=== PATIENT | male | born 1945 | race Caucasian/White ===

== ENCOUNTER 2022-10-19 07:22 | Outpatient (OUT) | payer MEDICARE, BC, SELFPAY ==
[2022-10-19 07:40] LABS: Basophils Absolute Auto 0.1 10^3/uL (0.0-0.1); Basophils Percent Auto 1.2 % (0.2-2.0); Eosinophils Absolute Auto 0.4 10^3/uL (0.0-0.7); Eosinophils Percent Auto 6.1 % (0.9-7.0); Hematocrit 42.2 % (42.0-54.0); Hemoglobin 14.1 g/dL (14.0-18.0); Immature Granulocytes Abs Auto 0.01 10^3/uL (0.00-0.03); Immature Granulocytes Pct Auto 0.2 % (0.0-0.5); Lymphocytes Absolute Auto 1.5 10^3/uL (1.2-3.8); Lymphocytes Percent Auto 23.5 % (20.5-60.0); Mean Corpuscular HGB Conc 33.4 g/dL (29.9-35.2); Mean Corpuscular Hemoglobin 33.7 pg (25.9-34.0); Mean Corpuscular Volume 100.7 fL (80.0-94.0); Mean Platelet Volume 9.7 fL (9.5-13.5); Monocytes Absolute Auto 0.8 10^3/uL (0.3-0.8); Monocytes Percent Auto 12.1 % (1.7-12.0); Neutrophils Absolute Auto 3.7 10^3/uL (1.4-6.5); Neutrophils Percent Auto 56.9 % (43.0-75.0); Platelet Count 240 10^3/uL (150-450); Red Blood Count 4.19 10^6/uL (4.70-6.10); Red Cell Distribution Width 14.3 % (11.0-15.0); White Blood Count 6.4 10^3/uL (4.0-11.0)
[2022-10-19 08:29] LABS: Alanine Aminotransferase 13 U/L (16-63); Albumin Globulin Ratio 1.1; Albumin Level 3.3 g/dL (3.4-5.0); Alkaline Phosphatase 74 U/L (46-116); Anion Gap 7.8; Aspartate Amino Transferase 9 U/L (15-37); BUN Creatinine Ratio 18.4; Bilirubin Total 0.5 mg/dL (0.2-1.0); Calcium 8.6 mg/dL (8.5-10.1); Carbon Dioxide 32.1 mmol/L (21.0-32.0); Chloride 103 mmol/L (98-107); Chol HDL Ratio 2.1; Cholesterol 160 mg/dL (<=200); Estimated GFR (African America >60 (>=60); Estimated GFR (Non-African Ame >60 (>=60); Free T3 2.01 pg/mL (2.18-3.98); Globulin 2.9 g/dL; Glucose 161 mg/dL (74-106); HDL Cholesterol 77 mg/dL (40-60); Potassium 3.9 mmol/L (3.5-5.1); Sodium 139 mmol/L (136-145); Thyroid Stimulating Hormone 4.536 uIU/mL (0.358-3.740); Total Protein 6.2 g/dL (6.4-8.2); Triglycerides 67 mg/dL (<=150); VLDL CHOLESTEROL 13.4 mg/dL
[2022-10-19 10:40] LABS: Estimated Average Glucose 171 mg/dL; Glycohemoglobin A1C 7.6 % (4.5-6.2)
[2022-10-20 08:12] LABS: PSA, Free <0.02 ng/mL; Prostate Specific Ag <0.1 ng/mL (0.0-4.0)
== END 2022-10-19 07:23 | disposition home or self-care (01) ==
LOC: LAB 07:27
PROVIDERS: PCP Family Medicine; Visit Provider Family Medicine
DX: E78.5 Hyperlipidemia, unspecified (principal); C61 Malignant neoplasm of prostate; I10 Essential (primary) hypertension; E11.9 Type 2 diabetes mellitus without complications; Z12.12 Encounter for screening for malignant neoplasm of rectum
CPT/HCPCS: 36415; 80053; 80061; 83036; 84153; 84154; 84436; 84443; 84481; 85025

== ENCOUNTER 2023-10-26 07:51 | Outpatient (OUT) | payer MEDICARE, BC, SELFPAY ==
[2023-10-26 08:22] LABS: Basophils Absolute Auto 0.1 10^3/uL (0.0-0.1); Basophils Percent Auto 1.5 % (0.2-2.0); Eosinophils Absolute Auto 0.2 10^3/uL (0.0-0.7); Eosinophils Percent Auto 3.4 % (0.9-7.0); Hematocrit 42.3 % (42.0-54.0); Hemoglobin 13.8 g/dL (14.0-18.0); Immature Granulocytes Abs Auto 0.01 10^3/uL (0.00-0.03); Immature Granulocytes Pct Auto 0.2 % (0.0-0.5); Lymphocytes Absolute Auto 1.6 10^3/uL (1.2-3.8); Mean Corpuscular HGB Conc 32.6 g/dL (29.9-35.2); Mean Corpuscular Hemoglobin 34.1 pg (25.9-34.0); Mean Corpuscular Volume 104.4 fL (80.0-94.0); Mean Platelet Volume 9.8 fL (9.5-13.5); Monocytes Absolute Auto 0.6 10^3/uL (0.3-0.8); Neutrophils Absolute Auto 2.2 10^3/uL (1.4-6.5); Neutrophils Percent Auto 47.9 % (43.0-75.0); Platelet Count 263 10^3/uL (150-450); Red Blood Count 4.05 10^6/uL (4.70-6.10); Red Cell Distribution Width 14.1 % (11.0-15.0); White Blood Count 4.7 10^3/uL (4.0-11.0)
[2023-10-26 08:31] LABS: Estimated Average Glucose 148 mg/dL; Glycohemoglobin A1C 6.8 % (4.5-6.2)
[2023-10-26 08:55] LABS: Alanine Aminotransferase 17 U/L (16-63); Albumin Globulin Ratio 1.4; Albumin Level 3.6 g/dL (3.4-5.0); Alkaline Phosphatase 70 U/L (46-116); Anion Gap 10.8; Aspartate Amino Transferase 11 U/L (15-37); BUN Creatinine Ratio 18.8; Bilirubin Total 0.8 mg/dL (0.2-1.0); Calcium 8.5 mg/dL (8.5-10.1); Carbon Dioxide 34.1 mmol/L (21.0-32.0); Chloride 102 mmol/L (98-107); Chol HDL Ratio 2.1; Cholesterol 172 mg/dL (<=200); Estimated GFR (African America >60 (>=60); Estimated GFR (Non-African Ame >60 (>=60); Free T3 2.45 pg/mL (2.18-3.98); Globulin 2.5 g/dL; Glucose 153 mg/dL (74-106); HDL Cholesterol 81 mg/dL (40-60); Potassium 3.9 mmol/L (3.5-5.1); Sodium 143 mmol/L (136-145); Thyroid Stimulating Hormone 4.549 uIU/mL (0.358-3.740); Total Protein 6.1 g/dL (6.4-8.2); Triglycerides 43 mg/dL (<=150); VLDL CHOLESTEROL 8.6 mg/dL
[2023-10-27 13:08] LABS: PSA, Free <0.02 ng/mL; Prostate Specific Ag <0.1 ng/mL (0.0-4.0)
== END 2023-10-26 07:52 | disposition home or self-care (01) ==
LOC: LAB 07:54
PROVIDERS: PCP Family Medicine; Visit Provider Family Medicine
DX: E78.5 Hyperlipidemia, unspecified (principal); E11.9 Type 2 diabetes mellitus without complications; I10 Essential (primary) hypertension; N40.0 Benign prostatic hyperplasia without lower urinary tract symptoms; Z12.12 Encounter for screening for malignant neoplasm of rectum
CPT/HCPCS: 36415; 80053; 80061; 83036; 84153; 84154; 84436; 84443; 84481; 85025

== ENCOUNTER 2023-11-02 08:15 | Outpatient (REF) | payer MEDICARE, BC, SELFPAY ==
[2023-11-02 13:00] LABS: Internal Control Within Normal Limits; Occult Blood Positive
== END 2023-11-02 08:16 | disposition home or self-care (01) ==
LOC: LAB 08:15
PROVIDERS: PCP Family Medicine; Visit Provider Family Medicine
DX: E78.5 Hyperlipidemia, unspecified (principal); E11.9 Type 2 diabetes mellitus without complications; I10 Essential (primary) hypertension; N40.0 Benign prostatic hyperplasia without lower urinary tract symptoms; Z12.12 Encounter for screening for malignant neoplasm of rectum
CPT/HCPCS: G0328

== ENCOUNTER 2024-05-30 13:00 | Outpatient (OUT) | payer MEDICARE, BC, SELFPAY ==
--- NOTE | 2024-05-30 13:20 | CT_ITS ---
[address] [address] Patient Name: SUHAS HAMMOND MRN: [id number] date: 1945 Sex: M Assigned Patient Location: LAB Current Patient Location: LAB Accession/Order Number: [id number] Exam Date: 05/30/2024 13:40 Report Date: 05/30/2024 14:59 At the request of: SILVER CHRISTIANSON Procedure: CT angio neck EXAM: CT angiogram of the head and neck using 100 mL of IV iodinated contrast. 3D images were generated on an independent workstation for better evaluation of the vasculature. NASCET criteria were used when evaluating the carotid arteries. Dose reduction technique used: Automated exposure control and/or adjustment of the mA and/or kV according to patient size and/or use of iterative reconstruction technique. REASON FOR EXAM: Vison Loss COMPARISON: None FINDINGS: CTA: No large vessel occlusion. No significant intracranial arterial stenoses. No arterial dissections. No intracranial aneurysms. Patent dural venous sinuses. Bilateral common carotid, bilateral internal carotid and bilateral vertebral arteries are patent without significant stenosis, aneurysm or dissection in the neck. Probable carotid bifurcation atherosclerotic plaque without significant associated stenosis. NON-VASCULAR: No mass effect or midline shift. No hydrocephalus. Paranasal sinuses and mastoid air cells are clear. Remainder unremarkable. CT/CT angio neck IMPRESSION: No acute arterial abnormalities in the head or neck. Electronically authenticated by: MADELEINE HARRISON Date: 05/30/2024 14:59
--- NOTE | 2024-05-30 13:20 | CT_ITS ---
[address] [address] Patient Name: SUHAS HAMMOND MRN: [id number] date: 1945 Sex: M Assigned Patient Location: LAB Current Patient Location: LAB Accession/Order Number: [id number] Exam Date: 05/30/2024 13:40 Report Date: 05/30/2024 14:59 At the request of: SILVER CHRISTIANSON Procedure: CT angio head EXAM: CT angiogram of the head and neck using 100 mL of IV iodinated contrast. 3D images were generated on an independent workstation for better evaluation of the vasculature. NASCET criteria were used when evaluating the carotid arteries. Dose reduction technique used: Automated exposure control and/or adjustment of the mA and/or kV according to patient size and/or use of iterative reconstruction technique. REASON FOR EXAM: Vison Loss COMPARISON: None FINDINGS: CTA: No large vessel occlusion. No significant intracranial arterial stenoses. No arterial dissections. No intracranial aneurysms. Patent dural venous sinuses. Bilateral common carotid, bilateral internal carotid and bilateral vertebral arteries are patent without significant stenosis, aneurysm or dissection in the neck. Probable carotid bifurcation atherosclerotic plaque without significant associated stenosis. NON-VASCULAR: No mass effect or midline shift. No hydrocephalus. Paranasal sinuses and mastoid air cells are clear. Remainder unremarkable. CT/CT angio head IMPRESSION: No acute arterial abnormalities in the head or neck. Electronically authenticated by: MADELEINE HARRISON Date: 05/30/2024 14:59
[2024-05-30 13:31] LABS: Estimated GFR (African America >60 (>=60 mL/min/1.73m^2); Estimated GFR (Non-African Ame >60 (>=60 mL/min/1.73m^2)
--- NOTE | 2024-05-30 13:59 | CA_ITS ---
Patient Name: SUHAS HAMMOND MR#: [id number] : 1945 Exam Date: 05/30/2024 Ordering Doctor: DR Avni Flynn . ECHOCARDIOGRAM REPORT PROCEDURE: CA ECHO DOPPLER COMPLETE INDICATIONS: Vision loss COMPARISON: None. DESCRIPTION: COMPLETE ECHOCARDIOGRAM Real-time transthoracic echocardiography with 2D, M-mode, spectral and color flow Doppler performed. QUALITY: Technical quality was good. LEFT VENTRICLE: Normal chamber size. Mild concentric left ventricular hypertrophy. Global left ventricular systolic function is normal. LV EF: Visual estimation of left ventricular ejection fraction is 65-70%. DIASTOLIC: Normal diastolic function. ATRIAL SEPTUM: LEFT ATRIUM: Mild dilatation. RIGHT ATRIUM: Mild dilatation. RIGHT VENTRICLE: Normal chamber size. Normal right ventricular systolic function. TRICUSPID VALVE: Normal mobility and thickness. No stenosis with mild regurgitation. Mild pulmonary hypertension. RVSP 42 mmHg MITRAL VALVE: Normal mobility and thickness. No evidence of mitral valve stenosis. There is no mitral annular calcification. Trivial mitral regurgitation. AORTIC VALVE: Normal trileaflet appearance. Mildly calcified left coronary cusp of the aortic valve. Normal leaflet mobility. No evidence of aortic valve stenosis. Trivial aortic regurgitation. AORTIC ROOT: Normal diameter and appearance. PULMONIC VALVE: Normal thickness and mobility. No stenosis. Trivial regurgitation. PERICARDIUM: No evidence of pericardial effusion. IVC: Collapses with inspirations. Normal size. PLEURA: CONCLUSION: 1. Mild concentric left ventricular hypertrophy with normal systolic function. LVEF is estimated at 65-70%. 2. Normal right ventricular size and systolic function. 3. Normal diastolic function. 4. Mild biatrial dilatation. 5. Mild tricuspid regurgitation. 6. Mildly elevated right-sided pressures. 7. If cardiac source of embolism is suspected then a transesophageal echocardiogram is a better test for evaluation. Adult Echocardiography Procedure Report Left Ventricle LVEDD (3.7 - 5.6 cm): 4.71 cm LVESD (2.2 - 4.0 cm): 3.06 cm LVIVS thickness (0.6 - 1.2 cm): 1.30 cm LVPW thickness (0.5 - 1.0 cm): 1.21 cm e': 0.10 m/s E - e': 8.91 LVOT Max Gradient: 5.81 mm[Hg], 5.98 mm[Hg] LVOT Area (cm2): 1.21 m/s Peak Velocity (LVOT): 1.20 m/s, 1.22 m/s Mean Velocity (LVOT): 0.77 m/s LVOT Diameter 2.15 cm Left Ventricular Ejection Fraction: 65-70 % Left Atrium LA Volume Index (2D A2C): 39.96 ml/m2 Left Atrium Systolic Dimension: 4.22 cm Mitral Valve MV E to A Ratio: 0.94 Mitral Valve A-Wave Peak Velocity: 0.96 m/s Mitral Valve E-Wave Peak Velocity: 0.90 m/s Right Ventricle RV Internal Diastolic Dimension: 3.58 cm Aorta AO Root Diam: 3.60 cm Ascending Ao Diam: 2.85 cm Aortic Valve AoV Area (Peak Zana): 2.51 cm2, 2.49 cm2 AoV Area (VTI): 2.36 cm2, 2.39 cm2 Peak Velocity(Antegrade Flow): 1.75 m/s Peak Gradient(Antegrade Flow): 12.30 mm[Hg] Mean Velocity(Antegrade Flow): 1.11 m/s Mean Gradient(Antegrade Flow): 5.81 mm[Hg] Velocity Time Integral: 40.90 cm Tricuspid Valve Peak Velocity (Regurgitant Flow): 2.55 m/s, 3.13 m/s, 2.93 m/s Pulmonic Valve Mean Gradient: 3.53 mm[Hg], 3.42 mm[Hg] Mean Velocity: 0.87 m/s, 0.86 m/s Peak Velocity: 1.37 m/s Peak Gradient: 7.50 mm[Hg], 7.50 mm[Hg] Right Atrium Right Atrium Systolic Pressure: 49.73 ml, 49.73 ml Dictated by: Quincy Ortiz M.D. on 05/30/2024 at 17:46 Approved by: Quincy Ortiz M.D. on 05/30/2024 at 18:44
== END 2024-05-30 13:01 | disposition home or self-care (01) ==
LOC: LAB 13:00
PROVIDERS: PCP Family Medicine; Visit Provider Family Medicine
DX: R06.02 Shortness of breath (principal); R07.9 Chest pain, unspecified
CPT/HCPCS: 36415; 70496; 70498; 82565; 93306; Q9967

== ENCOUNTER 2024-11-03 07:04 | Outpatient (OUT) | payer MEDICARE, BC, SELFPAY ==
--- OUTSIDE RECORDS SUMMARY | 2024-05-30 14:51 | XMS_ITS ---
Author Organization [facility] in [place] Address [address] [place] [address] Care Team Providers Care Vp Of Digital Marketing Name Role Phone Brenden Flynn Primary Care Provider REASON FOR VISIT ECHO RESULTS Encounters Encounter Location Date Provider Diagnosis [facility] [address] [place] [address] 05/30/2024 Brenden Flynn Plan Of Treatment No Information Progress Notes * Dawson HAMMOND RDOB:[birth year] (78 yo M)Acc No.[id number]:05/30/2024 Patient: Jorge Dawson GONCALVES :1945 A ge:78 Y S ex:Male Address:[address] [place], [place] [address] [address] * true * Date: Generated for Antonioi den/Fatraceyg/eTransmitting on: 0 11/03/2024 07:10 AM EDT
--- OUTSIDE RECORDS SUMMARY | 2024-08-21 06:15 | XMS_ITS ---
Author Organization [facility] in [place] Address [address] [place] [address] Care Team Providers Care Calciner Feeder Name Role Phone Brenden Flynn Primary Care Provider REASON FOR VISIT Presents to office alone for c/o sore throat x6 days. Said had a head cold when it started but those symptoms are better Medications Medication SIG (Take, Route, Frequency, Duration) Notes Start Date End Date Status traZODone HCl 50 MG 1 tablet Orally twic e daily for 90 days Active Viagra 100 MG 1 tablet as needed O rally Once a day for 90 days Active Pioglitazone HCl 45 MG Take 1 tablet by mouth once daily Orally Once a day for 90 days Active predniSONE 20 MG 2 tablets Orally Onc e a day for 5 days 08/21/2024 Active Azithromycin 250 MG 2 tabs today then 1 tab Orally daily for 5 days 08/21/2024 Active Lisinopril 40 MG Take 1 tablet by sonal th once daily for 90 Active metFORMIN HCl 500 MG 2 tablet with a aristides l Orally twice daily for 90 days 09/07/2022 Active Lancets Super Thin 28G - as directed Active Pantoprazole Sodium 40 MG 1 tablet 1/2 t o 1 hour before morning meal Orally Once a day for 90 days Active Invokana 100 MG 1 tablet before the first meal of the day Orally Once a day for 90 days Active Atorvastatin Calcium 20 MG Take 1 tablet by mouth once daily Orally Once a day for 90 days Active Accu-Chek Mary Plus - as directed In Vitro Active amLODIPine Besylate 5 MG Take 1 tablet b y mouth once daily for 90 Active Social History Tobacco Use: Social History Observation Description Date Details (start date - stop date) Never Smoker NA - NA Tobacco Use/Smoking Question Answer Notes Patient is a nonsmoker AUDIT-C (Standard) Question Answer Notes Did you have a drink containing alcohol in the p ast year? No Points 0 Interpretation Negative Vital Signs Temperature 99.1 degrees Fahrenheit 08/22/19 25 Blood pressure systolic 170 mm Hg 08/22/19 25 Blood pressure diastolic 84 mm Hg 025 Height 69 in 08/21/2024 Weight 176.2 lbs 08/21/2024 BMI 26.02 kg/m2 08/21/2024 Encounters Encounter Location Date Provider Diagnosis [facility] [address] [place] [address] 08/21/2024 Brenden Flynn Acute non-recurrent sinusitis, unspecified location J01.90 and Nasal congestion R09.81 Assessments Encounter Date Diagnosis (ICD Code) Assessment Notes Treatment Notes Treatment Clinical Notes Section Notes 08/21/2024 Acute non-recurrent sinusitis, unspecified location (ICD-10 - J01.90) Rest and drink more liquids, especially water. You may use a humidifier or vaporizer to help keep the drainage moist. Qsvu-ooa-caixnsi Nasal Saline may help the stuffy and runny nose. Use Ibuprofen and or Tylenol as needed for fever, chills, body aches or pain. Children 5 years old should not be given fkds-axt-uyurxry cough and cold medications such as guaifenesin and dextromethorphan. If you're over age 5, you may try azrc-cty-osqfknz cold medications such as guaifenesin and dextromethorphan, or multi-symptom cold reliever such as Dayquil to help reduce the symptoms. Antibiotics have been prescribed. You should take these until completed and follow the directions. Antibiotics can sometimes cause upset stomach, and in rare cases, serious allergic reactions or serious gastrointestinal problems. If you start having severe abdominal pain, severe vomiting, or bloody diarrhea, you should be reevaluated by your physician or urgent care immediately. Follow up with your Primary Care Provider or return to clinic if symptoms do not improve within 3-5 days 08/21/2024 Nasal congestion (ICD-10 - R09.81) Plan Of Treatment Medication Medication Name Sig Start Date Stop Date Notes predniSONE 20 MG 2 tablets Orally Once a day for 5 days Azithromycin 250 MG 2 tabs today then 1 tab Orally daily for 5 days 08/21/2024 Treatment Notes Assessment Notes Acute non-recurrent sinusiti s, unspecified location Rest and drink more liquids, especially water. You may use a humidifier or vaporizer to help keep the drainage moist. Ijbi-vbf-xpcdfud Nasal Saline may help the stuffy and runny nose. Use Ibuprofen and or Tylenol as needed for fever, chills, body aches or pain. Children 5 years old should not be given cybh-xoo-quwdjdo cough and cold medications such as guaifenesin and dextromethorphan. If you're over age 5, you may try jcxq-aae-xdrjbzn cold medications such as guaifenesin and dextromethorphan, or multi-symptom cold reliever such as Dayquil to help reduce the symptoms. Antibiotics have been prescribed. You should take these until completed and follow the directions. Antibiotics can sometimes cause upset stomach, and in rare cases, serious allergic reactions or serious gastrointestinal problems. If you start having severe abdominal pain, severe vomiting, or bloody diarrhea, you should be reevaluated by your physician or urgent care immediately. Follow up with your Primary Care Provider or return to clinic if symptoms do not improve within 3-5 days Next Appt Details Follow Up: 3-5 days if not i mproving, Reason: Progress Notes * Dawson CAIN RDOB:[birth year] (78 yo M)Acc No.[id number]:08/21/2024 Progress Note Patient: Dawson MASON Provider: Carolina Flynn ([facility] Madelyn :1945 A ge:78 Y S ex:Male Date:08/21/2024 Address:[address], [id number] Check In:10:04 AM ESTCheck O ut:10:38 AM EST Subjective: * Chief Complaints: * P resents to office alone for c/o sore throat x6 days. Said had a head cold when it started but those symptoms are better * HPI: S inusitis: The patient complains of symptoms of sinus infection. The symptoms have been present for 1-2 days. The symptoms are moderate. Symptomatic treatment has included OTC medication. Associated symptoms include headache, facial pain, runny nose, nasal congestion. * ROS: S kin: Rash d enies. E NT: Comments S ee HPI for details. C ardiovascular: Edema d enies. P alpitations d enies. ? R espiratory: Chest pain d enies. C ough d enies. W heezing?denies. G astrointestinal: Abdominal pain d enies. N ausea d enies. V omiting d enies. * Active Problem List Z91.81 History of falling Modified On:09/18/2022 Status:confirmed E78.5 Hyperlipidemia Modified On:09/23/2022 Status:confirmed I10 Hypertension Modified On:09/23/2022 Status:confirmed Z00.00 Well adult Modified On:09/18/2022 Status:confirmed R10.11 Abdominal pain, RUQ Modified On:09/18/2022 Status:confirmed C61 Carcinoma of prostat e Modified On:09/23/2022 Status:confirmed E11.9 Diabetes mellitus, t ype II Modified On:09/23/2022 Status:confirmed N40.0 Benign hypertrophy o f prostate Modified On:09/18/2022 Status:confirmed H54.7 Vision loss Modified On:05/24/2024 Status:confirmed * Medical History: * Surgical History: S eed Implant for Prostate Cancer 2004All teeth pulled shave biopsy right scalp * Hospitalization/Major Diagno stic Procedure: * Family History: F ather: 60 yrs. M other: 52 yrs. B rother(s): arthritis, osteoarthritis, diagnosed with Diabetes mellitus without mention of complication, type II or unspecified type, not stated as uncontrolled. S on(s): alive, diagnosed with Diabetes mellitus without mention of complication, type II or unspecified type, not stated as uncontrolled. D aughter(s): alive, diagnosed with Unspecified essential hypertension. S ister(s): diagnosed with Diabetes mellitus without mention of complication, type II or unspecified type, not stated as uncontrolled. 2 brother(s) , 4 sister(s) . 2 son(s) , 1 daughter(s) . . * Social History: T obacco Use: T obacco Use/Smoking P atient is a n onsmoker D rug/Alcohol: A HAI-C (Standard) D id you have a drink containing alcohol in the past year? N o P oints 0 I nterpretation N egative * Medications: T akingAccu-Chek Mary Plus(Glucose Blood) - Strip as directed In Vitro amLODIPine Besylate 5 MG Tablet Take 1 tablet by mouth once daily Atorvastatin Calcium 20 MG Tablet Take 1 tablet by mouth once daily Orally Once a day Invokana(Canagliflozin) 100 MG Tablet 1 tablet before the first meal of the day Orally Once a day Lancets Super Thin 28G(Lancets) - Miscellaneous as directed Lisinopril 40 MG Tablet Take 1 tablet by mouth once daily metFORMIN HCl 500 MG Tablet 2 tablet with a meal Orally twice daily Pantoprazole Sodium 40 MG Tablet Delayed Release 1 tablet 1/2 to 1 hour before morning meal Orally Once a day Pioglitazone HCl 45 MG Tablet Take 1 tablet by mouth once daily Orally Once a day traZODone HCl 50 MG Tablet 1 tablet Orally twice daily Viagra 100 MG Tablet 1 tablet as needed Orally Once a day Medication List reviewed and reconciled with the patientTaking Accu-Chek Mary Plus(Glucose Blood) - Strip as directed In Vitro Taking amLODIPine Besylate 5 MG Tablet Take 1 tablet by mouth once daily Taking Atorvastatin Calcium 20 MG Tablet Take 1 tablet by mouth once daily Orally Once a day Taking Invokana(Canagliflozin) 100 MG Tablet 1 tablet before the first meal of the day Orally Once a day Taking Lancets Super Thin 28G(Lancets) - Miscellaneous as directed Taking Lisinopril 40 MG Tablet Take 1 tablet by mouth once daily Taking metFORMIN HCl 500 MG Tablet 2 tablet with a meal Orally twice daily Taking Pantoprazole Sodium 40 MG Tablet Delayed Release 1 tablet 1/2 to 1 hour before morning meal Orally Once a day Taking Pioglitazone HCl 45 MG Tablet Take 1 tablet by mouth once daily Orally Once a day Taking traZODone HCl 50 MG Tablet 1 tablet Orally twice daily Taking Viagra 100 MG Tablet 1 tablet as needed Orally Once a day Medication List reviewed and reconciled with the patient Objective: * Vitals: W t:176.2lbs, Ht: 69 in, BP:170/84mm Hg, Temp:99.1F, BMI:26.02Index, Ht-cm: 175.26 cm, Wt-k.92 kg. * Examination: G eneral Examination: GENERAL APPEARANCE: in no acute distress, well developed, well nourished. ENT: ear and nose external appearance normal, tympanic membranes clear bilaterally, facial tenderness to palpation over sinuses. EYES: pupils equal, round, reactive to light and accomodations. ORAL CAVITY: mucosa moist. NECK: n daniel supple, full range of motion, no cervical lymphadenopathy. LUNGS: c lear to auscultation bilaterally. CARDIO: no murmurs, regular rate and rhythm, S1, S2 normal. ABDOMEN: soft, nontender , not distended, bowel sounds are active. SKIN: no suspicious lesions, warm and dry. EXTREMITIES: no clubbing, cyanosis, or edema. NEUROLOGIC: nonfocal, motor strength of upper/lower extremities intact , sensory exam intact. Assessment: * Assessment: 1. A cute non-recurrent sinusitis, unspecified location - J01.90 (Primary) 2 .?Nasal congestion - R09.81 Plan: * Treatment: * Procedure Codes: * Preventive Medicine: Screenings/Counseling: B [place] ACTION PLAN Above Normal BMI Follow-up D ietary management education, guidance, and counseling See treatment section of progress note for complete details of management plan. F ALL RISK SCREENING Fall Risk Assessment: N o falls in the past year * Follow Up: 3 -5 days if not improving * * Sign off status: Completed Visit Status: C HK (Check Out) true * Provider: Carolina Flynn ([facility])MD Date: 0 08/21/2024 Generated for Printi ng/Fatraceyg/eTransmitting on: 0 11/03/2024 07:10 AM EDT History and Physical Notes * Examination Category Sub-Category Detail Notes Category Not es General Examination GENERAL APPEARANCE: in no ac jaswant distress, well developed, well nourished ENT: ear and nose externa l appearance normal, tympanic membranes clear bilaterally, facial tenderness to palpation over sinuses EYES: pupils equal, round, reactive to light and accomodations NECK: neck supple, full ra nge of motion, no cervical lymphadenopathy CARDIO: no murmurs, regular rate and rhythm, S1, S2 normal LUNGS: clear to auscultatio n bilaterally ABDOMEN: soft, nontender , no t distended, bowel sounds are active NEUROLOGIC: nonfocal, motor stre ngth of upper/lower extremities intact , sensory exam intact SKIN: no suspicious lesion s, warm and dry EXTREMITIES: no clubbing, cyanosi s, or edema ORAL CAVITY: mucosa moist
--- OUTSIDE RECORDS SUMMARY | 2024-11-01 07:00 | XMS_ITS ---
Author Organization [facility] in [place] Address [address] [place] [address] Care Team Providers Care Clinical Services Professional Name Role Phone Brenden Flynn Primary Care Provider Allergies No Known Allergies REASON FOR VISIT Left hip pain- started over the weekend after a car ride, Has been taking Aleve and Tylenol- not sleeping as well as normally does since the pain, Due for yearly labs as well Medications Medication SIG (Take, Route, Frequency, Duration) Notes Start Date End Date Status Pantoprazole Sodium 40 MG 1 tablet 1/2 t o 1 hour before morning meal Orally Once a day for 90 days Active Pioglitazone HCl 45 MG Take 1 tablet by mouth once daily for 90 Active traZODone HCl 50 MG Take 1 tablet by sonal th twice daily for 90 Active Viagra 100 MG 1 tablet as needed O rally Once a day for 90 days Active Invokana 100 MG 1 tablet before the first meal of the day Orally Once a day for 90 days Active Lancets Super Thin 28G - as directed Active Lisinopril 40 MG Take 1 tablet by sonal th once daily for 90 Active metFORMIN HCl 500 MG 2 tablet with a aristides l Orally twice daily for 90 days 09/07/2022 Active predniSONE 20 MG 3 tablets Orally Onc e a day for 5 days 11/01/2024 Active Atorvastatin Calcium 20 MG Take 1 [...] Question Answer Notes Patient is a nonsmoker Problems Problem Type SNOMED Code ICD Code Onset Dates Problem Status W/U Status Risk Notes Problem Sciatica (32286216) Sciatic leg pain (M54.30) Active confirmed Vital Signs Blood pressure systolic 152 mm Hg 11/02/19 25 Blood pressure diastolic 82 mm Hg 025 Height 69 in 11/01/2024 Weight 172.0 lbs 11/01/2024 BMI 25.4 kg/m2 11/01/2024 Encounters Encounter Location Date Provider Diagnosis [facility] ([place], [place]) [address] [place] [address] 11/01/2024 Brenden Hoamee Sciatic leg pain M54 .30 ; Hyperlipidemia E78.5 ; Hypertension I10 ; Carcinoma of prostate C61 and Diabetes mellitus, type II E11.9 Assessments Encounter Date Diagnosis (ICD Code) Assessment Notes Treatment Notes Treatment Clinical Notes Section Notes 11/01/2024 Sciatic leg pain (ICD-10 - M54.30) 11/01/2024 Hyperlipidemia (ICD-10 - E78.5) 11/01/2024 Hypertension (ICD-10 - I10) 11/01/2024 Carcinoma of prostate (ICD-10 - C61) 11/01/2024 Diabetes mellitus, type II (ICD-10 - E11.9) Plan Of Treatment Medication Medication Name Sig Start Date Stop Date Notes predniSONE 20 MG 3 tablets Orally Once a day for 5 days Pending Test Test Name Order Date HEMOGLOBIN A1C (GLYCO) 11/01/2024 LIPID PANEL (CHOL/TRIG/HDL/LDL) 11/02/19 25 URIC ACID 11/01/2024 PSA-FREE AND TOTAL 11/01/2024 THYROID PANEL (T4/TSH/FREE T3) 5 CMP (COMP MET MELGAR) w/eGFR CKD-EPI 2024 CBC WITH DIFF 11/01/2024 Medications Administered Medication Instructions Date of Administration Dosage Notes Triamcinolone 40 mg/ml 11/01/2024 80 mg Progress Notes * MAURICIODawson WAYNE RDOB:[birth year] (79 yo M)Acc No.[id number]:11/01/2024 UNLOCKED PROGRESS NOTE Progress Note Patient: Dawson MASON Provider: Carolina Flynn ([facility])MD :1945 A ge:79 Y S ex:Male Date:11/01/2024 Address:[address] [place] [address] JESSI MUNOZ [id number] Check In:10:44 AM ESTCheck O ut:11:25 AM EST Subjective: * Chief Complaints: * 1 . Left hip pain- started over the weekend after a car ride. 2. Has been taking Aleve and Tylenol- not sleeping as well as normally does since the pain. 3. Due for yearly labs as well. * HPI: G eneral: was riding in a car for awhile - no injury - Left hip - getting wors -e sumit going on for 5 days tried motrina nd tyrlpnol no helping. * Medical History: A bdominal pain, RUQ, History of falling, Well adult, Hypertension, Diabetes mellitus, type II, Hyperlipidemia, Benign hypertrophy of prostate, Carcinoma of prostate, Rectal bleeding, Kidney stones. * Surgical History: S eed Implant for Prostate Cancer 2004, All teeth pulled , shave biopsy right scalp . * Hospitalization/Major Diagno stic Procedure: Carolina gaxiola Past Hospitalization. * Family History: F ather: 60 yrs. [...] Use/Smoking P atient is a n onsmoker * Medications: T aking Accu-Chek Mary Plus(Glucose Blood) - Strip as directed In Vitro , Taking amLODIPine Besylate 5 MG Tablet Take 1 tablet by mouth once daily , Taking Atorvastatin Calcium 20 MG Tablet Take 1 tablet by mouth once daily Orally Once a day , Taking Invokana(Canagliflozin) 100 MG Tablet 1 tablet before the first meal of the day Orally Once a day , Taking Lancets Super Thin 28G(Lancets) - Miscellaneous as directed , Taking Lisinopril 40 MG Tablet Take 1 tablet by mouth once daily , Taking metFORMIN HCl 500 MG Tablet 2 tablet with a meal Orally twice daily , Taking Pantoprazole Sodium 40 MG Tablet Delayed Release 1 tablet 1/2 to 1 hour before morning meal Orally Once a day , Taking Pioglitazone HCl 45 MG Tablet Take 1 tablet by mouth once daily , Taking traZODone HCl 50 MG Tablet Take 1 tablet by mouth twice daily , Taking Viagra 100 MG Tablet 1 tablet as needed Orally Once a day , Discontinued Azithromycin 250 MG Tablet 2 tabs today then 1 tab Orally daily , Discontinued predniSONE 20 MG Tablet 2 tablets Orally Once a day , Medication List reviewed and reconciled with the patient * Allergies: N .K.D.A. Objective: * Vitals: W t:172.0lbs, Ht: 69 in, BP:152/82mm Hg, BMI:25.4Index, Ht-cm: 175.26 cm, Wt-k.02 kg. * Examination: A bdomen Exam:: D edent ROM in hip -mor buttocks area. Assessment: * Assessment: 1. S ciatic leg pain - M54.30 (Primary) 2 . C arcinoma of prostate - C61? 3. D iabetes mellitus, type II - E11.9 4 . H yperlipidemia - E78.5 5 . H ypertension - I10 Plan: * Treatment: 2. C arcinoma of prostate L AB: HEMOGLOBIN A1C (GLYCO) L AB: LIPID PANEL (CHOL/TRIG/HDL/LDL) L AB: URIC ACID L AB: PSA-FREE AND TOTAL L AB: THYROID PANEL (T4/TSH/FREE T3) L AB: CMP (COMP MET MELGAR) w/eGFR CKD-EPI L AB: CBC WITH DIFF 3. D iabetes mellitus, type II L AB: HEMOGLOBIN A1C (GLYCO) L AB: LIPID PANEL (CHOL/TRIG/HDL/LDL) L AB: URIC ACID L AB: THYROID PANEL (T4/TSH/FREE T3) L AB: CMP (COMP MET MELGAR) w/eGFR CKD-EPI L AB: CBC WITH DIFF 4. H yperlipidemia L AB: HEMOGLOBIN A1C (GLYCO) L AB: LIPID PANEL (CHOL/TRIG/HDL/LDL) L AB: URIC ACID L AB: THYROID PANEL (T4/TSH/FREE T3) L AB: CMP (COMP MET MELGAR) w/eGFR CKD-EPI L AB: CBC WITH DIFF 5. H ypertension L AB: HEMOGLOBIN A1C (GLYCO) L AB: LIPID PANEL (CHOL/TRIG/HDL/LDL) L AB: URIC ACID L AB: THYROID PANEL (T4/TSH/FREE T3) L AB: CMP (COMP MET MELGAR) w/eGFR CKD-EPI L AB: CBC WITH DIFF * Therapeutic Injections: Triamcinolone 40 mg/ml : 80 mg (Route: Intramuscular) given by Danielle Tam SA on left deltoid (Sciatic leg pain) * Procedure Codes: [id number] [phone] THERAP.INJ. OF MED. INTRAMUSCULAR OR SUBCUTANEOUS, J3301 TMC ACET,PER 10MG., Units: 8.00 * Preventive Medicine: Screenings/Counseling: B PR ACTION PLAN Above Normal BMI Follow-up D ietary management education, guidance, and counseling * * Electronic signature of Brenden Flynn MD, [phone] on 11/03/2024 at 07:10 AM EDT Sign off status: Pending Visit Status: C HK (Check Out) * Provider: Carolina Flynn ([facility])MD Date: 0 11/01/2024 Generated for Erika crenshaw/Katy/eTcynsmitting on: 0 11/03/2024 07:10 AM EDT History and Physical Notes * HPI (History of Present Illness) Category Sub-Category Detail Notes Category Not es General was riding in a car for awhile - no injury - Left hip - getting wors -e sumit going on for 5 days tried motrina nd tyrlpnol no helping Examination Category Sub-Category Detail Notes Category Not es Abdomen Exam: Dedent ROM in hip -mor buttocks area
--- OUTSIDE RECORDS SUMMARY | 2024-11-03 07:10 | XMS_ITS | CCD ---
Author Organization [facility] Care Team Providers Care Net Lead Developer Name Role Phone DR SILVER FLYNN Attending Unavailable SAMMY, DR SHEPPARD Admitting Unavailable SAMMY, DR SHEPPARD Primary Care Unavailable DR SILVER FLYNN Consulting Unavailable DR SILVER FLYNN Attending Unavailable SAMMY, DR SHEPPARD Admitting Unavailable SAMMY, DR SHEPPARD Primary Care Unavailable MD Silver Flynn Primary Care Provider [phone] MD Tylor Matos Attending Provider [phone] Tylor Matos Unavailable Tylor Matos Admjimmy Unavailable Silver Flynn Primary Care Unavailable NO FAMILY, PHYSICIAN Primary Care Unavailable Tylor Matos Unavailable Tylor Matos Admitting Unavailable Problems Active Problems Problem Classification Problem Date Documented Da te Episodic/Chronic Cancer of prostate (1 source) Malignant neoplasm of prostate; Translations: [MALIGNANT NEOPLASM OF PROSTATE] Onset: 10-14-2021 Chronic Congestive heart failure; nonhypertensive (1 source) Unspecified diastolic (congestive) heart failure; Translations: [UNSPECIFIED DIASTOLIC HEART FAILURE] Onset: 10-14-2021 Chronic Diabetes mellitus without complication (4 sources) Type 2 diabetes mellitus without complications; Translations: [TYPE 2 DM WITHOUT COMPLICATIONS] Onset: 10-13-2021 Chronic Diabetes mellitus without complication (1 source) Other abnormal glucose; Translations: [OTHER ABNORMAL GLUCOSE] Onset: 10-14-2021 Episodic Disorders of lipid metabolism (1 source) Hyperlipidemia, unspecified; Translations: [HYPERLIPIDEMIA UNSPECIFIED] Onset: 10-14-2021 Chronic Hypertension with complications and secondary hypertension (1 source) Hypertensive heart disease with heart failure; Translations: [HTN HEART DISEASE W/HEART FAIL] Onset: 10-14-2021 Chronic Other screening for suspected conditions (not mental disorders or infectious disease) (1 source) Encounter for screening for malignant neoplasm of prostate; Translations: [ENC SCREEN MALIG NEOPLASM PROSTATE] Onset: 10-14-2021 Episodic Past or Other Problems Problem Classification Problem Date Documented Da te Episodic/Chronic Neoplasms of unspecified nature or uncertain behavior (1 source) Neoplasm of unspecified behavior of bone, soft tissue, and skin; Translations: [Neoplasm of unspecified behavior of bone, soft tissue, and skin] Onset: 10-18-2023 Episodic Other non-epithelial cancer of skin (1 source) Basal cell carcinoma of skin of scalp and neck; Translations: [Basal cell carcinoma of skin of scalp and neck] Onset: 11-17-2023 Episodic Results Test Name Value Interpretation Reference Range Facility [facility] 11-17-2023 L Specimen: [id number] Received: 11/17/23 Status: PANCHO Mora Num: [id number] Spec Type: Surgical Subm Dr: Tylor Matos MD Tissues: A Skin-Other than Cyst, tag, debridement or plastic repair (RT FOREHEAD) Procedures: MELY/Nikolai, Gross/Micro L4 Age/ Patient Sex Location Account Attending Physician Dawson Cain Jr 78/M [place] [id number] Tylor Matos MD SPEC NUM: [id number] RECD: 11/17/23 STATUS: PANCHO MORA NUM: [id number] ASHVIN: 11/17/[address]: Tylor Matos MD ENTERED: 11/17/[address] [facility] [address]: SPEC TYPE: Surgical DEPT: S ORDERED: HE/7, Gross/Micro L4 ORDERED: HE7, Gross/Micro L4 Pathological Diagnosis Forehead, right (reexcision): Residual basal cell carcinoma, ulcerated; superficial type, multifocal Actinic changes Changes consistent with prior excision/biopsy No carcinoma seen in the margins of the specimen Clinical Information Nonhealing lesion reexcisional biopsy. C44.41 Basal cell carcinoma scalp Gross Description Received in formalin labeled with the patient's name, date of and right forehead is an oriented ovoid excision of alanis skin measuring 3.0 x 2.7 x 0.4 cm in depth. The specimen has been tagged with a staple by the surgeon designating the 12 o'clock position. The surface contains a 2.0 x 1.2 cm jagged and scaly previous biopsy site that comes to within 0.3 cm of 12:00 0.5 cm of 3:00 and 9:00 and 0.4 cm 6:00. The specimen is inked as follows: 12-3 is orange, 3-6 is green, 6-9 is red, 9-12 is blue and the deep margin is black. The specimen is serially sectioned from 12:00 to 6:00 and sequentially submitted in A1-A4 as follows: A1: 12:00 and 6:00 tips A2-A4: 12:00 to 6:00 region Specimen: [id number] Received: 11/17/23 Status: PANCHO Mora Num: [id number] Spec Type: Surgical Subm Dr: Tylor Matos MD Tissues: A Skin-Other than Cyst, tag, debridement or plastic repair (RT FOREHEAD) Procedures: JUAN, Lani/Mariely L4 Patient: Dawson Cain Jr [id number] (Continued) Specimen: [id number] Received: 11/17/23 (Continued) Signed (signature on file) Silvestre Phillips Jr., MD 11/21/23 2698 Specimen: [id number] Received: 11/17/23 Status: PANCHO Mora Num: [id number] Spec Type: Surgical Subm Dr: Tylor Matos MD Tissues: A Skin-Other than Cyst, tag, debridement or plastic repair (RT FOREHEAD) Procedures: MELYLani Menchaca/Mariely L4 Patient: Dawson Cain Jr [id number] (Continued) Specimen: [id number] Received: 11/17/23 (Continued) CPT Codes 43758 Specimen: [id number] Received: 11/17/23 Status: PANCHO Mora Num: [id number] Spec Type: Surgical Subm Dr: Tylor Matos MD Tissues: A Skin-Other than Cyst, tag, debridement or plastic repair (RT FOREHEAD) Procedures: Nikolai, Gross/Micro L4 Patient: Dawson Cain Jr [id number] (Continued) Signed (signature on file) Silvestre Phillips Jr., MD 11/21/231204 [facility] [place] 10-18-2023 L Specimen: [id number] Received: 10/19/23 Status: PANCHO Mora Num: [id number] Spec Type: Surgical Subm Dr: Tylor Matos MD Tissues: A Skin-Other than Cyst, tag, debridement or plastic repair (RT SCALP) Procedures: HE, Gross/Micro L4 Age/ Patient Sex Location Account Attending Physician Dawson Cain Jr 78/M [place] [id number] Tylor Matos MD SPEC NUM: [id number] RECD: 10/19/23 STATUS: RACHChristian MORA NUM: [id number] ASHVIN: 10/18/[address]: Tylor Matos MD ENTERED: 10/19/[address] [facility] [address]: SPEC TYPE: Surgical DEPT: S ORDERED: HE, Gross/Micro L4 ORDERED: HE, Gross/Micro L4 Pathological Diagnosis Skin lesion, right scalp, excision: Basal cell carcinoma, superficial type. Tumor is narrowly excised. Clinical Information Nonhealing skin lesion, primary biopsy. D49.2 Neoplasm of unspecified behavior of bone, soft tissue and skin. Gross Description Received in formalin labeled with the patient's name, date of and right scalp is a papular and crusted alanis skin shave biopsy measuring 1.0 x 1.0 x 0.2 cm. The specimen is inked blue along its resection margin, quadrisected and entirely submitted in A1. CPT Codes 88657 Specimen: [id number] Received: 10/19/23 Status: PANCHO Mora Num: [id number] Spec Type: Surgical Subm Dr: Tylor Matos MD Tissues: A Skin-Other than Cyst, tag, debridement or plastic repair (RT SCALP) Procedures: HE, Gross/Micro L4 Patient: AntDawson Jr [id number] (Continued) Signed (signature on file) Shandra Renteria MD 10/20/23 1557 Normal [facility] INSULINon 10-14-2021 Insulin 4.3 uIU/mL Normal 2.6-24.9 [facility] Comment on above: Performed By: #### I NSULIN #### [facility] [address] [place] [address] Dr. Jasmine Pak BNPon 10-13-2021 Natriuretic peptide B (Bld) [Mass/Vol] 107.0 pg/mL Normal <=1,800.0 [facility] Comment on above: Performed By: #### L IPID, URIC, BNP, CMP, T7, TSH #### [facility] [address] [place] [address] Dr. Jasmine Pak CBC AUTO DIFFon 10-13-2021 BASO # 0.1 103/ul Normal 0.0-0.1 [facility] Comment on above: Performed By: #### C BC #### [facility] [address] [place] [address] Dr. Jasmine Pak Basophils/100 WBC (Bld) 1.2 % Normal 0.2-2.0 [facility] Comment on above: Performed By: #### C BC #### [facility] [address] [place] [address] Dr. Jasmine Pak EO # 0.2 103/ul Normal 0.0-0.7 [facility] Comment on above: Performed By: #### C BC #### [facility] [address] [place] [address] Dr. Jasmine Pak Eosinophils/100 WBC (Bld) 4.6 % Normal 0.9-7.0 [facility] Comment on above: Performed By: #### C BC #### [facility] [address] [place] [address] Dr. Jasmine Pak Erythrocyte distribution width (RBC) [Ratio] 13.5 % Normal 11.0-15.0 [facility] Comment on above: Performed By: #### C BC #### [facility] [address] [place] [address] Dr. Jasmine Pak Hematocrit (Bld) [Volume fraction] 45.5 % Normal 42.0-54.0 [facility] Comment on above: Performed By: #### C BC #### [facility] [address] [place] [address] Dr. Jasmine Pak Hemoglobin (Bld) [Mass/Vol] 15.1 g/dL Normal 14.0-18.0 [facility] Comment on above: Performed By: #### C BC #### [facility] [address] [place] [address] Dr. Jasmine Pak IG # 0.01 10e3/ul Normal 0.00-0.03 [facility] Comment on above: Performed By: #### C BC #### [facility] [address] [place] [address] Dr. Jasmine Pak IG % 0.2 % Normal 0.0-0.5 [facility] Comment on above: Performed By: #### C BC #### [facility] [address] [place] [address] Dr. Jasmine Pak LYMPH # 1.7 103/ul Normal 1.2-3.8 [facility] Comment on above: Performed By: #### C BC #### [facility] [address] [place] [address] Dr. Jasmine Pak Lymphocytes/100 WBC (Bld) 35.1 % Normal 20.5-60.0 [facility] Comment on above: Performed By: #### C BC #### [facility] [address] [place] [address] Dr. Jasmine Pak MANUAL DIFF REQ NO Normal [facility] Comment on above: Performed By: #### C BC #### [facility] [address] [place] [address] Dr. Jasmine Pak MCH (RBC) [Entitic mass] 33.6 pg Normal 25.9-34.0 [facility] Comment on above: Performed By: #### C BC #### [facility] [address] [place] [address] Dr. Jasmine Pak MCHC (RBC) [Mass/Vol] 33.2 g/dL Normal 29.9-35.2 [facility] Comment on above: Performed By: #### C BC #### [facility] [address] [place] [address] Dr. Jasmine Pak MCV (RBC) [Entitic vol] 101.3 fL Critically high 80.0-94.0 [facility] Comment on above: Performed By: #### C BC #### [facility] [address] [place] [address] Dr. Jasmine Pak MONO # 0.6 103/ul Normal 0.3-0.8 [facility] Comment on above: Performed By: #### C BC #### [facility] [address] [place] [address] Dr. Jasmine Pak Monocytes/100 WBC (Bld) 12.7 % Critically high 1.7-12.0 [facility] Comment on above: Performed By: #### C BC #### [facility] [address] [place] [address] Dr. Jasmine Pak NEUT # 2.2 103/ul Normal 1.4-6.5 [facility] Comment on above: Performed By: #### C BC #### [facility] [address] [place] [address] Dr. Jasimne Pak Neutrophils/100 WBC (Bld) 46.2 % Normal 43.0-75.0 [facility] Comment on above: Performed By: #### C BC #### [facility] [address] [place] [address] Dr. Jasmine Pak Platelet mean volume (Bld) [Entitic vol] 9.9 fL Normal 9.5-13.5 [facility] Comment on above: Performed By: #### C BC #### [facility] [address] [place] [address] Dr. Jasmine Pak PLT 252 103/ul Normal 150-450 [facility] Comment on above: Performed By: #### C BC #### [facility] [address] [place] [address] Dr. Jasmine Pak RBC 4.49 106/ul Critically low 4.70-6.10 [facility] Comment on above: Performed By: #### C BC #### [facility] [address] [place] [address] Dr. Jasmine Pak WBC 4.8 103/ul Normal 4.0-11.0 [facility] Comment on above: Performed By: #### C BC #### [facility] [address] [place] [address] Dr. Jasmine Pak FREE THYROXINE INDEX T7on FTI 3.11 Normal 1.30-4.50 [facility] Comment on above: Performed By: #### L IPID, URIC, BNP, CMP, T7, TSH #### [facility] [address] [place] [address] Dr. Jasmine Pak T3U 37.0 % Normal 33.0-40.0 [facility] Comment on above: Performed By: #### L IPID, URIC, BNP, CMP, T7, TSH #### [facility] [address] [place] [address] Dr. Jasmine Pak T4 [Mass/Vol] 8.40 ug/dL Normal 4.50-12.10 [facility] Comment on above: Performed By: #### L IPID, URIC, BNP, CMP, T7, TSH #### [facility] [address], [place] [address] Dr. Jasmine Pak GLYCOHEMOGLOBIN A1Con 2021 ADA RECOMMENDATION SEE BELOW Normal [facility] Comment on above: Result Comment: ADA RECOMMENDED LIMIT 4.0 - 6.0 ADA THERAPEUTIC TARGET < 7.0 ACTION SUGGESTED > 7.0 Performed By: #### A 1C #### [facility] [address] [address] [address] Jasmine Pak Glucose [Mass/Vol] 154 mg/dL Normal [facility] Comment on above: Performed By: #### A 1C #### [facility] [address] [place] [address] Dr. Jasmine Pak HbA1c (Bld) [Mass fraction] 7.0 % Critically high 4.5-6.2 [facility] Comment on above: Performed By: #### A 1C #### [facility] [address] [address] [address] Jasmine Pak LIPID PROFILEon 10-13-2021 CHOL-HDL RATIO NORM SEE BELOW Normal [facility] Comment on above: Result Comment: 3.3 - 4.4 LOW RISK 4.4 - 7.1 AVERAGE RISK 7.1 - 11.0 MODERATE RISK >11.0 HIGH RISK Performed By: #### L IPID, URIC, BNP, CMP, T7, TSH #### [facility] [address], [place] [address] Dr. Jasmine Pak Cholesterol [Mass/Vol] 165 mg/dL Normal <=200 [facility] Comment on above: Performed By: #### L IPID, URIC, BNP, CMP, T7, TSH #### [facility] [address], [place] [address] Dr. Jasmine Pak Cholesterol in HDL [Mass/Vol] 64 mg/dL Critically high 40-60 [facility] Comment on above: Performed By: #### L IPID, URIC, BNP, CMP, T7, TSH #### [facility] [address] [address] [address] Jasmine Pak Cholesterol in LDL [Mass/Vol] 87.2 mg/dL Normal [facility] Comment on above: Performed By: #### L IPID, URIC, BNP, CMP, T7, TSH #### [facility] [address] [address] [address] Jasmine Pak Cholesterol.total/Cho lesterol in HDL [Mass ratio] 2.6 {ratio} Normal [facility] Comment on above: Performed By: #### L IPID, URIC, BNP, CMP, T7, TSH #### [facility] [address] [address] [address] Jasmine Pak HDL NORMAL > or = 60 mg/dl - LOW CARDIOVASCULAR RISK <40 mg/dl - HIGH CARDIOVASCULAR RISK Normal [facility] Comment on above: Performed By: #### L IPID, URIC, BNP, CMP, T7, TSH #### [facility] [address] [address] [address] Jasmine Pak LDL CALC NORMAL SEE BELOW Normal [facility] Comment on above: Result Comment: <100 mg/dl OPTIMAL 100 - 129 mg/dl NEAR OR ABOVE OPTIMAL 130 - 159 mg/dl BORDERLINE HIGH 160 - 189 mg/dl HIGH >190 mg/dl VERY HIGH Performed By: #### L IPID, URIC, BNP, CMP, T7, TSH #### [facility] [address] [address] [address] Jasmine Pak Triglyceride [Mass/Vol] 69 mg/dL Normal <=150 [facility] Comment on above: Performed By: #### L IPID, URIC, BNP, CMP, T7, TSH #### [facility] [address] [address] [address] Jasmine Pak VLDL CALC 13.8 mg/dL Normal [facility] Comment on above: Performed By: #### L IPID, URIC, BNP, CMP, T7, TSH #### [facility] [address] [address] [address] Jasmine Pak PROF 14(COMP METB)on 06-20-2 022 Albumin [Mass/Vol] 3.6 g/dL Normal 3.4-5.0 [facility] Comment on above: Performed By: #### L IPID, URIC, BNP, CMP, T7, TSH #### [facility] [address] [place] [address] Dr. Jasmine Pak Albumin/Globulin [Mass ratio] 1.4 {ratio} Normal [facility] Comment on above: Performed By: #### L IPID, URIC, BNP, CMP, T7, TSH #### [facility] [address] [place] [address] Dr. Jasmine Pak ALP [Catalytic activity/Vol] 65 U/L Normal 46-116 [facility] Comment on above: Performed By: #### L IPID, URIC, BNP, CMP, T7, TSH #### [facility] [address] [place] [address] Dr. Jasmine Pak ALT [Catalytic activity/Vol] 17 U/L Normal 16-63 [facility] Comment on above: Performed By: #### L IPID, URIC, BNP, CMP, T7, TSH #### [facility] [address] [place] [address] Dr. Jasmine Pak Anion gap [Moles/Vol] 12.0 mmol/L Normal [facility] Comment on above: Performed By: #### L IPID, URIC, BNP, CMP, T7, TSH #### [facility] [address] [place] [address] Dr. Jasmine Pak AST [Catalytic activity/Vol] 14 U/L Critically low 15-37 [facility] Comment on above: Performed By: #### L IPID, URIC, BNP, CMP, T7, TSH #### [facility] [address] [place] [address] Dr. Jasmine Pak Bilirubin [Mass/Vol] 0.7 mg/dL Normal 0.2-1.0 [facility] Comment on above: Performed By: #### L IPID, URIC, BNP, CMP, T7, TSH #### [facility] [address] [place] [address] Dr. Jasmine Pak Calcium [Mass/Vol] 8.5 mg/dL Normal 8.5-10.1 [facility] Comment on above: Performed By: #### L IPID, URIC, BNP, CMP, T7, TSH #### [facility] [address] [address] [address] Jasmine Pak Chloride [Moles/Vol] 104 mmol/L Normal 98-107 [facility] Comment on above: Performed By: #### L IPID, URIC, BNP, CMP, T7, TSH #### [facility] [address] [address] [address] Jasmine Pak CO2 [Moles/Vol] 30.0 mmol/L Normal 21.0-32.0 [facility] Comment on above: Performed By: #### L IPID, URIC, BNP, CMP, T7, TSH #### [facility] [address] [address] [address] Jasmine Pak Creatinine [Mass/Vol] 1.01 mg/dL Normal 0.70-1.30 [facility] Comment on above: Performed By: #### L IPID, URIC, BNP, CMP, T7, TSH #### [facility] [address] [address] [address] Jasmine Pak EGFR-AF SAMMARINESE >60 Normal >=60 [facility] Comment on above: Performed By: #### L IPID, URIC, BNP, CMP, T7, TSH #### [facility] [address] [address] [address] Jasmien Pak EGFR-NON AF SAMMARINESE >60 Normal >=60 [facility] Comment on above: Performed By: #### L IPID, URIC, BNP, CMP, T7, TSH #### [facility] [address] [address] [address] Jasmine Pak Globulin (S) [Mass/Vol] 2.6 g/dL Normal [facility] Comment on above: Performed By: #### L IPID, URIC, BNP, CMP, T7, TSH #### [facility] [address] [address] [address] Jasmine Pak Glucose [Mass/Vol] 139 mg/dL Critically high 74-106 [facility] Comment on above: Performed By: #### L IPID, URIC, BNP, CMP, T7, TSH #### [facility] [address] [place] [address] Dr. Jasmine Pak Potassium [Moles/Vol] 4.0 mmol/L Normal 3.5-5.1 [facility] Comment on above: Performed By: #### L IPID, URIC, BNP, CMP, T7, TSH #### [facility] [address] [place] [address] Dr. Jasmine Pak Protein [Mass/Vol] 6.2 g/dL Critically low 6.4-8.2 [facility] Comment on above: Performed By: #### L IPID, URIC, BNP, CMP, T7, TSH #### [facility] [address] [place] [address] Dr. Jasmine Pak Sodium [Moles/Vol] 142 mmol/L Normal 136-145 [facility] Comment on above: Performed By: #### L IPID, URIC, BNP, CMP, T7, TSH #### [facility] [address] [place] [address] Dr. Jasmine Pak Urea nitrogen [Mass/Vol] 16.0 mg/dL Normal 7.0-18.0 [facility] Comment on above: Performed By: #### L IPID, URIC, BNP, CMP, T7, TSH #### [facility] [address] [place] [address] Dr. Jasmine Pak Urea nitrogen/Creatinine [Mass ratio] 15.8 mg/mg Normal [facility] Comment on above: Performed By: #### L IPID, URIC, BNP, CMP, T7, TSH #### [facility] [address] [place] [address] Dr. Jasmine Pak TSHon 10-13-2021 TSH 3.543 uIU/mL Normal 0.358-3.740 [facility] Comment on above: Performed By: #### L IPID, URIC, BNP, CMP, T7, TSH #### [facility] [address] [place] [address] Dr. Jasmine Pak URIC ACID SERUMon 10-13-2021 Urate [Mass/Vol] 3.6 mg/dL Normal 3.5-7.2 [facility] Comment on above: Performed By: #### L IPID, URIC, BNP, CMP, T7, TSH #### [facility] [address] [address] [address] Jasmine Pak Encounters Encounter Date Encounter Type Care Provider Facility Start: 11-17-2023 End: 11-17-2023 ambulatory MD Silver Flynn Work Phone: [facility] Work Phone: Start: 11-17-2023 End: 11-17-2023 Departed Referred MD Silver Flynn Work Phone: [facility] [place] Work Phone: Start: 10-18-2023 End: 10-18-2023 ambulatory MD Silver Flynn Work Phone: [facility] Work Phone: Start: 10-18-2023 End: 10-18-2023 Departed Referred MD Silver Flynn Work Phone: [facility] [place] Work Phone: Start: 10-13-2021 End: 10-14-[address] SILVER FLYNN Facility:[facility] Start: 10-09-[address] SILVER FLYNN Facility :[facility] Procedures Date Procedure Procedure Detail Performing Clinician Start: 10-13-[address] MERLYN FLYNN Comment on above: Performed By: #### P [facility] #### [facility] [address] [address] [address] Jasmine Pak Immunizations Immunization Date Immunization Notes Care Provider Fa cility 03-26-2021 COVID-19 mRNA-1273 (Moderna) MD Silver Flynn Work Phone: [facility] 07-04-2020 COVID-19 mRNA-1273 (Moderna) MD Silver Flynn Work Phone: [facility] 06-07-2020 COVID-19 mRNA-1273 (Moderna) MD Silver Flynn Work Phone: [facility] Payers Date Payer Category Payer Unknown [id number] 1960 Medicare [id number] 1960 Self-pay 1960 Unknown [id number] 1945 Unknown [id number] [id number] 1945 Unknown [id number] [id number] [id number] Unknown [employer] [id number] Unknown [id number] 2.16.8 [id number] Unknown [id number] Social History Date Type Detail Facility Tobacco smoking stat [facility] Unknown if ever smoked [facility] Work Phone: Start: 1945 Sex Assigned At Male F [facility] Evaluation note Note Date & Type Note Facility Evaluation note No assessment information availa ble [facility] Work Phone: Summary Purpose Family History No Family History Records FoundNo Family History Records Found Advance Directives No Advanced Directives Records Found Advance Directive Response Recorded Date/ Time Advance Directives No May 5:32pm Chief Complaint and Reason for Visit Chief Complaint D49.2 Additional Source Comments (unrecognized sect ion and content) No Status Records FoundNo Status Records Found INFORMATION SOURCE (unrecogn ized section and content) DATE CREATED AUTHOR 10/15/2021 [facility] DATE CREATED AUTHOR AUTHOR'S ORGANIZ ATION 06/17/2024 [facility] Care Teams (unrecognized sec tion and content) Team Status: Active Member Role Status Dates Silver Flynn MD Primary Care Provider Active Team Status: Inactive Member Role Status Dates Silver Flynn MD Primary Care Provider Active Start: October 18, 2023 End: October 18, 2023 Tylor Matos MD Attending Provider Active Start: October 18, 2023 End: October 18, 2023 Team Status: Inactive Member Role Status Dates Tylor Matos MD Attending Provider Active Start: November 17, 2023 End: November 17, 2023 Goals (unrecognized section and content) Goals may be documented in a n alternate sectionGoals may be documented in an alternate section FOR RECORDS PERTAINING TO PATIENTS WHO ARE OR HAVE BEEN ENROLLED IN A CHEMICAL DEPENDENCY/SUBSTANCEABUSE PROGRAM, SOME INFORMATION MAY BE OMITTED. This clinical summary was aggregated from multiple sources. Caution should be exercised in using it in the provision of clinical care. This summary normalizes information from multiple sources, and as a consequence, information in this document may materially change the coding, format and clinical context of patient data. In addition, data may be omitted in some cases. CLINICAL DECISIONS SHOULD BE BASED ON THE PRIMARY CLINICAL RECORDS. [facility] [facility] provides no warranty or guarantee of the accuracy or completeness of information in this document.
--- OUTSIDE RECORDS SUMMARY | 2024-11-03 07:10 | XMS_ITS | Patient Health Record ---
Author Organization [facility] in [place] Address [address] [place] [address] Care Team Providers Care Security Administrator Name Role Phone Brenden Christianson Primary Care Provider Allergies No Known Allergies Results Component Value Reference Range Notes CA echo doppler complete Reviewed date:05/30/2024 06:52:21 PM Interpretation: Performing Lab: Notes/Report: Source Facility: [place] [address] Cardiology Report Signed Patient: DAWSON CAIN MR#: [id number] : 1945 Acct:[id number] Age/Sex: 78 / M ADM Date: 05/30/24 Loc: LAB Attending Dr: Silver Christianson M.D. Ordering Physician: Silver Christianson M.D. Date of Service: 05/30/24 Procedure(s): CA echo doppler complete Accession Number(s): [id number] cc: Silver Christianson M.D. Patient Name: DAWSON CAIN MR#: [id number] : 1945 Exam Date: 05/30/2024 Ordering Doctor: DR Silver Christianson . ECHOCARDIOGRAM REPORT PROCEDURE: CA ECHO DOPPLER COMPLETE INDICATIONS: Vision loss COMPARISON: None. DESCRIPTION: COMPLETE ECHOCARDIOGRAM Real-time transthoracic echocardiography with 2D, M-mode, spectral and color flow Doppler performed. QUALITY: Technical quality was good. LEFT VENTRICLE: Normal chamber size. Mild concentric left ventricular hypertrophy. Global left ventricular systolic function is normal. LV EF: Visual estimation of left ventricular ejection fraction is 65-70%. DIASTOLIC: Normal diastolic function. ATRIAL SEPTUM: LEFT ATRIUM: Mild dilatation. RIGHT ATRIUM: Mild dilatation. RIGHT VENTRICLE: Normal chamber size. Normal right ventricular systolic function. TRICUSPID VALVE: Normal mobility and thickness. No stenosis with mild regurgitation. Mild pulmonary hypertension. RVSP 42 mmHg MITRAL VALVE: Normal mobility and thickness. No evidence of mitral valve stenosis. There is no mitral annular calcification. Trivial mitral regurgitation. AORTIC VALVE: Normal trileaflet appearance. Mildly calcified left coronary cusp of the aortic valve. Normal leaflet mobility. No evidence of aortic valve stenosis. Trivial aortic regurgitation. AORTIC ROOT: Normal diameter and appearance. PULMONIC VALVE: Normal thickness and mobility. No stenosis. Trivial regurgitation. PERICARDIUM: No evidence of pericardial effusion. IVC: Collapses with inspirations. Normal size. PLEURA: CONCLUSION: 1. Mild concentric left ventricular hypertrophy with normal systolic function. LVEF is estimated at 65-70%. 2. Normal right ventricular size and systolic function. 3. Normal diastolic function. 4. Mild biatrial dilatation. 5. Mild tricuspid regurgitation. 6. Mildly elevated right-sided pressures. 7. If cardiac source of embolism is suspected then a transesophageal echocardiogram is a better test for evaluation. Adult Echocardiography Procedure Report Left Ventricle LVEDD (3.7 - 5.6 cm): 4.71 cm LVESD (2.2 - 4.0 cm): 3.06 cm LVIVS thickness (0.6 - 1.2 cm): 1.30 cm LVPW thickness (0.5 - 1.0 cm): 1.21 cm e': 0.10 m/s E - e': 8.91 LVOT Max Gradient: 5.81 mm[Hg], 5.98 mm[Hg] LVOT Area (cm2): 1.21 m/s Peak Velocity (LVOT): 1.20 m/s, 1.22 m/s Mean Velocity (LVOT): 0.77 m/s LVOT Diameter 2.15 cm Left Ventricular Ejection Fraction: 65-70 % Left Atrium LA Volume Index (2D A2C): 39.96 ml/m2 Left Atrium Systolic Dimension: 4.22 cm Mitral Valve MV E to A Ratio: 0.94 Mitral Valve A-Wave Peak Velocity: 0.96 m/s Mitral Valve E-Wave Peak Velocity: 0.90 m/s Right Ventricle RV Internal Diastolic Dimension: 3.58 cm Aorta AO Root Diam: 3.60 cm Ascending Ao Diam: 2.85 cm Aortic Valve AoV Area (Peak Zana): 2.51 cm2, 2.49 cm2 AoV Area (VTI): 2.36 cm2, 2.39 cm2 Peak Velocity(Antegrade Flow): 1.75 m/s Peak Gradient(Antegrade Flow): 12.30 mm[Hg] Mean Velocity(Antegrade Flow): 1.11 m/s Mean Gradient(Antegrade Flow): 5.81 mm[Hg] Velocity Time Integral: 40.90 cm Tricuspid Valve Peak Velocity (Regurgitant Flow): 2.55 m/s, 3.13 m/s, 2.93 m/s Pulmonic Valve Mean Gradient: 3.53 mm[Hg], 3.42 mm[Hg] Mean Velocity: 0.87 m/s, 0.86 m/s Peak Velocity: 1.37 m/s Peak Gradient: 7.50 mm[Hg], 7.50 mm[Hg] Right Atrium Right Atrium Systolic Pressure: 49.73 ml, 49.73 ml Dictated by: Zion Ortiz M.D. on 05/30/2024 at 17:46 Approved by: Zion Ortiz M.D. on 05/30/2024 at 18:44 Dictated By: ZION ORTIZ Signed By: 05/30/241844 DD/ 43 TD/TT: [employer]: [place] [address] Cardiology Report Signed Patient: JESSI CAIN RL R MR#: [id number] : 1945 Acct:[id number] Age/Sex: 78 / M ADM Date: 05/30/24 Loc: LAB Attending Dr: Rambo Christianson M.D. Ordering Physician: Silver Christianson M.D. Date of Service: 05/30/24 Procedure(s): CA ech o doppler complete Accession Number(s): [id number] cc: Silver Christianson M.D. Patient Name: DAWSON CAIN MR#: [id number] : 1945 Exam Date: 05/30/2024 Ordering Doctor: DR Silver Christianson . ECHOCARDIOGRAM REPORT PROCEDURE: CA ECHO DOPPLER COMPLETE INDICATIONS: Vision loss COMPARISON: None. DESCRIPTION: COMPLET E ECHOCARDIOGRAM Real-time transthoracic echocardiography wit h 2D, M-mode, spectral and color flow Doppler performed. QUALITY: Technical quality was good. LEFT VENTRICLE: Norm al chamber size. Mild concentric left ventricular hypertrophy. Global left ventricular systolic function is normal. LV EF: Visual estima tion of left ventricular ejection fraction is 65-70%. DIASTOLIC: Normal diastolic function. ATRIAL SEPTUM: LEFT ATRIUM: Mild dilatation. RIGHT ATRIUM: Mild dilatation. RIGHT VENTRICLE: Nor mal chamber size. Normal right ventricular systolic function. TRICUSPID VALVE: Nor mal mobility and thickness. No stenosis with mild regurgitation. Mild pulmonary hypertension. RVSP 42 mmHg MITRAL VALVE: Normal mobility and thickness. No evidence of mitral valve stenosis. There is n o mitral annular calcification. Trivial mitral regurgitation. AORTIC VALVE: Normal trileaflet appearance. Mildly calcified left coronary cusp of the aortic v alve. Normal leaflet mobility. No evidence of aortic valve stenosis. Triv ial aortic regurgitation. AORTIC ROOT: Normal diameter and appearance. PULMONIC VALVE: Norm al thickness and mobility. No stenosis. Trivial regurgitation. PERICARDIUM: No evid ence of pericardial effusion. IVC: Collapses with inspirations. Normal size. PLEURA: CONCLUSION: 1. Mild concentric l eft ventricular hypertrophy with normal systolic function. LVEF is estimated at 65-70%. 2. Normal right ventricular size and systolic function. 3. Normal diastolic function. 4. Mild biatrial dilatation. 5. Mild tricuspid regurgitation. 6. Mildly elevated right-sided pressures. 7. If cardiac source of embolism is suspected then a transesophageal echocardiogram is a better test for evaluation. Adult Echocardiograp hy Procedure Report Left Ventricle LVEDD (3.7 - 5.6 cm) : 4.71 cm LVESD (2.2 - 4.0 cm) : 3.06 cm LVIVS thickness (0.6 - 1.2 cm): 1.30 cm LVPW thickness (0.5 - 1.0 cm): 1.21 cm e': 0.10 m/s E - e': 8.91 LVOT Max Gradient: 5 .81 mm[Hg], 5.98 mm[Hg] LVOT Area (cm2): 1.21 m/s Peak Velocity (LVOT) : 1.20 m/s, 1.22 m/s Mean Velocity (LVOT) : 0.77 m/s LVOT Diameter 2.15 cm Left Ventricular Eje ction Fraction: 65-70 % Left Atrium LA Volume Index (2D A2C): 39.96 ml/m2 Left Atrium Systolic Dimension: 4.22 cm Mitral Valve MV E to A Ratio: 0.94 Mitral Valve A-Wave Peak Velocity: 0.96 m/s Mitral Valve E-Wave Peak Velocity: 0.90 m/s Right Ventricle RV Internal Diastoli c Dimension: 3.58 cm Aorta AO Root Diam: 3.60 cm Ascending Ao Diam: 2 .85 cm Aortic Valve AoV Area (Peak Zana): 2.51 cm2, 2.49 cm2 AoV Area (VTI): 2.36 cm2, 2.39 cm2 Peak Velocity(Antegr huyen Flow): 1.75 m/s Peak Gradient(Antegr huyen Flow): 12.30 mm[Hg] Mean Velocity(Antegr huyen Flow): 1.11 m/s Mean Gradient(Antegr huyen Flow): 5.81 mm[Hg] Velocity Time Integr al: 40.90 cm Tricuspid Valve Peak Velocity (Regurgitant Flow): 2.55 m/s, 3.13 m/s, 2.93 m/s Pulmonic Valve Mean Gradient: 3.53 mm[Hg], 3.42 mm[Hg] Mean Velocity: 0.87 m/s, 0.86 m/s Peak Velocity: 1.37 m/s Peak Gradient: 7.50 mm[Hg], 7.50 mm[Hg] Right Atrium Right Atrium Systoli c Pressure: 49.73 ml, 49.73 ml Dictated by: Zion Ortiz M.D. on 05/30/2024 at 17:46 Approved by: Zion Ortiz M.D. on 05/30/2024 at 18:44 Dictated By: ZION ORTIZ Signed By: 05/30/241844 DD/ 43 TD/TT: [employer]: CREATININE Reviewed date:05/30/2024 02:18:01 PM Interpretation: Performing Lab: Notes/Report: [facility] , Creatinine 0.95 0.70-1.30 mg/dL Estimated GFR ( Rosanne >60 >=60 mL/min/1.73m 2 Estimated GFR (Non- Yola >60 >=60 mL/min/1.73m 2 Performing Lab: see note ML - [facility] LB CT angio head Reviewed date:05/30/2024 06:52:21 PM Interpretation: Performing Lab: Notes/Report: Source Facility: [place] [address] CT Scan Report Signed Patient: DAWSON CAIN MR#: [id number] : 1945 Acct:[id number] Age/Sex: 78 / M ADM Date: 05/30/24 Loc: LAB Attending Dr: Silver Christianson M.D. Ordering Physician: Silver Christianson M.D. Date of Service: 05/30/24 Procedure(s): CT angio head Accession Number(s): [id number] cc: Silver Christianson M.D. [place] [address] Patient Name: DAWSON CAIN MRN: [id number] date: 1945 Sex: M Assigned Patient Location: LAB Current Patient Location: LAB Accession/Order Number: [id number] Exam Date: 05/30/2024 13:40 Report Date: 05/30/2024 14:59 At the request of: SILVER CHRISTIANSON Procedure: CT angio head EXAM: CT angiogram of the head and neck using 100 mL of IV iodinated contrast. 3D images were generated on an independent workstation for better evaluation of the vasculature. NASCET criteria were used when evaluating the carotid arteries. Dose reduction technique used: Automated exposure control and/or adjustment of the mA and/or kV according to patient size and/or use of iterative reconstruction technique. REASON FOR EXAM: Vison Loss COMPARISON: None FINDINGS: CTA: No large vessel occlusion. No significant intracranial arterial stenoses. No arterial dissections. No intracranial aneurysms. Patent dural venous sinuses. Bilateral common carotid, bilateral internal carotid and bilateral vertebral arteries are patent without significant stenosis, aneurysm or dissection in the neck. Probable carotid bifurcation atherosclerotic plaque without significant associated stenosis. NON-VASCULAR: No mass effect or midline shift. No hydrocephalus. Paranasal sinuses and mastoid air cells are clear. Remainder unremarkable. CT/CT angio head IMPRESSION: No acute arterial abnormalities in the head or neck. Electronically authenticated by: MADELEINE HARRISON Date: 05/30/2024 14:59 Dictated By: Madeleine Harrison M.D. Signed By: 05/30/24 7247 DD/ 5143 TD/TT: [employer] System: [place] [address] CT Scan Report Signed Patient: JESSI CAIN MR#: [id number] : 1945 Acct:[id number] Age/Sex: 78 / M ADM Date: 05/30/24 Loc: LAB Attending Dr: Rambo Christianson M.D. Ordering Physician: Silver Christianson M.D. Date of Service: 05/30/24 Procedure(s): CT ang io head Accession Number(s): [id number] cc: Silver Christianson M.D. [place] [address] Patient Name: DAWSON CAIN MRN: [id number] date: 1945 Sex: M Assigned Patient Location: LAB Current Patient Loca tion: LAB Accession/Order Numb er: [id number] Exam Date: 05/30/2024 13:40 Report Date: 05/30/2024 14:59 At the request of: SILVER CHRISTIANSON Procedure: CT angio head EXAM: CT angiogram o f the head and neck using 100 mL of IV iodinated contrast. 3D images were gener ated on an independent workstation for better evaluation of the vasculature. JOSE CET criteria were used when evaluating the carotid arteries. Dose reduc tion technique used: Automated exposure control and/or adjustment of the mA and/or kV according to patient size and/or use of iterative reconstruc tion technique. REASON FOR EXAM: Vis on Loss COMPARISON: None FINDINGS: CTA: No large vessel occlusion. No significant intracranial arterial stenoses. No arterial dissections . No intracranial aneurysms. Patent dural venous sinuses. Bilateral common car otid, bilateral internal carotid and bilateral vertebral arteries are patent without significant stenosis, aneurysm or dissection in the neck. Probable carot id bifurcation atherosclerotic plaque without significant associated stenosis. NON-VASCULAR: No mass effect or mi dline shift. No hydrocephalus. Paranasal sinuses and mastoid air cells ar e clear. Remainder unremarkable. C T/CT angio head IMPRESSION: No acute arterial abnormalities in the head or neck. Electronically authenticated by: MADELEINE HARRISON Date: 05/30/2024 14:59 Dictated By: Nicola Harrison M.D. Signed By: 05/30/24 1505 DD/ 1988 TD/TT: [employer]: CT angio neck Reviewed date:05/30/2024 06:52:21 PM Interpretation: Performing Lab: Notes/Report: Source Facility: [place] [address] CT Scan Report Signed Patient: DAWSON CAIN MR#: [id number] : 1945 Acct:[id number] Age/Sex: 78 / M ADM Date: 05/30/24 Loc: LAB Attending Dr: Silver Christianson M.D. Ordering Physician: Silver Christianson M.D. Date of Service: 05/30/24 Procedure(s): CT angio neck Accession Number(s): [id number] cc: Silver Christianson M.D. [place] [address] Patient Name: DAWSON CAIN MRN: [id number] date: 1945 Sex: M Assigned Patient Location: LAB Current Patient Location: LAB Accession/Order Number: [id number] Exam Date: 05/30/2024 13:40 Report Date: 05/30/2024 14:59 At the request of: SILVER CHRISTIANSON Procedure: CT angio neck EXAM: CT angiogram of the head and neck using 100 mL of IV iodinated contrast. 3D images were generated on an independent workstation for better evaluation of the vasculature. NASCET criteria were used when evaluating the carotid arteries. Dose reduction technique used: Automated exposure control and/or adjustment of the mA and/or kV according to patient size and/or use of iterative reconstruction technique. REASON FOR EXAM: Vison Loss COMPARISON: None FINDINGS: CTA: No large vessel occlusion. No significant intracranial arterial stenoses. No arterial dissections. No intracranial aneurysms. Patent dural venous sinuses. Bilateral common carotid, bilateral internal carotid and bilateral vertebral arteries are patent without significant stenosis, aneurysm or dissection in the neck. Probable carotid bifurcation atherosclerotic plaque without significant associated stenosis. NON-VASCULAR: No mass effect or midline shift. No hydrocephalus. Paranasal sinuses and mastoid air cells are clear. Remainder unremarkable. CT/CT angio neck IMPRESSION: No acute arterial abnormalities in the head or neck. Electronically authenticated by: MADELEINE HARRISON Date: 05/30/2024 14:59 Dictated By: Madeleine Harrison M.D. Signed By: 05/30/24 1509 DD/ 2282 TD/TT: [employer]: [place] [address] CT Scan Report Signed Patient: JESSI CAIN MR#: [id number] : 1945 Acct:[id number] Age/Sex: 78 / M ADM Date: 05/30/24 Loc: LAB Attending Dr: Rambo Christianson M.D. Ordering Physician: Silver Christianson M.D. Date of Service: 05/30/24 Procedure(s): CT ang io neck Accession Number(s): [id number] cc: Silver Christianson M.D. [place] [address] Patient Name: DAWSON CAIN MRN: [id number] date: 1945 Sex: M Assigned Patient Location: LAB Current Patient Loca tion: LAB Accession/Order Numb er: [id number] Exam Date: 05/30/2024 13:40 Report Date: 05/30/2024 14:59 At the request of: SILVER CHRISTIANSON Procedure: CT angio neck EXAM: CT angiogram o f the head and neck using 100 mL of IV iodinated contrast. 3D images were gener ated on an independent workstation for better evaluation of the vasculature. JOSE CET criteria were used when evaluating the carotid arteries. Dose reduc tion technique used: Automated exposure control and/or adjustment of the mA and/or kV according to patient size and/or use of iterative reconstruc tion technique. REASON FOR EXAM: Vis on Loss COMPARISON: None FINDINGS: CTA: No large vessel occlusion. No significant intracranial arterial stenoses. No arterial dissections . No intracranial aneurysms. Patent dural venous sinuses. Bilateral common car otid, bilateral internal carotid and bilateral vertebral arteries are patent without significant stenosis, aneurysm or dissection in the neck. Probable carot id bifurcation atherosclerotic plaque without significant associated stenosis. NON-VASCULAR: No mass effect or mi dline shift. No hydrocephalus. Paranasal sinuses and mastoid air cells ar e clear. Remainder unremarkable. C T/CT angio neck IMPRESSION: No acute arterial abnormalities in the head or neck. Electronically authenticated by: MADELEINE HARRISON Date: 05/30/2024 14:59 Dictated By: Nicola Harrison M.D. Signed By: 05/30/24 1505 DD/ 1459 TD/TT: [employer]: Reason For Referral No Information Medications Medication SIG (Take, Route, Frequency, Duration) Notes Start Date End Date Status Atorvastatin Calcium 20 MG Take 1 tablet [...] a day for 5 days 11/01/2024 Active Pantoprazole Sodium 40 MG 1 tablet 1/2 t o 1 hour before morning meal Orally Once a day for 90 days Active Pioglitazone HCl 45 MG Take 1 tablet by mouth once daily for 90 Active Accu-Chek Mary Plus - as directed In Vitro Active traZODone HCl 50 MG Take 1 tablet by sonal th twice daily for 90 Active amLODIPine Besylate 5 MG Take 1 tablet b y mouth once daily for 90 Active Viagra 100 MG 1 tablet as needed O rally Once a day for 90 days Active Social History Tobacco Use: Social History Observation Description Date Details (start date - stop date) Never Smoker NA - NA Tobacco Use/Smoking Question Answer Notes Patient is a nonsmoker Problems Problem Type SNOMED Code ICD Code Onset Dates Problem Status W/U Status Risk Notes Problem History of fall (106795663) History of falling (Z91.81) Active confirmed Problem Hyperlipidemia (06773060) Hyperlipidemia (E78.5) Active confirmed Problem Hypertension (83347694) Hypertension (I10) Active confirmed Problem Well adult (472383064) Well adult (Z00.00) Active confirmed Problem Sciatica (83188998) Sciatic leg pain (M54.30) Active confirmed Problem Right upper quadrant pain (383087086) Abdominal pain, RUQ (R10.11) Active confirmed Problem 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) Active confirmed Problem Carcinoma of prostate (275555695) Carcinoma of prostate (C61) Active confirmed Problem Diabetes mellitus type II (66562323) Diabetes mellitus, type II (E11.9) Active confirmed Problem Benign prostatic hypertrophy without outflow obstruction (732778315) Benign hypertrophy of prostate (N40.0) Active confirmed Vital Signs Temperature 99.1 degrees Fahrenheit 08/21/2024 Blood pressure diastolic 82 mm Hg 11/01/2024 Height 69 in 11/01/2024 Blood pressure systolic 152 mm Hg 11/01/2024 Weight 172.0 lbs 11/01/2024 BMI 25.4 kg/m2 11/01/2024 Procedures Procedure Date Ordered Date Performed Result Body Sit e CARDIO Echocardiogram 05/24/2024 N/A Encounters Encounter Location Date Provider Diagnosis [place] [address] [place] [address] 05/24/2024 Brenden Hoy Vision loss H54.7 [facility] [address] [place] [address] 08/21/2024 Brenden Hoy Acute non-recurrent sinusitis, unspecified location J01.90 and Nasal congestion R09.81 [facility] [address] [place] [address] 11/01/2024 Brenden Hoy Sciatic leg pain M54 .30 ; Hyperlipidemia E78.5 ; Hypertension I10 ; Carcinoma of prostate C61 and Diabetes mellitus, type II E11.9 [facility] [address] [place] [address] 12/16/2023 Brenden Hoy Diabetes mellitus, t ype II E11.9 [facility] [address] [facility] [place] [address] 03/02/2024 Brenden Hoy Diabetes mellitus, t ype II E11.9 [facility] [address] [place] [facility] [place] [address] 03/10/2024 Brenden Hoy Diabetes mellitus, t ype II E11.9 [facility] [address] [place] [facility] [place] [address] 03/13/2024 Brenden Hoy Diabetes mellitus, t ype II E11.9 [facility] [address] [place] [facility] [place] [address] 05/16/2024 Brenden Hoy Diabetes mellitus, [facility] II E11.9 [facility] [address] [place] [facility] [place] [address] 05/30/2024 Brenden Hoy Assessments Encounter Date Diagnosis (ICD Code) Assessment Notes Treatment Notes Treatment Clinical Notes Section Notes 11/01/2024 Sciatic leg pain (ICD-10 - M54.30) 11/01/2024 Hyperlipidemia (ICD-10 - E78.5) 11/01/2024 Hypertension (ICD-10 - I10) 11/01/2024 Carcinoma of prostate (ICD-10 - C61) 11/01/2024 Diabetes mellitus, type II (ICD-10 - E11.9) 12/16/2023 Diabetes mellitus, type II (ICD-10 - E11.9) 03/02/2024 Diabetes mellitus, type II (ICD-10 - E11.9) 03/10/2024 Diabetes mellitus, type II (ICD-10 - E11.9) 03/13/2024 Diabetes mellitus, type II (ICD-10 - E11.9) 05/16/2024 Diabetes mellitus, type II (ICD-10 - E11.9) 05/24/2024 Vision loss (ICD-10 - H54.7) 08/21/2024 Acute non-recurrent sinusitis, unspecified location (ICD-10 - J01.90) Rest and drink more liquids, especially water. You may use a humidifier or vaporizer to help keep the drainage moist. Htzd-isx-rsjnjnv Nasal Saline may help the stuffy and runny nose. Use Ibuprofen and or Tylenol as needed for fever, chills, body aches or pain. Children 5 years old should not be given sgou-wxj-jetfndp cough and cold medications such as guaifenesin and dextromethorphan. If you're over age 5, you may try ymdi-imw-zcusnbg cold medications such as guaifenesin and dextromethorphan, [...] congestion (ICD-10 - R09.81) Plan Of Treatment Pending Test Test Name Order Date CMP (COMPLETE METABOLIC PANEL) 3 CMP (COMPLETE METABOLIC PANEL) 4 HEMOGLOBIN A1C (GLYCO) 09/24/2023 HEMOGLOBIN A1C (GLYCO) 11/01/2024 HEMOGLOBIN A1C (GLYCO) 09/23/2022 LIPID PANEL (CHOL/TRIG/HDL/LDL) 09/24/19 23 LIPID PANEL (CHOL/TRIG/HDL/LDL) 09/24/19 24 LIPID PANEL (CHOL/TRIG/HDL/LDL) 11/02/19 25 CBC WITH DIFF 09/24/2023 CBC WITH DIFF 09/23/2022 URIC ACID 11/01/2024 CARDIO Echocardiogram 05/24/2024 PSA-FREE AND TOTAL 11/01/2024 PSA-FREE AND TOTAL 09/24/2023 PSA-FREE AND TOTAL 09/23/2022 STOOL OCCULT BLOOD 09/23/2022 STOOL OCCULT BLOOD 09/24/2023 THYROID PANEL (T4/TSH/FREE T3) 4 THYROID PANEL (T4/TSH/FREE T3) 5 THYROID PANEL (T4/TSH/FREE T3) 3 CMP (COMP MET MELGAR) w/eGFR CKD-EPI 2024 CBC WITH DIFF 11/01/2024 Insurance Providers Payer Name Payer Address Payer Phone Subscriber Number Group Number Insured Name Patient Relationship to Insured Coverage Start Date Coverage End Date MEDIC[place] [address] [place] [address] [id number] Ant Dawson Self - patient is the insured [employer] [address] [place] [address] [id number] Dawson Cain Self - patient is the insured Medications Administered Medication Instructions Date of Administration Dosage Notes Triamcinolone 40 mg/ml 11/01/2024 80 mg Medical (General) History Medical History History ICD Code Abdominal pain, RUQ R10.11 History of falling Z91.81 Well adult Z00.00 Hypertension I10 Diabetes mellitus, type II E11.9 Hyperlipidemia E78.5 Benign hypertrophy of prostate N40.0 Carcinoma of prostate C61 Rectal bleeding K62.5 Kidney stones N20.0 Surgical History Surgery Date(Month/Year) Seed Implant for Prostate Cancer 2004 All teeth pulled shave biopsy right scalp
[2024-11-03 07:56] LABS: Hematocrit 38.7 % (42.0-54.0); Hemoglobin 13.3 g/dL (14.0-18.0); Immature Granulocytes Abs Auto 0.01 10^3/uL (0.00-0.03); Immature Granulocytes Pct Auto 0.1 % (0.0-0.5); Lymphocytes Absolute Auto 1.4 10^3/uL (1.2-3.8); Mean Corpuscular HGB Conc 34.4 g/dL (29.9-35.2); Mean Corpuscular Hemoglobin 36.2 pg (25.9-34.0); Mean Corpuscular Volume 105.4 fL (80.0-94.0); Platelet Count 318 10^3/uL (150-450); Red Blood Count 3.67 10^6/uL (4.70-6.10); White Blood Count 6.8 10^3/uL (4.0-11.0)
[2024-11-03 08:49] LABS: Alanine Aminotransferase 18 U/L (16-63); Albumin Globulin Ratio 1.5; Albumin Level 3.8 g/dL (3.4-5.0); Alkaline Phosphatase 64 U/L (46-116); Anion Gap 11.5; Aspartate Amino Transferase 12 U/L (15-37); Blood Urea Nitrogen 27.0 mg/dL (7.0-18.0); Calcium 8.6 mg/dL (8.5-10.1); Carbon Dioxide 31.3 mmol/L (21.0-32.0); Chloride 105 mmol/L (98-107); Cholesterol 161 mg/dL (<=200); Estimated GFR (African America >60 (>=60 mL/min/1.73m^2); Estimated GFR (Non-African Ame >60 (>=60 mL/min/1.73m^2); Free T3 1.86 pg/mL (2.18-3.98); Globulin 2.6 g/dL; Glucose 169 mg/dL (74-106); HDL Cholesterol 78 mg/dL (40-60); Potassium 3.8 mmol/L (3.5-5.1); Sodium 144 mmol/L (136-145); Thyroid Stimulating Hormone 1.863 uIU/mL (0.358-3.740); Total Protein 6.4 g/dL (6.4-8.2); Triglycerides 80 mg/dL (<=150); Uric Acid 3.6 mg/dL (3.5-7.2); VLDL CHOLESTEROL 16.0 mg/dL
[2024-11-04 04:09] LABS: PSA, Free <0.02 ng/mL
== END 2024-11-03 07:05 | disposition home or self-care (01) ==
LOC: LAB 07:08
PROVIDERS: PCP Family Medicine; Visit Provider Family Medicine
DX: E78.5 Hyperlipidemia, unspecified (principal); R73.09 Other abnormal glucose; R53.83 Other fatigue; M25.50 Pain in unspecified joint; C61 Malignant neoplasm of prostate
CPT/HCPCS: 36415; 80053; 80061; 83036; 84153; 84154; 84436; 84443; 84481; 84550; 85025

== ENCOUNTER 2024-11-07 12:59 | Outpatient (OUT) | payer MEDICARE, BC, SELFPAY ==
--- NOTE | 2024-11-07 13:07 | XR_ITS ---
[place] [id number] Patient Name: SUHAS HAMMOND MRN: [id number] date: 1945 Sex: M Assigned Patient Location: [facility] Current Patient Location: [facility] Accession/Order Number: [id number] Exam Date: 11/07/2024 15:11 Report Date: 11/07/2024 15:12 At the request of: SILVER CHRISTIANSON MD Procedure: XR hip LT min 2V 2 views left plain film COMPARISON: None HISTORY: Left hip pain. 2 weeks duration ACUTE FINDINGS: None DEGENERATIVE CHANGE: Lateral superior bony densities. Consider prior injury. No articular collapse. No AVN. SOFT TISSUE FINDINGS: Unremarkable JOINT EFFUSION: None POSTOP CHANGES: None BONY MINERALIZATION: Adequate XR/XR hip LT min 2V IMPRESSION: Chronic lateral superior acetabular changes. Consider prior injury. Mild degeneration. Impression dictated by: Martell Fowler M.D. 11/07/2024 3:12 PM Dictation Location: [place] [address] Electronically authenticated by: [id number] Date: 11/07/2024 15:12
--- OUTSIDE RECORDS SUMMARY | 2024-11-07 13:10 | XMS_ITS | CCD ---
Author Organization [facility] Care Team Providers Care Buckle Frame Shaper Name Role Phone DR SILVER FLYNN Attending Unavailable SAMMY, DR SHEPPARD Admitting Unavailable SAMMY, DR SHEPPARD Primary Care Unavailable DR SILVER FLYNN Consulting Unavailable DR SILVER FLYNN Attending Unavailable SAMMY, DR SHEPPARD Admitting Unavailable SAMMY, DR SHEPPARD Primary Care Unavailable MD Silver Flynn Primary Care Provider [phone] MD Tylor Matos Attending Provider [phone] Tylor Matos Unavailable Tylor Matos Admjimmy Unavailable [...] Test Name Value Interpretation Reference Range Facility [facility] 11-17-2023 L Specimen: [id number] Received: 11/17/23 Status: PANCHO Mora Num: [id number] Spec Type: Surgical Subm Dr: Tylor Matos MD Tissues: A Skin-Other than Cyst, tag, debridement or plastic repair (RT FOREHEAD) Procedures: MELY/Nikolai, Gross/Micro L4 Age/ Patient Sex Location Account Attending Physician Dawson Cian Jr 78/M [place] [id number] Tylor Matos MD SPEC NUM: [id number] RECD: 11/17/23 STATUS: PANCHO MORA NUM: [id number] ASHVIN: 11/17/[address]: Tylor Matos MD ENTERED: 11/17/[address] [facility] [address]: SPEC TYPE: Surgical DEPT: S [...] tips A2-A4: 12:00 to 6:00 region Specimen: [id number] Received: 11/17/23 Status: PANCHO Mora Num: [id number] Spec Type: Surgical Subm Dr: Tylor Matos MD Tissues: A Skin-Other than Cyst, tag, debridement or plastic repair (RT FOREHEAD) Procedures: JUAN, Lani/Mariely L4 Patient: Dawson Cain Jr [id number] (Continued) Specimen: [id number] Received: 11/17/23 (Continued) Signed (signature on file) Silvestre Phillips Jr., MD 11/21/23 2924 Specimen: [id number] Received: 11/17/23 Status: PANCHO Mora Num: [id number] Spec Type: Surgical Subm Dr: Tylor Matos MD Tissues: A Skin-Other than Cyst, tag, debridement or plastic repair (RT FOREHEAD) Procedures: MELYLani Menchaca/Mariely L4 Patient: Dawson Cain Jr [id number] (Continued) Specimen: [id number] Received: 11/17/23 (Continued) CPT Codes 16000 Specimen: [id number] Received: 11/17/23 Status: PANCHO Mora Num: [id number] Spec Type: Surgical Subm Dr: Tylor Matos MD Tissues: A Skin-Other than Cyst, tag, debridement or plastic repair (RT FOREHEAD) Procedures: Nikolai, Gross/Micro L4 Patient: Dawson Cain Jr [id number] (Continued) Signed (signature on file) Silvestre Phillips Jr., MD 11/21/231204 [facility] [place] 10-18-2023 L Specimen: [id number] Received: 10/19/23 Status: PANCHO Mora Num: [id number] Spec Type: Surgical Subm Dr: Tylor Matos MD Tissues: A Skin-Other than Cyst, tag, debridement or plastic repair (RT SCALP) Procedures: HE, Gross/Micro L4 Age/ Patient Sex Location Account Attending Physician Dawson Cain Jr 78/M [place] [id number] Tylor Matos MD SPEC NUM: [id number] RECD: 10/19/23 STATUS: RACHChristian MORA NUM: [id number] ASHVIN: 10/18/[address]: Tylor Matos MD ENTERED: 10/19/[address] [facility] [address]: SPEC TYPE: Surgical DEPT: S [...] and entirely submitted in A1. CPT Codes 49806 Specimen: [id number] Received: 10/19/23 Status: PANCHO Mora Num: [id number] Spec Type: Surgical Subm Dr: Tylor Matos MD Tissues: A Skin-Other than Cyst, tag, debridement or plastic repair (RT SCALP) Procedures: HE, Gross/Micro L4 Patient: AntDawson Jr [id number] (Continued) Signed (signature on file) Shandra Renteria MD 10/20/23 1557 Normal [facility] INSULINon 10-14-2021 Insulin 4.3 uIU/mL Normal 2.6-24.9 [facility] Comment on above: Performed By: #### I NSULIN #### [facility] [address] [place] [address] Dr. Jasmine Pak BNPon 10-13-2021 Natriuretic peptide B (Bld) [Mass/Vol] 107.0 pg/mL Normal <=1,800.0 [facility] Comment on above: Performed By: #### L IPID, URIC, BNP, CMP, T7, TSH #### [facility] [address] [place] [address] Dr. Jasmine Pak CBC AUTO DIFFon 10-13-2021 BASO # 0.1 103/ul Normal 0.0-0.1 [facility] Comment on above: Performed By: #### C BC #### [facility] [address] [place] [address] Dr. Jasmine Pak Basophils/100 WBC (Bld) 1.2 % Normal 0.2-2.0 [facility] Comment on above: Performed By: #### C BC #### [facility] [address] [place] [address] Dr. Jasmine Pak EO # 0.2 103/ul Normal 0.0-0.7 [facility] Comment on above: Performed By: #### C BC #### [facility] [address] [place] [address] Dr. Jasmine Pak Eosinophils/100 WBC (Bld) 4.6 % Normal 0.9-7.0 [facility] Comment on above: Performed By: #### C BC #### [facility] [address] [place] [address] Dr. Jasmine Pak Erythrocyte distribution width (RBC) [Ratio] 13.5 % Normal 11.0-15.0 [facility] Comment on above: Performed By: #### C BC #### [facility] [address] [place] [address] Dr. Jasmine Pak Hematocrit (Bld) [Volume fraction] 45.5 % Normal 42.0-54.0 [facility] Comment on above: Performed By: #### C BC #### [facility] [address] [place] [address] Dr. Jasmine Pak Hemoglobin (Bld) [Mass/Vol] 15.1 g/dL Normal 14.0-18.0 [facility] Comment on above: Performed By: #### C BC #### [facility] [address] [place] [address] Dr. Jasmine Pak IG # 0.01 10e3/ul Normal 0.00-0.03 [facility] Comment on above: Performed By: #### C BC #### [facility] [address] [place] [address] Dr. Jasmine Pak IG % 0.2 % Normal 0.0-0.5 [facility] Comment on above: Performed By: #### C BC #### [facility] [address] [place] [address] Dr. Jasmine Pak LYMPH # 1.7 103/ul Normal 1.2-3.8 [facility] Comment on above: Performed By: #### C BC #### [facility] [address] [place] [address] Dr. Jasmine Pak Lymphocytes/100 WBC (Bld) 35.1 % Normal 20.5-60.0 [facility] Comment on above: Performed By: #### C BC #### [facility] [address] [place] [address] Dr. Jasmine Pak MANUAL DIFF REQ NO Normal [facility] Comment on above: Performed By: #### C BC #### [facility] [address] [place] [address] Dr. Jasmine Pak MCH (RBC) [Entitic mass] 33.6 pg Normal 25.9-34.0 [facility] Comment on above: Performed By: #### C BC #### [facility] [address] [place] [address] Dr. Jasmine Pak MCHC (RBC) [Mass/Vol] 33.2 g/dL Normal 29.9-35.2 [facility] Comment on above: Performed By: #### C BC #### [facility] [address] [place] [address] Dr. Jasmine Pak MCV (RBC) [Entitic vol] 101.3 fL Critically high 80.0-94.0 [facility] Comment on above: Performed By: #### C BC #### [facility] [address] [place] [address] Dr. Jasmine Pak MONO # 0.6 103/ul Normal 0.3-0.8 [facility] Comment on above: Performed By: #### C BC #### [facility] [address] [place] [address] Dr. Jasmine Pak Monocytes/100 WBC (Bld) 12.7 % Critically high 1.7-12.0 [facility] Comment on above: Performed By: #### C BC #### [facility] [address] [place] [address] Dr. Jasmine Pak NEUT # 2.2 103/ul Normal 1.4-6.5 [facility] Comment on above: Performed By: #### C BC #### [facility] [address] [place] [address] Dr. Jasmine Pak Neutrophils/100 WBC (Bld) 46.2 % Normal 43.0-75.0 [facility] Comment on above: Performed By: #### C BC #### [facility] [address] [place] [address] Dr. Jasmine Pak Platelet mean volume (Bld) [Entitic vol] 9.9 fL Normal 9.5-13.5 [facility] Comment on above: Performed By: #### C BC #### [facility] [address] [place] [address] Dr. Jasmine Pak PLT 252 103/ul Normal 150-450 [facility] Comment on above: Performed By: #### C BC #### [facility] [address] [place] [address] Dr. Jasmine Pak RBC 4.49 106/ul Critically low 4.70-6.10 [facility] Comment on above: Performed By: #### C BC #### [facility] [address] [place] [address] Dr. Jasmine Pak WBC 4.8 103/ul Normal 4.0-11.0 [facility] Comment on above: Performed By: #### C BC #### [facility] [address] [place] [address] Dr. Jasmine Pak FREE THYROXINE INDEX T7on FTI 3.11 Normal 1.30-4.50 [facility] Comment on above: Performed By: #### L IPID, URIC, BNP, CMP, T7, TSH #### [facility] [address] [place] [address] Dr. Jasmine Pak T3U 37.0 % Normal 33.0-40.0 [facility] Comment on above: Performed By: #### L IPID, URIC, BNP, CMP, T7, TSH #### [facility] [address] [place] [address] Dr. Jasmine Pak T4 [Mass/Vol] 8.40 ug/dL Normal 4.50-12.10 [facility] Comment on above: Performed By: #### L IPID, URIC, BNP, CMP, T7, TSH #### [facility] [address] [place], [place] [address] Dr. Jasmine Pak GLYCOHEMOGLOBIN A1Con 2021 ADA RECOMMENDATION SEE BELOW Normal [facility] Comment on above: Result Comment: ADA RECOMMENDED LIMIT 4.0 - 6.0 ADA THERAPEUTIC TARGET < 7.0 ACTION SUGGESTED > 7.0 Performed By: #### A 1C #### [facility] [address] [place] [address] [address] Jasmine Pak Glucose [Mass/Vol] 154 mg/dL Normal [facility] Comment on above: Performed By: #### A 1C #### [facility] [address] [place] [address] Dr. Jasmine Pak HbA1c (Bld) [Mass fraction] 7.0 % Critically high 4.5-6.2 [facility] Comment on above: Performed By: #### A 1C #### [facility] [address] [address] [address] Jasmine Pak LIPID PROFILEon 10-13-2021 CHOL-HDL RATIO NORM SEE BELOW Normal [facility] Comment on above: Result Comment: 3.3 - 4.4 LOW RISK 4.4 - 7.1 AVERAGE RISK 7.1 - 11.0 MODERATE RISK >11.0 HIGH RISK Performed By: #### L IPID, URIC, BNP, CMP, T7, TSH #### [facility] [address] [place], [place] [address] Dr. Jasmine Pak Cholesterol [Mass/Vol] 165 mg/dL Normal <=200 [facility] Comment on above: Performed By: #### L IPID, URIC, BNP, CMP, T7, TSH #### [facility] [address] [place], [place] [address] Dr. Jasmine Pak Cholesterol in HDL [Mass/Vol] 64 mg/dL Critically high 40-60 [facility] Comment on above: Performed By: #### L IPID, URIC, BNP, CMP, T7, TSH #### [facility] [address] [address] [address] Jasmine Pak Cholesterol in LDL [Mass/Vol] 87.2 mg/dL Normal [facility] Comment on above: Performed By: #### L IPID, URIC, BNP, CMP, T7, TSH #### [facility] [address] [address] [address] Jasmine Pak Cholesterol.total/Cho lesterol in HDL [Mass ratio] 2.6 {ratio} Normal [facility] Comment on above: Performed By: #### L IPID, URIC, BNP, CMP, T7, TSH #### [facility] [address] [address] [address] Jasmine Pak HDL NORMAL > or = 60 mg/dl - LOW CARDIOVASCULAR RISK <40 mg/dl - HIGH CARDIOVASCULAR RISK Normal [facility] Comment on above: Performed By: #### L IPID, URIC, BNP, CMP, T7, TSH #### [facility] [address] [address] [address] Jasmine Pak LDL CALC NORMAL SEE BELOW Normal [facility] Comment on above: Result Comment: <100 mg/dl OPTIMAL 100 - 129 mg/dl NEAR OR ABOVE OPTIMAL 130 - 159 mg/dl BORDERLINE HIGH 160 - 189 mg/dl HIGH >190 mg/dl VERY HIGH Performed By: #### L IPID, URIC, BNP, CMP, T7, TSH #### [facility] [address] [address] [address] Jasmine Pak Triglyceride [Mass/Vol] 69 mg/dL Normal <=150 [facility] Comment on above: Performed By: #### L IPID, URIC, BNP, CMP, T7, TSH #### [facility] [address] [address] [address] Jasmine Pak VLDL CALC 13.8 mg/dL Normal [facility] Comment on above: Performed By: #### L IPID, URIC, BNP, CMP, T7, TSH #### [facility] [address] [address] [address] Jasmine Pak PROF 14(COMP METB)on 06-20-2 022 Albumin [Mass/Vol] 3.6 g/dL Normal 3.4-5.0 [facility] Comment on above: Performed By: #### L IPID, URIC, BNP, CMP, T7, TSH #### [facility] [address] [place] [address] Dr. Jasmine Pak Albumin/Globulin [Mass ratio] 1.4 {ratio} Normal [facility] Comment on above: Performed By: #### L IPID, URIC, BNP, CMP, T7, TSH #### [facility] [address] [place] [address] Dr. Jasmine Pak ALP [Catalytic activity/Vol] 65 U/L Normal 46-116 [facility] Comment on above: Performed By: #### L IPID, URIC, BNP, CMP, T7, TSH #### [facility] [address] [place] [address] Dr. Jasmine Pak ALT [Catalytic activity/Vol] 17 U/L Normal 16-63 [facility] Comment on above: Performed By: #### L IPID, URIC, BNP, CMP, T7, TSH #### [facility] [address] [place] [address] Dr. Jasmine Pak Anion gap [Moles/Vol] 12.0 mmol/L Normal [facility] Comment on above: Performed By: #### L IPID, URIC, BNP, CMP, T7, TSH #### [facility] [address] [place] [address] Dr. Jasmine Pak AST [Catalytic activity/Vol] 14 U/L Critically low 15-37 [facility] Comment on above: Performed By: #### L IPID, URIC, BNP, CMP, T7, TSH #### [facility] [address] [place] [address] Dr. Jasmine Pak Bilirubin [Mass/Vol] 0.7 mg/dL Normal 0.2-1.0 [facility] Comment on above: Performed By: #### L IPID, URIC, BNP, CMP, T7, TSH #### [facility] [address] [place] [address] Dr. Jasmine Pak Calcium [Mass/Vol] 8.5 mg/dL Normal 8.5-10.1 [facility] Comment on above: Performed By: #### L IPID, URIC, BNP, CMP, T7, TSH #### [facility] [address] [address] [address] Jasmine Pak Chloride [Moles/Vol] 104 mmol/L Normal 98-107 [facility] Comment on above: Performed By: #### L IPID, URIC, BNP, CMP, T7, TSH #### [facility] [address] [address] [address] Jasmine Pak CO2 [Moles/Vol] 30.0 mmol/L Normal 21.0-32.[address] [facility] Comment on above: Performed By: #### L IPID, URIC, BNP, CMP, T7, TSH #### [facility] [address] [address] [address] Jasmine Pak Creatinine [Mass/Vol] 1.01 mg/dL Normal 0.70-1.30 [facility] Comment on above: Performed By: #### L IPID, URIC, BNP, CMP, T7, TSH #### [facility] [address] [address] [address] Jasmine Pak EGFR-AF DUTCH >60 Normal >=[address] [facility] Comment on above: Performed By: #### L IPID, URIC, BNP, CMP, T7, TSH #### [facility] [address] [address] [address] Jasmine Pak EGFR-NON AF DUTCH >60 Normal >=60 [facility] Comment on above: Performed By: #### L IPID, URIC, BNP, CMP, T7, TSH #### [facility] [address] [address] [address] Jasmine Pak Globulin (S) [Mass/Vol] 2.6 g/dL Normal [facility] Comment on above: Performed By: #### L IPID, URIC, BNP, CMP, T7, TSH #### [facility] [address] [address] [address] Jasmine Pak Glucose [Mass/Vol] 139 mg/dL Critically high 74-106 T [facility] Comment on above: Performed By: #### L IPID, URIC, BNP, CMP, T7, TSH #### [facility] [address] [place] [address] Dr. Jasmine Pak Potassium [Moles/Vol] 4.0 mmol/L Normal 3.5-5.1 [facility] Comment on above: Performed By: #### L IPID, URIC, BNP, CMP, T7, TSH #### [facility] [address] [place] [address] Dr. Jasmine Pak Protein [Mass/Vol] 6.2 g/dL Critically low 6.4-8.2 [facility] Comment on above: Performed By: #### L IPID, URIC, BNP, CMP, T7, TSH #### [facility] [address] [place] [address] Dr. Jasmine Pak Sodium [Moles/Vol] 142 mmol/L Normal 136-145 [facility] Comment on above: Performed By: #### L IPID, URIC, BNP, CMP, T7, TSH #### [facility] [address] [place] [address] Dr. Jasmine Pak Urea nitrogen [Mass/Vol] 16.0 mg/dL Normal 7.0-18.0 [facility] Comment on above: Performed By: #### L IPID, URIC, BNP, CMP, T7, TSH #### [facility] [address] [place] [address] Dr. Jasmine Pak Urea nitrogen/Creatinine [Mass ratio] 15.8 mg/mg Normal [facility] Comment on above: Performed By: #### L IPID, URIC, BNP, CMP, T7, TSH #### [facility] [address] [place] [address] Dr. Jasmine Pak TSHon 10-13-2021 TSH 3.543 uIU/mL Normal 0.358-3.740 [facility] Comment on above: Performed By: #### L IPID, URIC, BNP, CMP, T7, TSH #### [facility] [address] [place] [address] Dr. Jasmine Pak URIC ACID SERUMon 10-13-2021 Urate [Mass/Vol] 3.6 mg/dL Normal 3.5-7.2 [facility] Comment on above: Performed By: #### L IPID, URIC, BNP, CMP, T7, TSH #### [facility] [address] [address] [address] Jasmine Pak Encounters Encounter Date Encounter Type Care Provider Facility Start: 11-17-2023 End: 11-17-2023 ambulatory MD Silver Flynn Work Phone: [facility] Work Phone: Start: 11-17-2023 End: 11-17-2023 Departed Referred MD Silver Flynn Work Phone: [facility] [place] Work Phone: Start: 10-18-2023 End: 10-18-2023 ambulatory MD Silver Flynn Work Phone: [facility] Work Phone: Start: 10-18-2023 End: 10-18-2023 Departed Referred MD Silver Flynn Work Phone: [facility] [place] Work Phone: Start: 10-13-2021 End: 10-14-[address] SILVER FLYNN Facility:[facility] Start: 10-09-[address] SILVER FLYNN Facility :[facility] Procedures Date Procedure Procedure Detail Performing Clinician Start: 10-13-[address] MERLYN FLYNN Comment on above: Performed By: #### P [facility] #### [facility] [address] [address] [address] Jasmine Pak Immunizations Immunization Date Immunization Notes Care Provider Fa cility 03-26-2021 COVID-19 mRNA-1273 (Moderna) MD Silver Flynn Work Phone: [facility] 07-04-2020 COVID-19 mRNA-1273 (Moderna) MD Silver Flynn Work Phone: [facility] 06-07-2020 COVID-19 mRNA-1273 (Moderna) MD Silver Flynn Work Phone: [facility] Payers Date Payer Category Payer Unknown [id number] 1960 Medicare [id number] 1960 Self-pay 1960 Unknown [id number] 1945 Unknown [id number] [id number] 1945 Unknown [id number] [id number] [id number] Unknown [employer] [id number] Unknown [id number] 2.16.8 [id number] Unknown [id number] 2.16.8 [id number] Social History Date Type Detail Facility Tobacco smoking stat [facility] Unknown if ever smoked [facility] Work Phone: Start: 1945 Sex Assigned At Male [facility] Evaluation note Note Date & Type Note Facility Evaluation note No assessment information availa ble [facility] Work Phone: Summary Purpose Family History [...] CREATED AUTHOR AUTHOR'S ORGANIZ ATION 06/17/2024 [facility] Care Teams (unrecognized sec [...] BE BASED ON THE PRIMARY CLINICAL RECORDS. [facility] [employer] system master [facility]. provides no warranty or guarantee of the accuracy or completeness of information in this document.
== END 2024-11-07 13:00 | disposition home or self-care (01) ==
LOC: RAD 13:02
PROVIDERS: PCP Family Medicine; Visit Provider Family Medicine
DX: M25.552 Pain in left hip (principal)
CPT/HCPCS: 73502

== ENCOUNTER 2024-12-04 06:33 | Outpatient (OUT) | payer MEDICARE, BC, SELFPAY ==
--- OUTSIDE RECORDS SUMMARY | 2024-12-04 06:36 | XMS_ITS | CCD ---
Author Organization [facility] Care Team Providers Care Vocational Coordinator Name Role Phone DR SILVER FLYNN Attending Unavailable SAMMY, DR SHEPPARD Admitting Unavailable SAMMY, DR SHEPPARD Primary Care Unavailable SAMMY, DR SHEPPARD Consulting Unavailable SAMMY, DR SHEPPARD Attending Unavailable SAMMY, DR SHEPPARD Admitting Unavailable SAMMY, DR SHEPPARD Primary Care Unavailable MD Silver Flynn Primary Care Provider [phone] MD Tylor Matos Attending Provider [phone] Tylor Matos Attending Unavailable Tylor Matos Admitting Unavailable Silver Flynn Primary Care Unavailable NO FAMILY, PHYSICIAN Primary Care Unavailable Tylor Matos Attending Unavailable Tylor Matos Admitting Unavailable Silver Flynn MD Primary Care Provider [phone] SAULO CHRISTENSEN Attending Unavail able SILVER FLYNN Referring Unavailable GABBY LIVINGSTON Attending Unavailable SILVER FLYNN Referring Unavailable Problems Active Problems Problem Classification Problem [...] DISEASE W/HEART FAIL] Onset: 10-14-2021 Chronic Other connective tissue disease (5 sources) Pain in left lower limb; Translations: [Pain in left leg] Onset: 11-27-2024 11-27-2024 Episodic Other non-traumatic joint disorders (5 sources) Hip pain; Translations: [Pain in left hip] Onset: 11-27-2024 11-27-2024 Episodic Other screening for suspected conditions (not mental [...] Test Name Value Interpretation Reference Range Facility [facility] 11-17-2023 L Specimen: [id number] Received: 11/17/23 Status: PANCHO Barbosa Num: [id number] Spec Type: Surgical Subm Dr: Tylor Matos MD Tissues: A Skin-Other than Cyst, tag, debridement or plastic repair (RT FOREHEAD) Procedures: HE/7, Gross/Micro L4 Age/ Patient Sex Location Account Attending Physician Dawson Cain Jr 78/M [place] [id number] Tylor Matos MD SPEC NUM: [id number] RECD: 11/17/23 STATUS: PANCHO BARBOSA NUM: [id number] ASHVIN: 11/17/[address]: Tylor Matos MD ENTERED: 11/17/[address] [facility] DR: SPEC TYPE: Surgical DEPT: S ORDERED: HE/7, Gross/Micro L4 ORDERED: HE/7, Gross/Micro L4 Pathological Diagnosis Forehead, right (reexcision): [...] tips A2-A4: 12:00 to 6:00 region Specimen: [id number] Received: 11/17/23 Status: PANCHO Barbosa Num: [id number] Spec Type: Surgical Subm Dr: Tylor Matos MD Tissues: A Skin-Other than Cyst, tag, debridement or plastic repair (RT FOREHEAD) Procedures: HE/Nikolai, Gross/Micro L4 Patient: Dawson Cain Jr [id number] (Continued) Specimen: [id number] Received: 11/17/23 (Continued) Signed (signature on file) Silvestre Phillips Jr., MD 11/21/231204 Specimen: [id number] Received: 11/17/23 Status: PANCHO Barbosa Num: [id number] Spec Type: Surgical Subm Dr: Tylor Matos MD Tissues: A Skin-Other than Cyst, tag, debridement or plastic repair (RT FOREHEAD) Procedures: Lani MARTINEZ/Mariely L4 Patient: Dawson Cain Jr [id number] (Continued) Specimen: [id number] Received: 11/17/23 (Continued) CPT Codes 34650 Specimen: [id number] Received: 11/17/23 Status: PANCHO Dennislai Num: [id number] Spec Type: Surgical Subm Dr: Tylor Matos MD Tissues: A Skin-Other than Cyst, tag, debridement or plastic repair (RT FOREHEAD) Procedures: , Gross/Micro L4 Patient: Dawson Cain Jr [id number] (Continued) Signed (signature on file) Silvestre Phillips Jr., MD 11/21/23 1205 Normal [facility] [place] 10-18-2023 L Specimen: [id number] Received: 10/19/23 Status: PANCHO Barbosa Num: [id number] Spec Type: Surgical Subm Dr: Tylor Matos MD Tissues: A Skin-Other than Cyst, tag, debridement or plastic repair (RT SCALP) Procedures: HE, Gross/Micro L4 Age/ Patient Sex Location Account Attending Physician Dawson Cain Jr 78/M [place] [id number] Tylor Matos MD SPEC NUM: [id number] RECD: 10/19/23 STATUS: PANCHO BARBOSA NUM: [id number] ASHVIN: 10/18/[address]: Tylor Matos MD ENTERED: 10/19/[address] [facility] [address]: SPEC TYPE: Surgical DEPT: S ORDERED: [...] and entirely submitted in A1. CPT Codes 89843 Specimen: [id number] Received: 10/19/23-1024 Status: PANCHO Barbosa Num: [id number] Spec Type: Surgical Subm Dr: Tylor Matos MD Tissues: A Skin-Other than Cyst, tag, debridement or plastic repair (RT SCALP) Procedures: Lani BOONE/Mariely L4 Patient: Dawson Cain Jr [id number] (Continued) Signed (signature on file) Shandra Renteria MD 10/20/23 1557 Normal [facility] INSULINon 10-14-2021 Insulin 4.3 uIU/mL Normal 2.6-24.9 [facility] Comment on above: Performed By: #### I WARREN #### [facility] [address] [place] [address] Dr. Jasmine Pak BNPon 10-13-2021 Natriuretic peptide B (Bld) [Mass/Vol] 107.0 pg/mL Normal <=1,800.0 [facility] Comment on above: Performed By: #### L IPID, URIC, BNP, CMP, T7, TSH #### [facility] [address] [place] [address] Dr. Jasmine Pak CBC AUTO DIFFon 10-13-2021 BASO # 0.1 103/ul Normal 0.0-0.1 [facility] Comment on above: Performed By: #### C BC #### [facility] [address] [place] [address] Dr. Jasmine Pak Basophils/100 WBC (Bld) 1.2 % Normal 0.2-2.0 [facility] Comment on above: Performed By: #### C BC #### [facility] [address] [place] [address] Dr. Jasmine Pak EO # 0.2 103/ul Normal 0.0-0.7 [facility] Comment on above: Performed By: #### C BC #### [facility] [address] [place] [address] Dr. Jasmine Pak Eosinophils/100 WBC (Bld) 4.6 % Normal 0.9-7.0 [facility] Comment on above: Performed By: #### C BC #### [facility] [address] [place] [address] Dr. Jasmine Pak Erythrocyte distribution width (RBC) [Ratio] 13.5 % Normal 11.0-15.0 [facility] Comment on above: Performed By: #### C BC #### [facility] [address] [place] [address] Dr. Jasmine Pak Hematocrit (Bld) [Volume fraction] 45.5 % Normal 42.0-54.0 [facility] Comment on above: Performed By: #### C BC #### [facility] [address] [place] [address] Dr. Jasmine Pak Hemoglobin (Bld) [Mass/Vol] 15.1 g/dL Normal 14.0-18.0 [facility] Comment on above: Performed By: #### C BC #### [facility] [address] [place] [address] Dr. Jasmine Pak IG # 0.01 10e3/ul Normal 0.00-0.03 [facility] Comment on above: Performed By: #### C BC #### [facility] [address] [place] [address] Dr. Jasmine Pak IG % 0.2 % Normal 0.0-0.5 [facility] Comment on above: Performed By: #### C BC #### [facility] [address] [place] [address] Dr. Jasmine Pak LYMPH # 1.7 103/ul Normal 1.2-3.8 [facility] Comment on above: Performed By: #### C BC #### [facility] [address] [place] [address] Dr. Jasmine Pak Lymphocytes/100 WBC (Bld) 35.1 % Normal 20.5-60.0 [facility] Comment on above: Performed By: #### C BC #### [facility] [address] [place] [address] Dr. Jasmine Pak MANUAL DIFF REQ NO Normal [facility] Comment on above: Performed By: #### C BC #### [facility] [address] [place] [address] Dr. Jasmine Pak MCH (RBC) [Entitic mass] 33.6 pg Normal 25.9-34.0 [facility] Comment on above: Performed By: #### C BC #### [facility] [address] [place] [address] Dr. Jasmine Pak MCHC (RBC) [Mass/Vol] 33.2 g/dL Normal 29.9-35.2 [facility] Comment on above: Performed By: #### C BC #### [facility] [address] [place] [address] Dr. Jasmine Pak MCV (RBC) [Entitic vol] 101.3 fL Critically high 80.0-94.0 [facility] Comment on above: Performed By: #### C BC #### [facility] [address] [place] [address] Dr. Jasmine Pak MONO # 0.6 103/ul Normal 0.3-0.8 [facility] Comment on above: Performed By: #### C BC #### [facility] [address] [address] [address] Jasmine Pak Monocytes/100 WBC (Bld) 12.7 % Critically high 1.7-12.0 [facility] Comment on above: Performed By: #### C BC #### [facility] [address] [address] [address] Jasmine Pak NEUT # 2.2 103/ul Normal 1.4-6.5 [facility] Comment on above: Performed By: #### C BC #### [facility] [address] [place] [address] Dr. Jasmine Pak Neutrophils/100 WBC (Bld) 46.2 % Normal 43.0-75.0 [facility] Comment on above: Performed By: #### C BC #### [facility] [address] [place] [address] Dr. Jasmine Pak Platelet mean volume (Bld) [Entitic vol] 9.9 fL Normal 9.5-13.5 [facility] Comment on above: Performed By: #### C BC #### [facility] [address] [place] [address] Dr. Jasmine Pak PLT 252 103/ul Normal 150-450 [facility] Comment on above: Performed By: #### C BC #### [facility] [address] [place] [address] Dr. Jasmine Pak RBC 4.49 106/ul Critically low 4.70-6.10 [facility] Comment on above: Performed By: #### C BC #### [facility] [address] [place] [address] Dr. Jasmine Pak WBC 4.8 103/ul Normal 4.0-11.0 [facility] Comment on above: Performed By: #### C BC #### [facility] [address] [place] [address] Dr. Jasmine Pak FREE THYROXINE INDEX T7on FTI 3.11 Normal 1.30-4.50 [facility] Comment on above: Performed By: #### L IPID, URIC, BNP, CMP, T7, TSH #### [facility] [address] [address] [address] Jasmine Pak T3U 37.0 % Normal 33.0-40.0 [facility] Comment on above: Performed By: #### L IPID, URIC, BNP, CMP, T7, TSH #### [facility] [address] [address] [address] Jasmine aPk T4 [Mass/Vol] 8.40 ug/dL Normal 4.50-12.10 [facility] Comment on above: Performed By: #### L IPID, URIC, BNP, CMP, T7, TSH #### [facility] [address] [place] [address] Dr. Jasmine Pak GLYCOHEMOGLOBIN A1Con 2021 ADA RECOMMENDATION SEE BELOW Normal [facility] Comment on above: Result Comment: ADA RECOMMENDED LIMIT 4.0 - 6.0 ADA THERAPEUTIC TARGET < 7.0 ACTION SUGGESTED > 7.0 Performed By: #### A 1C #### [facility] [address] [place] [address] Dr. Jasmine Pak Glucose [Mass/Vol] 154 mg/dL Normal [facility] Comment on above: Performed By: #### A 1C #### [facility] [address] [place] [address] Dr. Jasmine Pak HbA1c (Bld) [Mass fraction] 7.0 % Critically high 4.5-6.2 [facility] Comment on above: Performed By: #### A 1C #### [facility] [address] [place] [address] Dr. Jasmine Pak LIPID PROFILEon 10-13-2021 CHOL-HDL RATIO NORM SEE BELOW Normal [facility] Comment on above: Result Comment: 3.3 - 4.4 LOW RISK 4.4 - 7.1 AVERAGE RISK 7.1 - 11.0 MODERATE RISK >11.0 HIGH RISK Performed By: #### L IPID, URIC, BNP, CMP, T7, TSH #### [facility] [address] [place] [address] Dr. Jasmine Pak Cholesterol [Mass/Vol] 165 mg/dL Normal <=200 [facility] Comment on above: Performed By: #### L IPID, URIC, BNP, CMP, T7, TSH #### [facility] [address] [address] [address] Jasmine Pak Cholesterol in HDL [Mass/Vol] 64 mg/dL Critically high 40-60 [facility] Comment on above: Performed By: #### L IPID, URIC, BNP, CMP, T7, TSH #### [facility] [address] [address] [address] Jasmine Pak Cholesterol in LDL [Mass/Vol] 87.2 mg/dL Normal [facility] Comment on above: Performed By: #### L IPID, URIC, BNP, CMP, T7, TSH #### [facility] [address] [place] [address] Dr. Jasmine Pak Cholesterol.total/Cho lesterol in HDL [Mass ratio] 2.6 {ratio} Normal [facility] Comment on above: Performed By: #### L IPID, URIC, BNP, CMP, T7, TSH #### [facility] [address] [address] [address] Jasmine Pak HDL NORMAL > or = 60 mg/dl - LOW CARDIOVASCULAR RISK <40 mg/dl - HIGH CARDIOVASCULAR RISK Normal [facility] Comment on above: Performed By: #### L IPID, URIC, BNP, CMP, T7, TSH #### [facility] [address] [address] [address] Jasmine Pak LDL CALC NORMAL SEE BELOW Normal [facility] Comment on above: Result Comment: <100 mg/dl OPTIMAL 100 - 129 mg/dl NEAR OR ABOVE OPTIMAL 130 - 159 mg/dl BORDERLINE HIGH 160 - 189 mg/dl HIGH >190 mg/dl VERY HIGH Performed By: #### L IPID, URIC, BNP, CMP, T7, TSH #### [facility] [address] [address] [address] Jasmine Pak Triglyceride [Mass/Vol] 69 mg/dL Normal <=150 [facility] Comment on above: Performed By: #### L IPID, URIC, BNP, CMP, T7, TSH #### [facility] [address] [place] [address] Dr. Jasmine Pak VLDL CALC 13.8 mg/dL Normal [facility] Comment on above: Performed By: #### L IPID, URIC, BNP, CMP, T7, TSH #### [facility] [address] [place] [address] Dr. Jasmine Pak PROF 14(COMP METB)on 022 Albumin [Mass/Vol] 3.6 g/dL Normal 3.4-5.0 [facility] Comment on above: Performed By: #### L IPID, URIC, BNP, CMP, T7, TSH #### [facility] [address] [place] [address] Dr. Jasmine Pak Albumin/Globulin [Mass ratio] 1.4 {ratio} Normal [facility] Comment on above: Performed By: #### L IPID, URIC, BNP, CMP, T7, TSH #### [facility] [address] [place] [address] Dr. Jasmine Pak ALP [Catalytic activity/Vol] 65 U/L Normal 46-116 [facility] Comment on above: Performed By: #### L IPID, URIC, BNP, CMP, T7, TSH #### [facility] [address] [place] [address] Dr. Jasmine Pak ALT [Catalytic activity/Vol] 17 U/L Normal 16-63 [facility] Comment on above: Performed By: #### L IPID, URIC, BNP, CMP, T7, TSH #### [facility] [address] [place] [address] Dr. Jasmine Pak Anion gap [Moles/Vol] 12.0 mmol/L Normal [facility] Comment on above: Performed By: #### L IPID, URIC, BNP, CMP, T7, TSH #### [facility] [address] [place] [address] Dr. Jasmine Pak AST [Catalytic activity/Vol] 14 U/L Critically low 15-37 [facility] Comment on above: Performed By: #### L IPID, URIC, BNP, CMP, T7, TSH #### [facility] [address] [place] [address] Dr. Jasmine Pak Bilirubin [Mass/Vol] 0.7 mg/dL Normal 0.2-1.0 [facility] Comment on above: Performed By: #### L IPID, URIC, BNP, CMP, T7, TSH #### [facility] [address] [place] [address] Dr. Jasmine Pak Calcium [Mass/Vol] 8.5 mg/dL Normal 8.5-10.1 [facility] Comment on above: Performed By: #### L IPID, URIC, BNP, CMP, T7, TSH #### [facility] [address] [place] [address] Dr. Jasmine Pak Chloride [Moles/Vol] 104 mmol/L Normal 98-107 [facility] Comment on above: Performed By: #### L IPID, URIC, BNP, CMP, T7, TSH #### [facility] [address] [place] [address] Dr. Jasmine Pak CO2 [Moles/Vol] 30.0 mmol/L Normal 21.0-32.0 [facility] Comment on above: Performed By: #### L IPID, URIC, BNP, CMP, T7, TSH #### [facility] [address] [place] [address] Dr. Jasmine Pak Creatinine [Mass/Vol] 1.01 mg/dL Normal 0.70-1.30 [facility] Comment on above: Performed By: #### L IPID, URIC, BNP, CMP, T7, TSH #### [facility] [address] [place] [address] Dr. Jasmine Pak EGFR-AF [place]IZ[place] >60 Normal >=60 [facility] Comment on above: Performed By: #### L IPID, URIC, BNP, CMP, T7, TSH #### [facility] [address] [place] [address] Dr. Jasmine Pak EGFR-NON AF CITIZEN [place] >60 Normal >=60 [facility] Comment on above: Performed By: #### L IPID, URIC, BNP, CMP, T7, TSH #### [facility] [address] [place] [address] Dr. Jasmine Pak Globulin (S) [Mass/Vol] 2.6 g/dL Normal [facility] Comment on above: Performed By: #### L IPID, URIC, BNP, CMP, T7, TSH #### [facility] [address] [place] [address] Dr. Jasmine Pak Glucose [Mass/Vol] 139 mg/dL Critically high 74-106 [facility] Comment on above: Performed By: #### L IPID, URIC, BNP, CMP, T7, TSH #### [facility] [address] [place] [address] Dr. Jasmine Pak Potassium [Moles/Vol] 4.0 mmol/L Normal 3.5-5.1 [facility] Comment on above: Performed By: #### L IPID, URIC, BNP, CMP, T7, TSH #### [facility] [address] [place] [address] Dr. Jasmine Pak Protein [Mass/Vol] 6.2 g/dL Critically low 6.4-8.2 [facility] Comment on above: Performed By: #### L IPID, URIC, BNP, CMP, T7, TSH #### [facility] [address] [place] [address] Dr. Jasmine Pak Sodium [Moles/Vol] 142 mmol/L Normal 136-145 [facility] Comment on above: Performed By: #### L IPID, URIC, BNP, CMP, T7, TSH #### [facility] [address] [place] [address] Dr. Jasmine Pak Urea nitrogen [Mass/Vol] 16.0 mg/dL Normal 7.0-18.0 [facility] Comment on above: Performed By: #### L IPID, URIC, BNP, CMP, T7, TSH #### [facility] [address] [place] [address] Dr. Jasmine Pak Urea nitrogen/Creatinine [Mass ratio] 15.8 mg/mg Normal [facility] Comment on above: Performed By: #### L IPID, URIC, BNP, CMP, T7, TSH #### [facility] [address] [place] [address] Dr. Jasmine Pak TSHon 10-13-2021 TSH 3.543 uIU/mL Normal 0.358-3.740 [facility] Comment on above: Performed By: #### L IPID, URIC, BNP, CMP, T7, TSH #### [facility] [address] [address] [address] Jasmine Pak URIC ACID SERUMon 10-13-2021 Urate [Mass/Vol] 3.6 mg/dL Normal 3.5-7.2 [facility] Comment on above: Performed By: #### L IPID, URIC, BNP, CMP, T7, TSH #### [facility] [address] [address] [address] Jasmine Pak Encounters Encounter Date Encounter Type Care Provider Facility Start: 12-01-2024 End: 12-01-2024 Bamboo flowsheet Gabby Yara ACCOUNTS PAYABLES CLERK [facility] [place] Start: 12-01-2024 End: 12-01-2024 Bamboo flowsheet Gabby Yara ACCOUNTS PAYABLES CLERK [facility] Start: 12-01-2024 End: 12-01-2024 ambulatory Gabby Yara ACCOUNTS PAYABLES CLERK [facility] Comment on above: Acute hip pain, left (Primary Dx); Left leg pain Start: 11-27-2024 End: 11-27-2024 Bamboo flowsheet Saulo L Dauch-Picayune PT Work Phone: [facility] Start: 11-27-2024 End: 11-27-2024 Bamboo flowsheet Saulo L Dauch-Pic[facility]une PT Work Phone: [facility] Start: 11-27-2024 End: 11-27-2024 ambulatory Saulo L Dauch-Pic[facility]une PT Work Phone: [facility] Comment on above: Acute hip pain, left (Primary Dx); Left leg pain Start: 11-17-2023 End: 11-17-2023 ambulatory MD Silver Flynn Work Phone: [facility] Work Phone: Start: 11-17-2023 End: 11-17-2023 Departed Referred MD Silver Flynn Work Phone: [facility] [place] Work Phone: Start: 10-18-2023 End: 10-18-2023 ambulatory MD Silver Flynn Work Phone: [facility] Work Phone: Start: 10-18-2023 End: 10-18-2023 Departed Referred MD Silver Flynn Work Phone: [facility] [place] Work Phone: Start: 10-13-2021 End: 10-14-[address] SILVER FLYNN Facility:[facility] Start: 10-09-[address] SILVER FLYNN Facility :[facility] Procedures Date Procedure Procedure Detail Performing Clinician Start: 10-13-[address] MERLYN FLYNN Comment on above: Performed By: #### [facility] #### [facility] [address] [place] [address] Dr. Jasmine Pak Plan of Treatment Date Care Activity Detail Author Start: 12-11-2024 End: 12-11-2024 ambulatory 12/11/2024 9:30 AM EDT Treatment [facility] [address] [place] [id number] Saulo Christensen, PT [address] [place] [address] [facility] Start: 12-08-2024 End: 12-08-2024 ambulatory 12/08/2024 11:30 AM EDT Treatment [facility] [address] [place] [id number] Saulo Christensen, PT [address] [place] [address] [facility] Start: 12-04-2024 End: 12-04-2024 ambulatory 12/04/2024 11:30 AM EDT Treatment [facility] [address] [place] [address] Gabby Livingston PTA [facility] Start: 12-01-2024 End: 12-01-2024 ambulatory [facility] Comment on above: Arrived Start: 11-27-2024 End: 11-27-2024 ambulatory 11/27/2024 11:30 AM EDT Evaluation [facility] [address] [place] [address] Saulo Christensen, PT [address] [place] [address] Arrived [facility] Comment on above: Arrived Immunizations Immunization Date Immunization Notes Care Provider Fa cili 03-26-2021 COVID-19 mRNA-1273 (Moderna) MD Silver Flynn Work Phone: [facility] 07-04-2020 COVID-19 mRNA-1273 (Moderna) MD Silver Flynn Work Phone: [facility] 06-07-2020 COVID-19 mRNA-1273 (Moderna) MD Silver Flynn Work Phone: [facility] Payers Date Payer Category Payer [facility] [id number] 2015 Unknown [id number] 2009 Medicare MEDICARE [id number] 1959 Medicare [id number] 1959 Self-pay 1959 Unknown [id number] 1944 Unknown [id number] 1944 Unknown [id number] 1945 Unknown [id number] 1945 Unknown [id number] Unknown [employer] [id number] Unknown [id number] [id number] Unknown [id number] [id number] Social History Date Type Detail Facility Tobacco smoking status INIS Unknown if ever smoked [facility] Work Phone: Start: 1945 Sex Assigned At Male [facility] Tobacco smoking status INIS Tobacco smoking consumption unknown [facility] Start: 1945 Sex assigned at Not on file [facility] Gender identity Not on file [facility] are History of Present illness Narrative 11-27-2024 Saulo Christensen, PT - 11/27/2024 11:30 AM EDT Note Date & Type Note Facility 11-27-2024 History of Presen t illness Narrative Images from the original note were not included. Physical Therapy Physical Therapy Evaluation Visit Patient Name: Dawson Cain Today's Date: 11/27/2024 Encounter Diagnoses Name Primary? Acute hip pain, left Yes Left leg pain Visit number: 1 Subjective Dawson Cain 79 y.o. male presents to physical therapy w/ chief c/o left hip pain. Insidious onset of pain 10/27/24. Pt. States pain progressively has worsened. Pt. Has been utilizing spc and FWW to reduce pressure on L LE. Mechanism of Onset: insidious onset. Current deficits: Antalgic gait pattern, utilizing spc or FWW. Pt. Describes sleep disruption initially secondary to pain. Decreased tolerance for prolonged positions. Unable to stand upright d/t worsening of pain. Pain: >10/10 at times, 4/10 at rest Location: posterior lateral hip, extends along lateral thigh and lateral serrano distal to ankle. Aggravating Factors: FWB on L LE, rest, walking, standing upright Relieving factors: medication including Tylenol, NSAID Precautions: PMH: DM II, hx of Prostate CA Imaging: X-ray indicating degenerative changes in acetabulum L hip Objective Spine Musculoskeletal Exam Gait Antalgic: left Assistive device: cane Gait additional comments: Trunk forward flexed, decreased stance time L, decreased stride Palpation Thoracolumbar Tenderness: none Range of Motion Thoracolumbar Flexion: 75%. Flexion detail: no pain. Extension: <25%. Extension comment: increased L posterior lateral hip and lateral thigh pain distal to ankle. Extension detail: pain. Right Lateral bendin%. Lateral bending detail: no pain. Left Lateral bendin%. Lateral bending detail: pain. Sensory Thoracolumbar Left Lateral leg: decreased Lateral leg comment: numbness w/ light touch Special Tests Thoracolumbar Right SYBIL test: negative Left SYBIL test: negative SLR: no back or leg pain Spine special tests additional comments: Hip Screen: Negative, minor loss of ER w/ capsular end feel, non provoking of pain. Negative SLUMP, Negative iliotibial nerve tension + Compression/Distraction, relief w/ lumbar distraction, L LE long leg distraction. Hip Musculoskeletal Exam Gait Antalgic: left Assistive device: cane Gait additional comments: Trunk forward flexed, decreased stance time L, decreased stride Special Tests Right SYBIL test (right): negative Left SYBIL test (left): negative Treatment Interventions: Education: HEP education with demonstration, Educated on Eval Findings and POC Manual Therapy: manual lumbar/hip distraction, nerve mobilization L sciatic, iliotibial Therapeutic Exercise: Juanito's Flexion provided as HEP, lower trunk ROM, progression to neutral core stabilization, hip mobility and lateral hip strengthening Therapeutic Activity: Exercises to improve dynamic activities, functional tasks, functional mobility to return to prior activity level Modalities: Initiated lumbar mechanical traction 70/35# for lumbar decompression, may include moist heat, ice as needed to symptomatic areas of pain. Assessment/Plan Pt. Presents w/ posterior lateral L hip, buttock pain w/ L LE radicular sx's consistent w/ lumbar stenosis impairing ability to standing upright, walk and WB w/o pain in L LE. Assessment/Plan Patient Goals Short Term Goal #1: The patient will demonstrate compliance w/ HEP to facilitate L LE pain management. Short Term Goal #2: The patient will demonstrate decreased pain at rest to 0/10 in L hip and L LE to improve sleep tolerance, ability to perform ambulation w/ least restrictive a.d. w/o pain limiting Short Term Goal #3: The patient will demonstrate ability to achieve neutral trunk extension and posture during standing, walking w/o onset of L LE pain Short Term Goal #4: The patient will demonstrate ability to resume ambulation independently w/o a.d. 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 Dawson Cain will benefit from physical therapy 2 times per week for 2-4 weeks per above plan of care. I hereby deem this POC medically necessary. Please sign below. Date: documented in this encounter [facility] Evaluation note Note Date & Type Note Facility Evaluation note No [facility] Evaluation note Note Date & Type Note Facility Evaluation note Diagnosis Acute hip pain, left- Primary Left leg pain Pain in soft tissues of limb documented in this encounter [facility] Evaluation note Note Date & Type Note Facility Evaluation note Diagnosis Acute hip pain, left- Primary Left leg pain Pain in soft tissues of limb documented in this encounter [facility] Reason for visit Narrative Rehabilitation - Outpatient (Routine) - Authorized Note Date & Type Note Facility Reason for visit Narrative Specialty Diagnoses / Procedures Referred By Contac t Referred To Contact Physical Therapy Diagnoses Pain in left hip Procedures SC PHYSICAL THERAPY EVALUATION LOW COMPLEX 20 MINS Silver Flynn MD [address] [id number] Phone: tel:[phone] fax: Vanessa Nash, PT Referral ID Status Reason Start Date Expiration Date Visits Requested Visits Authorized [id number] Authorized Consult and Treat 11/14/2024 05/13/2025 30 30 [facility] Reason for visit Narrative Rehabilitation - Outpatient (Routine) - Authorized Note Date & Type Note Facility Reason for visit Narrative Specialty Diagnoses / Procedures Referred By Contac t Referred To Contact Physical Therapy Diagnoses Pain in left hip Procedures SC PHYSICAL THERAPY EVALUATION LOW COMPLEX 20 MINS Silver Flynn MD [address] [place] [address] Phone: tel:[phone] fax: Vanessa Nash PT Referral ID Status Reason Start Date Expiration Date Visits Requested Visits Authorized [id number] Authorized Consult and Treat 11/14/2024 04/25/2025 30 30 [facility] Summary Purpose Family History No Family History Records FoundNo Family History Records FoundNo Family History Records Found Advance Directives No Advanced Directives Records Found Advance Directive Response Recorded Date/ Time Advance Directives No May 5:32pm Chief Complaint and Reason for Visit Chief Complaint D49.2 Additional Source Comments (unrecognized sect ion and content) No Status Records FoundNo Status Records FoundNo Status Records Found INFORMATION SOURCE (unrecogn ized section and content) DATE CREATED AUTHOR 10/15/2021 [facility] DATE CREATED AUTHOR AUTHOR'S ORGANIZ ATION 06/17/2024 [facility] DATE CREATED AUTHOR AUTHOR'S ORGANIZ ATION 12/03/2024 [facility] Care Teams (unrecognized sec tion and content) [...] November 17, 2023 End: November 17, 2023 Vocational Coordinator Relationship Specialty Start Date End Date Silver Flynn MD [address] [place] [address] PCP - General Family Medicine 11/14/24 Vocational Coordinator Relationship Specialty Start Date End Date Silver Flynn MD [address] [place] [address] PCP - General Family Medicine 11/14/24 Vocational Coordinator Relationship Specialty Start Date End Date Silver Flynn MD [address] [place] [address] PCP - General Family Medicine 11/14/24 Vocational Coordinator Relationship Specialty Start Date End Date Silver Flynn MD [address] [place] [address] PCP - General Family Medicine 11/14/24 Goals (unrecognized section and content) Goals may [...] BE BASED ON THE PRIMARY CLINICAL RECORDS. [facility]. provides no warranty or guarantee of the accuracy or completeness of information in this document.
[2024-12-04 07:38] LABS: Free T3 2.27 pg/mL (2.18-3.98); Thyroid Stimulating Hormone 3.482 uIU/mL (0.358-3.740)
== END 2024-12-04 06:34 | disposition home or self-care (01) ==
LOC: LAB 06:34
PROVIDERS: PCP Family Medicine; Visit Provider Family Medicine
DX: E03.9 Hypothyroidism, unspecified (principal)
CPT/HCPCS: 36415; 84436; 84443; 84481

== ENCOUNTER 2025-01-18 06:57 | Outpatient (OUT) | payer MEDICARE, BC, SELFPAY ==
--- OUTSIDE RECORDS SUMMARY | 2025-01-11 06:45 | XMS_ITS ---
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 Name Role Phone Brenden Flynn Primary Care Provider Allergies No Known Allergies REASON FOR VISIT yearly Medications Medication SIG (Take, Route, Frequency, Duration) Notes Start Date End Date Status Viagra 100 MG 1 tablet as needed O rally Once a day; Duration: 30 days Active Atorvastatin Calcium 20 MG Take 1 tablet by mouth once daily Orally Once a day; Duration: 90 days Active Lisinopril 40 MG Take 1 tablet by sonal th once daily; Duration: 30 days Active metFORMIN HCl 500 MG 2 tablet with a aristides l Orally twice daily; Duration: 90 days 09/07/2022 Active Invokana 100 MG 1 tablet before the first meal of the day Orally Once a day; Duration: 90 days Active amLODIPine Besylate 5 MG Take 1 tablet b y mouth once daily; Duration: 90 Active traZODone HCl 50 MG Take 1 tablet by sonal th twice daily; Duration: 90 days Active Lancets Super Thin 28G - as directed Active Glimepiride 4 MG 1 tablet Orally twic e a day; Duration: 30 days 01/11/2025 Active Accu-Chek Mary Plus - as directed In Vitro Active Pioglitazone HCl 45 MG Take 1 tablet by mouth once daily; Duration: 90 Active Pantoprazole Sodium 40 MG 1 tablet 1/2 t o 1 hour before morning meal Orally Once a day; Duration: 90 days Active Social History Tobacco Use: Social History Observation Description Date Details (start date - stop date) Never Smoker NA - NA Tobacco Use/Smoking Question Answer Notes Patient is a nonsmoker Vital Signs Weight 171.4 lbs 01/11/2025 Height 69 in 01/11/2025 Blood pressure systolic 148 mm Hg 01/12/20 25 Blood pressure diastolic 82 mm Hg 025 BMI 25.31 kg/m2 01/11/2025 Procedures Procedure Date Ordered Date Performed Result Body Sit e CARDIO Echocardiogram 01/11/2025 N/A Encounters Encounter Location Date Provider Diagnosis [facility] [address] [place] [address] 01/11/2025 Brenden Flynn Hyperlipidemia E78.5 ; Hypertension I10 ; Diabetes mellitus, type II E11.9 ; Hypothyroidism E03.9 and Murmur R01.1 Assessments Encounter Date Diagnosis (ICD Code) Assessment Notes Treatment Notes Treatment Clinical Notes Section Notes 01/11/2025 Hyperlipidemia (ICD-10 - E78.5) on meds - stable 01/11/2025 Hypertension (ICD-10 - I10) stable here 01/11/2025 Diabetes mellitus, type II (ICD-10 - E11.9) adjusted glimeride 01/11/2025 Hypothyroidism (ICD-10 - E03.9) on meds - checkon on labs 01/11/2025 Murmur (ICD-10 - R01.1) Plan Of Treatment Medication Medication Name Sig Start Date Stop Date Notes Viagra 100 MG 1 tablet as needed O rally Once a day; Duration: 30 days Atorvastatin Calcium 20 MG Take 1 tablet by mouth once daily Orally Once a day; Duration: 90 days Lisinopril 40 MG Take 1 tablet by sonal th once daily; Duration: 30 days metFORMIN HCl 500 MG 2 tablet with a aristides l Orally twice daily; Duration: 90 days 09/07/2022 Invokana 100 MG 1 tablet before the first meal of the day Orally Once a day; Duration: 90 days amLODIPine Besylate 5 MG Take 1 tablet b y mouth once daily; Duration: 90 traZODone HCl 50 MG Take 1 tablet by sonal th twice daily; Duration: 90 days Glimepiride 4 MG 1 tablet Orally twic e a day; Duration: 30 days 01/11/2025 Pioglitazone HCl 45 MG Take 1 tablet by mouth once daily; Duration: 90 Pantoprazole Sodium 40 MG 1 tablet 1/2 t o 1 hour before morning meal Orally Once a day; Duration: 90 days Treatment Notes Assessment Notes Hyperlipidemia on meds - stable Hypertension stable here Diabetes mellitus, type II adjusted glim eride Hypothyroidism on meds - checkon on labs Pending Test Test Name Order Date CARDIO Echocardiogram 01/11/2025 Next Appt Details Provider Name:Brenden Chavez Gee, 10:15:00 AM, [address] [facility] [place], [address], Progress Notes * Dawson CAIN RDOB:[birth year] (79 yo M)Acc No.[id number]:01/11/2025 Progress Note Patient: Dawson MASON Provider: Carolina Flynn ([facility])MD :1945 A ge:79 Y S ex:Male Date:01/11/2025 Address:[address] [place] [address], [place], [id number] Check In:10:34 AM ESTCheck O ut:11:10 AM EST Subjective: * Chief Complaints: * Y early * HPI: G eneral: DM sugar hihg - back on glimiperide - 4 mg - 127 this am. * ROS: E ENT: hearing changes d enies. v isual changes d enies.?non-healing mouth sores d enies. s wollen glands or neck lumps d enies. h oarseness d enies. s ore throat d enies. d ifficulty swallowing d enies. n ose bleeds d enies. n gatito congestion d enies. e ar ache d enies. e ar discharge?denies. r inging in ears d enies. l ight sensitivity d enies. e ye pain d enies. b lurring d enies. e ye irritation d enies. d ouble vision d enies.?vision loss d enies. G eneral/Constitutional: Sweats: D enies. F atigue d enies. S leep problems d enies. A norexia d enies. M alaise d enies. W eight loss d enies.?Fatigue or Weakness d enies. F ever or Chills d enies. C ardiovascular: Shortness of Breath w/lying flat d enies. L ightheadedness/dizziness d enies. C hest tightness/ heavy pressure d enies. S welling of legs, ankles, or feet d enies. W aking up with shortness of breath d enies. C hest pain denies. P alpitations d enies. W eight gain d enies. R espiratory: Chronic or frequent cough d enies. C oughing up blood?denies. D ifficulty breathing d enies. P roductive cough d enies. S noring?denies. S hortness of breath that awakens from sleep (PND) d enies. C hest pain d enies. S putum production d enies. W heezing d enies. M usculoskeletal: Joint pain d enies. J oint Fluid d enies. B ack pain d enies. K nee pain d enies. N daniel pain d enies. J oint Stiffness d enies. M uscle cramps d enies. W eakness of muscles d enies. A rthritis d enies. M uscle aches d enies. P ain in shoulder(s) d enies. S wollen joints d enies. * Active Problem List Z91.81 History of falling Modified On:09/18/2022 Status:confirmed E78.5 Hyperlipidemia Modified On:09/23/2022U Status:confirmed I10 Hypertension Modified On:09/23/2022U Status:confirmed Z00.00 Well adult Modified On:09/18/2022U Status:confirmed R10.11 Abdominal pain, RUQ Modified On:09/18/2022U Status:confirmed C61 Carcinoma of prostat e Modified On:09/23/2022U Status:confirmed E11.9 Diabetes mellitus, t ype II Modified On:09/23/2022U Status:confirmed N40.0 Benign hypertrophy o f prostate Modified On:09/18/2022U Status:confirmed H54.7 Vision loss Modified On:05/24/2024U Status:confirmed M54.30 Sciatic leg pain Modified On:11/01/2024U Status:confirmed E03.9 Hypothyroidism Modified On:07/11/2025W/U Status:confirmed * Medical History: * Surgical History: S eed Implant for Prostate Cancer 2004All teeth pulled shave biopsy right scalp * Hospitalization/Major Diagno stic Procedure: P inched nerve 12/2024 * Family History: F ather: 60 yrs. [...] is a n onsmoker * Medications: T akingAccu-Chek Mary Plus(Glucose Blood) [...] Take 1 tablet by mouth once daily traZODone HCl 50 MG Tablet Take 1 tablet by mouth twice daily Viagra 100 MG Tablet 1 tablet as needed Orally Once a day Taking Accu-Chek Mary Plus(Glucose Blood) - Strip as [...] 1 tablet by mouth once daily Taking traZODone HCl 50 MG Tablet Take 1 tablet by mouth twice daily Taking Viagra 100 MG Tablet 1 tablet as needed Orally Once a day DiscontinuedGabapentin 300 MG Capsule 1 capsule Orally bid HYDROcodone-Acetaminophen 5-325 MG Tablet 1 tablet as needed Orally every 6 hrs M54.30Meloxicam 15 MG Tablet 1 tablet Orally Once a day predniSONE 20 MG Tablet 3 tablets Orally Once a day Medication List reviewed and reconciled with the patientDiscontinued Gabapentin 300 MG Capsule 1 capsule Orally bid Discontinued HYDROcodone-Acetaminophen 5-325 MG Tablet 1 tablet as needed Orally every 6 hrs M54.30Discontinued Meloxicam 15 MG Tablet 1 tablet Orally Once a day Discontinued predniSONE 20 MG Tablet 3 tablets Orally Once a day Medication List reviewed and reconciled with the patient * Allergies: N .K.D.A.no[Allergies Verified] Objective: * Vitals: W t:171.4lbs, Ht: 69 in, BP:148/82mm Hg, BMI:25.31Index, Ht-cm: 175.26 cm, Wt-k.75 kg. * Examination: P hysical Exam: GENERAL: w ell developed, well nourished, in no acute distress. HEAD: n ormocephalic/atraumatic. EYES: p upils equal, round and reactive to light, conjunctivae and sclerae normal. EARS: n o deformity or lesion of external ear, canals and TM appear normal bilaterally, TM's intact, not inflamed with normal light reflex, hearing grossly normal to conversational speech. NOSE: n o deformity, discharge, inflammation, or lesions.? MOUTH: m ucous membranes moist, normal oropharynx and posterior pharynx without lesions or exudates, tongue normal, dentition normal. NECK: n daniel supple, no masses or palpable cervical nodes, trachea midline, thyroid without nodules, masses, tenderness, or enlargement. CHEST: n o chest wall deformity, no chest wall tenderness.? LUNGS: n ormal respiratory effort and clear to auscultation, no wheezes, rales, or rhonchi, good air exchange. CARDIO: A aortic area mumrmur. PULSES: n ormal capillary refill. ABDOMEN: s oft, non-distended, non-tender, no masses. MUSCULOSKELETAL: n o deformity or scoliosis noted, normal range of motion, joints normal, no erythema, edema, effusion, or ecchymosis. EXTREMITY: n o clubbing, cyanosis, edema, or deformity with normal ROM in both upper and lower bilateral extremities. NEUROLOGIC: g rossly normal. SKIN: n o rashes, ulcerations, or suspicious lesions. LYMPH NODES: n o cervical adenopathy, nodes normal. MENTAL STATUS: a lert and oriented x3, normal mood and affect. Assessment: * Assessment: 1. H yperlipidemia - E78.5 (Primary) 2 . H ypertension - I10 ?3. D iabetes mellitus, type II - E11.9 4 . H ypothyroidism - E03.9 ? 5 . M urmur - R01.1 Plan: * Treatment: 2. H ypertension Notes: stable here 3. D iabetes mellitus, type II Notes: adjusted glimeride 4. H ypothyroidism Notes: on meds - checkon on labs 5. M urmur P rocedure: CARDIO Echocardiogram * Procedure Codes: * Preventive Medicine: Screenings/Counseling: B AK ACTION PLAN Above Normal BMI Follow-up D ietary management education, guidance, and counseling * * Sign off status: Completed Visit Status: C HK (Check Out) true * Provider: Carolina Flynn ([facility])MD Date: 01/11/2025 Generated for Antonioi ng/Katy/eTransmitting on: 01/18/2025 07:01 AM EDT History and Physical Notes * HPI (History of Present Illness) Category Sub-Category Detail Notes Category Not es General DM sugar hihg - back on glimiperide - 4 mg - 127 this am Examination Category Sub-Category Detail Notes Category Not es Physical Exam GENERAL: well developed, well nourished, in no acute distress HEAD: normocephalic/atraum atic EYES: pupils equal, round and reactive to light, conjunctivae and sclerae normal EARS: no deformity or lesi on of external ear, canals and TM appear normal bilaterally, TM's intact, not inflamed with normal light reflex, hearing grossly normal to conversational speech NOSE: no deformity, discha rge, inflammation, or lesions MOUTH: mucous membranes dmitriy st, normal oropharynx and posterior pharynx without lesions or exudates, tongue normal, dentition normal NECK: neck supple, no mass es or palpable cervical nodes, trachea midline, thyroid without nodules, masses, tenderness, or enlargement CHEST: no chest wall deform ity, no chest wall tenderness LUNGS: normal respiratory e ffort and clear to auscultation, no wheezes, rales, or rhonchi, good air exchange CARDIO: A aortic area mumrmu r PULSES: normal capillary ref ill ABDOMEN: soft, non-distended, non-tender, no masses RECTAL: MUSCULOSKELETAL: no deformity or scol iosis noted, normal range of motion, joints normal, no erythema, edema, effusion, or ecchymosis EXTREMITY: no clubbing, cyanosi s, edema, or deformity with normal ROM in both upper and lower bilateral extremities NEUROLOGIC: grossly normal SKIN: no rashes, ulceratio ns, or suspicious lesions LYMPH NODES: no cervical adenopat hy, nodes normal MENTAL STATUS: alert and oriented x 3, normal mood and affect
--- OUTSIDE RECORDS SUMMARY | 2025-01-17 04:55 | XMS_ITS | Continuity of Care Document ---
Author Organization [facility] Address [address] [place] [address] Phone Care Team Providers Care Gettering Operator Name Role Phone Breezy Ordoñez MD Attending Provider Avni Christianson MD Primary Care Provider Avni Christianson MD Referring Provider Breezy Ordoñez MD Other Provider [phone] Care Teams Patient Care Team Team Status: Active Member Role Status Jose Christianson MD Primary Care Provider Active Visit Care Team Team Status: Inactive Member Role Status Jose Ordoñez MD Attending Provider Active Sta rt: December 05, 2024 End: December 05, 2024 Avni Christianson MD Primary Care Provider Active Start: December 05, 2024 End: December 05, 2024 Avni Christianson MD Referring Provider Active Sta rt: December 05, 2024 End: December 05, 2024 Visit Care Team Team Status: Inactive Member Role Status Jose Christianson MD Primary Care Provider Active Start: December 05, 2024 End: December 05, 2024 Breezy Ordoñez MD Attending Provider Active Sta rt: December 05, 2024 End: December 05, 2024 Visit Care Team Team Status: Inactive Member Role Status Jose Christianson MD Primary Care Provider Active Start: December 22, 2024 End: December 22, 2024 Breezy Ordoñez MD Attending Provider Active Sta rt: December 22, 2024 End: December 22, 2024 Visit Care Team Team Status: Inactive Member Role Status Jose Christianson MD Primary Care Provider Active Start: December 28, 2024 End: December 28, 2024 Breezy Ordoñez MD Attending Provider Active Sta rt: December 28, 2024 End: December 28, 2024 Visit Care Team Team Status: Active Member Role Status Dates Avni Christianson MD Primary Care Provider Active Start: January 09, 2025 Breezy Ordoñez MD Attending Provider Active Sta rt: January 09, 2025 Breezy Ordoñez MD Other Provider Active Start: January 09, 2025 Patient Care Team Team Status: Inactive Member Role Status Dates Avni Christianson MD Primary Care Provider Active Start: January 17, 2025 End: January 17, 2025 Breezy Ordoñez MD Attending Provider Active Sta rt: January 17, 2025 End: January 17, 2025 Chief Complaint and Reason for Visit Chief Complaint Admit Date CONSULT DR CHRISTIANSON December 05, 2024 1: 20pm M54.50 - Low back pain, unspecified Augu 2024 1:32pm M47.26 December 22, 2024 6: 52am MRI RESULTS December 28, 2024 10:50am LUMBAR PAIN January 09, 2025 10:10am F/U LEFT LUMBAR TRANSFORAMINAL EPIDURAL INJ January 17, 2025 8:37am Reason for Visit Admit Date Chronic pain December 05, 2024 1: 20pm Lumbar pain December 05, 2024 1: 20pm Osteoarthritis of spine with radiculopat hy, lumbar region December 05, 2024 1:20pm Chronic pain December 28, 2024 10:50am Lumbar pain December 28, 2024 10:50am Osteoarthritis of spine with radiculopat hy, lumbar region December 28, 2024 10:50am Chronic pain January 17, 2025 8:37am Lumbar pain January 17, 2025 8:37am Osteoarthritis of spine with radiculopat hy, lumbar region January 17, 2025 8:37am Reason for Referral Referring Provider Name Referring Provider Address Referring Provider Phone Referral Date Requested Appointment Date Referral Reason Breezy Ordoñez [address] [facility] [address] Work Phone: Call Dr. Sharma office to schedule a follow up appointment if you do not already have one scheduled Allergies, Adverse Reactions, Alerts Allergen Type Severity Reaction Last Updated Verified Status No Known Allergies Allergy Unknown December 05, 2024 1:2 6pm Yes Active Social History Smoking Status Status Start Date End Date Date of Observa tion Ex-smoker (finding) Declety keys 2024 10:55am Observation Status Observation Response Date of Response Legal Sex Male (finding) Sex Assigned At Male 1945 Family History Relationship Condition Age at Onset Recorded Date/T tram father Heart failure Unknown mother Malignant neoplasm of breast Unknown Problems Active Problems Medical Problem Onset Date Status Chronic pain Unknown Active Osteoarthritis of spine with radiculopathy, lumb ar region Unknown Active Lumbar pain Unknown Active Medications Medication Status Dose Units Route Directions Qty Days St art Date Stop Date End Date Instructions Adherence Metformin 500 mg tablet Active 1000 MG PO Twice daily December 05, 2024 12:00a m Complies with drug therapy Atorvastati n 20 mg tablet Active 20 MG PO Daily December 05, 2024 12:00a m Complies with drug therapy Trazodone 50 mg tablet Active 100 MG PO Daily at bedtime December 05, 2024 12:00a m Complies with drug therapy Hydrocodone -Acetaminop hen 5-325 mg tablet Discont inued TAB PO December 05, 2024 12:00a m [facility] 2024 11:03 am Pioglitazon e 45 mg tablet Active 45 MG PO Daily December 05, 2024 12:00a m Complies with drug therapy Amlodipine 5 mg tablet Active 5 MG PO Daily December 05, 2024 12:00a m Complies with drug therapy Pantoprazol e 40 mg tablet,shawn yed release (DR/EC) Active 40 MG PO Daily December 05, 2024 12:00a m Complies with drug therapy Lisinopril 40 mg tablet Active 40 MG PO Daily December 05, 2024 12:00a m Complies with drug therapy Canaglifloz in (Invokana) 100 mg tablet Active 100 MG PO Daily December 05, 2024 12:00a m Complies with drug therapy Gabapentin 300 mg capsule Discont inued 300 MG PO Twice daily 60 30 December 05, 2024 12:00a m [facility] 2024 11:27 am Methylpredn isolone (Medrol (Surjit)) 4 mg tablets,dos e pack Discont inued 0 PO per package directions December 05, 2024 12:00a m [facility] 2024 11:03 am PO PER PKG DIR for 6 days Gabapentin 300 mg capsule Active 300 MG PO Twice daily 180 90 Septem 2024 11:27a m Complies with drug therapy Immunizations Immunization Event Date Not Given Reason Dose Number Maintenance Assistant Lot Number Vaccine Information Statement (VIS) Detail Administration Location COVID-19 mRNA-1273 (Moderna) June 07, 2020 [id number] [facility] COVID-19 mRNA-1273 (Moderna) July 04, 2020 [id number] [facility] COVID-19 mRNA-1273 (Moderna) March 26, 2021 Procedures Procedure Date Performed Status XR lumbar spine AP/LAT/FLX/EXT December 05, 2024 1:32pm completed MR lumbar spine wo con December 22, 2024 6:53am completed Relevant Diagnostic Tests and/or Laboratory Data Diagnostic Imaging Reports Author Martell Fowler [facility] Authored December 05, 2024 9: 38pm Report Dictated Date/Time Dictated By Status Radiology Report December 05, 2024 9:38pm Martell Hicks rd , DO completed [facility] [address] [place] [address] XRay Report Signed Patient: Dawson Cain Jr MR#: [id number] : 1945 Acct:[id number] Age/Sex: 79 / M ADM Date: 5 Loc: [facility] Room: Type: [facility] Attending Dr: Breezy Ordoeñz MD Copies to: Breezy Ordoñez MD~ Ordering Provider: Breezy Ordoñez MD Date of Service: 12/05/24 XR/XR lumbar spine AP/LAT/FLX/EXT: M54.50 - Low back pain, unspecified AP with lateral neutral, flexion-extension views Lumbar Spine HISTORY: Lower back pain. Left leg numbness one month duration COMPARISON: None POSTSURGICAL CHANGES: None BONY ALIGNMENT: Mild scoliosis HYPERMOBILITY:No hypermobility LISTHESIS:Mild listhesis FRACTURE: None DEGENERATIVE CHANGES: Mild multilevel spondylosis. Extensive lower lumbar facet degeneration SOFT TISSUES: Unremarkable BONY MINERALIZATION:Decreased XR/XR lumbar spine AP/LAT/FLX/EXT IMPRESSION: No hypermobility. Mild scoliosis. Degenerative changes greatest at the lower lumbar facets Impression dictated by: Martell Fowler M.D. 12/05/2024 9:39 PM Dictation Location: [facility]20 Transcribed By: PWS 12/05/242138 Dictated By: Martell Fowler DO 12/05/242137 Signed By: <Electronically signed by Martell Fowler DO in OV> 12/05/242138 Author Enrique Ordaz [facility] Authored December 22, 2024 5: 21pm Report Dictated Date/Time Dictated By Status Radiology Report December 22, 2024 5:21pm Enrique carpenter II MD completed [facility] [address] [place] [address] MRI Report Signed Patient: Dawson Cain Jr MR#: [id number] : 1945 Acct:[id number] Age/Sex: 79 / M ADM Date: 5 Loc: MR Room: Type: [facility] Attending Dr: Breezy Ordoñez MD Copies to: Breezy Ordoñez MD~ Ordering Provider: Breezy Ordoñez MD Date of Service: 12/22/24 MR/MR lumbar spine wo con: M47.26 - Other spondylosis with radiculopathy, lumbar region MR lumbar spine wo con 12/22/2024 7:20 AM SIGNS AND SYMPTOMS: Left hip pain radiating down left leg PROTOCOL: Multiplanar multisequence MR images of the lumbar spine without IV contrast COMPARISON: 12/05/2024 FINDINGS: The bones of the lumbar spine are in anatomic alignment. There is preservation of vertebral body heights. There is disc desiccation and mild disc height loss at L1-L2, L2-3, L3-L4, and L4-L5. The marrow signal is within normal limits. The conus terminates at the inferior endplate of the T12 vertebral body level. No epidural or paraspinous fluid collection is appreciated. There is a simple cyst in the right renal cortex requiring no further follow-up. At T12-L1: There is a normal disc, central canal, and neural foramen. At L1-L2: There is a normal disc, central canal, and neural foramen. At L2-L3: There is a normal disc, central canal, and neural foramen. At L3-L4: There is a broad-based disc bulge with facet hypertrophy. Small bilateral facet effusions are present. There is mild spinal canal narrowing with moderate bilateral neural foraminal stenosis. At L4-L5: There is a broad-based disc bulge. There is facet hypertrophy and ligamentum flavum thickening. There is moderate spinal canal stenosis with a left subarticular disc extrusion. There is cranial migration. This extends into the left neural foramen and causes severe left neural foraminal stenosis with mass effect on the exiting left L4 nerve roots. There is moderate to severe right neural foraminal narrowing. At L5-S1: Facet hypertrophy is present with small bilateral facet effusions. No significant stenosis. MR/MR lumbar spine wo con IMPRESSION: At L4-L5: There is a broad-based disc bulge. There is facet hypertrophy and ligamentum flavum thickening. There is moderate spinal canal stenosis with a left subarticular disc extrusion. There is cranial migration. This extends into the left neural foramen and causes severe left neural foraminal stenosis with mass effect on the exiting left L4 nerve roots. There is moderate to severe right neural foraminal narrowing. Lesser degrees of degenerative changes are noted as above. Impression dictated by: Enrique Ordaz M.D. 12/22/2024 5:26 PM Dictation Location: [facility]17 Transcribed By: [facility] 12/22/24 172 Dictated By: Enrique Ordaz II, MD 12/22/24 172 Signed By: <Electronically signed by Enrique Ordaz II, MD in OV> 12/22/24 172 Vital Signs Vital Reading Result Reference Range Collection Date/Time Height 70 [in_i] January 09, 2025 10:55am Weight 77.11 kg January 09, 2025 10:55am Heart Rate 60 /min 60-100 January 09, 2025 11:50am Respiratory rate 16 /min 12-24 December 252024 11:50am Oxygen saturation by Pulse oximetry 99 % 95-100 January 09, 2025 11:50am BP Systolic 143 mm[Hg] 100-140 January 09, 2025 11:50am BP Diastolic 83 mm[Hg] 60-100 January 09, 2025 11:50am Inhaled oxygen flow rate 3 L[facility] 11:16am Advance Directives Advance Directive Response Recorded Date/ Time Advance Directives No May 5:32pm Insurance Providers Guarantor Dawson Cain Address [address] [facility] [address] Contact Info. Home Phone: Payer Policy Id Subscriber's Name Subscriber Id Effectiv e Date Expiration Date [place] [employer]/ [id number] Dawson Cain [id number] Medicare [id number] Dawson Cain [id number] Encounters Encounter Location(s) Arrival/Admit Date Discharge/Depart Date Provider(s) Departed Physician/Prov ider Office Visit -[facility] December 05, 2024 1:20pm December 05, 2024 2:05pm Esther Mata MD Departed Clinical -XRay [place] [facility] December 05, 2024 1:32pm December 05, 2024 1:33pm Esther Mata MD Departed Clinical -MRI [facility] December 22, 2024 6:52am December 22, 2024 6:53am Esther Mata MD Departed Physician/Prov ider Office Visit -[facility] December 28, 2024 10:50am December 28, 2024 11:02am Esther Mata MD Non-patient / Non-visit -[facility] January 09, 2025 10:10am Esther Mata MD Departed Physician/Prov ider Office Visit -[facility] January 17, 2025 8:37am January 17, 2025 8:54am Esther Mata MD Recent Diagnosis Onset Date Admit Date Chronic pain Unknown December 05 1:20pm Lumbar pain Unknown December 05 1:20pm Osteoarthritis of spine with radiculopathy, lumbar region Unknown December 05, 2024 1:20pm Chronic pain Unknown December 28 025 10:50am Lumbar pain Unknown December 28 10:50am Osteoarthritis of spine with radiculopathy, lumbar region Unknown December 28, 2024 10:50am Chronic pain Unknown January 17, 2025 8:37am Lumbar pain Unknown January 17, 2025 8:37am Osteoarthritis of spine with radiculopathy, lumbar region Unknown January 17, 2025 8:37am Assessments Diagnosis Onset Date Resolution Status Admit Date Chronic pain acute December 05, 2024 1:20pm Lumbar pain acute December 05, 2024 1:20pm Osteoarthritis of spine with radiculopathy, lumbar region acute Aug 2024 1:20pm Chronic pain acute December 10:50am Lumbar pain acute December 10:50am Osteoarthritis of spine with radiculopathy, lumbar region acute Sep 2024 10:50am Chronic pain acute January 172024 8:37am Lumbar pain acute December 8:37am Osteoarthritis of spine with radiculopathy, lumbar region acute Sep 2024 8:37am Plan of Treatment Author [facility] Authored December 05, 2024 2: 03pm Patients primary complaint t hina is severe left lumbar and gluteal/ hip pain radiating into the lateral aspect of his left lower extremity, extending into his foot. I will order an MRI of his lumbar spine for further evaluation. Pending the results, we can consider a referral to neurosurgery vs injection therapy. In the meantime, given his radiating symptoms, I will trial Gabapentin 300 MG twice daily as tolerated. I will also prescribe a Medrol Dose Pack to hopefully help alleviate his pain. Patient was instructed not to begin the Medrol Dose Pack until our office calls with his lumabr x-ray results. We will follow up once we obtain his MRI results. Anatomy of spine discussed in detail with patient in regards to patients condition. Above note written by Aleksandr Tucker MA, Automated Process Operator. Edited and approved by Dr. Breezy Ordoñez MD. Author Philip Mcleod [facility] Authored December 28, 2024 11:28am MRI results of the lumbar sp ine was reviewed with the patient today MRI shows moderate to severe right neural foraminal narrowing. We discussed conservative treatment VS consult from Neurosurgery. Patient would like to continue with conservative treatment, and would like to avoid surgical intervention if possible. We will proceed with a left lumbar transforaminal epidural steroid injection. Risks and benefits of procedure explained to patient; patient verbalizes understanding. Anatomy of spine discussed in detail with patient in regards to patients condition. Gabapentin was refilled today. Above note written by ODESSA Gill, Automated Process Operator. Edited and approved by Dr. Breezy Ordoñez MD. Author Lesly Ritter [facility] Authored January 17, 2025 8:53am Patient notes considerable i mprovement in their symptoms following a recent left lumbar transforaminal epidural steroid injection. We will continue to monitor and proceed with repeat treatment to the area as needed. She was advised of the importance of activity modification and limitations. We will follow up with the patient in 3 months, sooner if needed. Anatomy of spine discussed in detail with patient in regards to patients condition. Overall, patient believes their pain is reasonably well controlled and she is in agreement with our treatment plan. Above note written by Lesly Ritter MA, Automated Process Operator. Edited and approved by Dr. Breezy Ordoñez MD. Future Tests Future scheduled test information is unavailable Pending Tests Pending diagnostic test information is unavailable Future Visits Future appointment information is unavailable Referrals to Other Providers Reason for Referral Referral Start Date Provider Provider Contact Information Provider Address Call Dr. Sharma office to schedule a follow up appointment if you do not already have one scheduled Esther Mata MD Work Phone: [facility] [address] Future Procedures Procedure Name Ordered Date Scheduled Date Discharge Order January 09, 2025 11:51am Sep tember 2024 11:51am Future Medications Future medication information is unavailable Patient Instructions Instruction Admit Date Low back pain in adults December 05 1:20pm Know your Meds [place] Non Diagnostic Block January 09, 2025 10:10am
--- OUTSIDE RECORDS SUMMARY | 2025-01-18 07:00 | XMS_ITS | CCD ---
Author Organization [facility] CliniSymd Care Team Providers Care 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 Name Role Phone DR SILVER FLYNN Attending Unavailable SAMMY, DR SHEPPARD Admitting Unavailable SAMMY, DR SHEPPARD Primary Care Unavailable SAMMY, DR SHEPPARD Consulting Unavailable SAMMY, DR SHEPPARD Attending Unavailable SAMMY, DR SHEPPARD Admitting Unavailable SAMMY, DR SHEPPARD Primary Care Unavailable MD Silver Flynn Primary Care Provider [phone] MD Tylor Matos Attending Provider Silver Flynn MD Primary Care Provider [phone] Breezy Ordoñez MD Attending Provider Silver Flynn MD Primary Care Provider [phone] Silver Flynn MD Referring Provider [phone] SAULO CHRISTENSEN Attending Unavail able SILVER FLYNN Referring Unavailable YARAGABBY Attending Unavailable SILVER FLYNN Referring Unavailable YARA, GABBY Attending Unavailable SILVER FLYNN Referring Unavailable SAULO CHRISTENSEN Attending Unavail able SAMMY SILVER Scott Referring Unavailable ALPA MCKEON Attending Unavailable SILVER FLYNN Referring Unavailable Breezy Ordoñez MD Other Provider Breezy Ordoñez Admitting Unavailable Breezy Ordoñez Attending Unavailable Silver Flynn Primary Care Unavailable Breezy Ordoñez Admitting Unavailable Breezy Ordoñez Attending Unavailable Silver Flynn Primary Care Unavailable Breezy Ordoñez Admitting Unavailable Breezy Ordoñez Attending Unavailable Silver Flynn Primary Care Unavailable Medications Current Medications Medication Drug Class(es) Dates Sig (Normalized) Sig (Original) amLODIPine 5 mg oral tablet (6 sources) Dihydropyridine Calcium Channel Rula Start: 12-05-2024 take 1 tablet by mouth once daily Amlodipine 5 mg tablet Active 5 MG PO Daily December 05, 2024 12:00am Complies with drug therapy atorvastatin 20 mg oral tablet (6 sources) HMG-CoA Reductase Inhibitor Start: 12-05-2024 take 1 tablet by mouth once daily Atorvastatin 20 mg tablet Active 20 MG PO Daily December 05, 2024 12:00am Complies with drug therapy canagliflozin 100 mg oral tablet (6 sources) Sodium-Glucose Cotransporter 2 Inhibitor Start: 12-05-2024 take 1 tablet by mouth once daily Canagliflozin (Invokana) 100 mg tablet Active 100 MG PO Daily December 05, 2024 12:00am Complies with drug therapy gabapentin 300 mg oral capsule (8 sources) Anti-epileptic Agent Start: 12-05-2024 End: 12-28-2024 take 1 capsule by mouth twice daily Gabapentin 300 mg capsule Active 300 MG PO Twice daily 180 90 December 28, 2024 11:27am Complies with drug therapy lisinopril 40 mg oral tablet (6 sources) Angiotensin Converting Enzyme Inhibitor Start: 12-05-2024 take 1 tablet by mouth once daily Lisinopril 40 mg tablet Active 40 MG PO Daily December 05, 2024 12:00am Complies with drug therapy metFORMIN hydrochloride 500 mg oral tablet (6 sources) Biguanide Start: 12-05-2024 take 2 tablets by mouth twice daily Metformin 500 mg tablet Active 1000 MG PO Twice daily December 05, 2024 12:00am Complies with drug therapy Start: 12-05-2024 pantoprazole 40 mg delayed release oral tablet (6 sources) Proton Pump Inhibitor Start: 12-05-2024 take 1 tablet by mouth once daily Pantoprazole 40 mg tablet,delayed release (DR/EC) Active 40 MG PO Daily December 05, 2024 12:00am Complies with drug therapy pioglitazone 45 mg oral tablet (6 sources) Peroxisome Proliferator Receptor alpha Agonist, Peroxisome Proliferator Receptor gamma Agonist, Thiazolidinedione Start: 12-05-2024 take 1 tablet by mouth once daily Pioglitazone 45 mg tablet Active 45 MG PO Daily December 05, 2024 12:00am Complies with drug therapy traZODone hydrochloride 50 mg oral tablet (6 sources) Serotonin Reuptake Inhibitor Start: 12-05-2024 take 2 tablets by mouth once daily at bedtime Trazodone 50 mg tablet Active 100 MG PO Daily at bedtime December 05, 2024 12:00am Complies with drug therapy Start: 12-05-2024 Completed/Discontinued Medications Medication Drug Class(es) Dates Sig (Normalized) Sig (Original) acetaminophen 325 mg / HYDROcodone bitartrate 5 mg oral tablet (6 sources) Opioid Agonist Start: 5 End: 5 Hydrocodone-Acetaminop hen 5-325 mg tablet Discontinued TAB PO December 05, 2024 12:00am January 09, 2025 11:03am methylPREDNISolone 4 mg oral tablet (6 sources) Corticosteroid Start: 5 End: 5 take 1 tablet by mouth once Methylprednisolone (Medrol (Surjit)) 4 mg tablets,dose pack Discontinued 0 PO per package directions December 05, 2024 12:00am January 09, 2025 11:03am PO PER PKG DIR for 6 days Problems Problem Classification Problem Date Documented Da [...] Onset: 10-14-2021 Chronic Other connective tissue disease (14 sources) Pain in left lower limb; Translations: [Pain in left leg] Onset: 11-27-2024 11-27-2024 Episodic Other nervous system disorders (16 sources) Chronic pain; Translations: [Other chronic pain] 12-05-2024 Chronic Other nervous system disorders (1 source) Other chronic pain; Translations: [Other chronic pain] Onset: 01-09-2025 Chronic Other non-traumatic joint disorders (14 sources) Hip pain; Translations: [Pain in left hip] Onset: 11-27-2024 11-27-2024 Episodic Other screening for suspected conditions (not mental disorders or infectious disease) (1 source) Encounter for screening for malignant neoplasm of prostate; Translations: [ENC SCREEN MALIG NEOPLASM PROSTATE] Onset: 10-14-2021 Episodic Spondylosis; intervertebral disc disorders; other back problems (17 sources) Other spondylosis with radiculopathy, lumbar region; Translations: [Osteoarthritis of spine with radiculopathy, lumbar region] Onset: 01-09-2025 12-05-2024 Chronic Spondylosis; intervertebral disc disorders; other back problems (16 sources) Low back pain; Translations: [Lumbar back pain] 11-14-2024 Episodic Unclassified (2 sources) Call Dr. Sharma office to schedule a follow up appointment if you do not already have one scheduled Unclassified (1 source) Low back pain, unspecified; Translations: [Low back pain, unspecified] Onset: 12-05-2024 Results Test Name Value Interpretation Reference Range Facility MR lumbar spine wo conon MR lumbar spine wo con [facility] [place] [address] MRI Report Signed Patient: Dawson Cain Jr MR#: [id number] : 1945 Acct:[id number] Age/Sex: 79 / M ADM Date: 12/22/24 Loc: MR Room: Type: [facility] Attending Dr: Breezy Ordoñez MD Copies to: Breezy Ordoñez MD Ordering Provider: Breezy Ordoñez MD Date of [...] canal narrowing with moderate bilateral neural foraminal sten osis. At L4-L5: There is a broad-based disc [...] Ordaz M.D. 12/22/2024 5:26 PM Dictation Location: [place] [address] Transcribed By: [facility] 12/22/24 172 Dictated By: Enrique Ordaz II, MD 12/22/24 1721 Signed By: 12/22/24 172 Normal [facility] Magnetic resonance imaging r eportOrdered By: Enrique Ordaz on 12-22-2024 Study report [facility] [place] [address] MRI Report Signed Patient: Dawson Cain Jr MR#: [id number] : 1945 Acct:[id number] Age/Sex: 79 / M ADM Date: 5 Loc: MR Room: Type: [facility] Attending Dr: Breezy Ordoñez MD Copies to: Breezy Ordoñez MD~ Ordering Provider: Breezy Ordoñez MD Date of Service: 12/22/24 MR/MR lumbar spine wo con: M47.26 - Other spondylosiswith radiculopathy, lumbar region MR lumbar spine wo con 12/22/2024 7:20 AM SIGNS AND SYMPTOMS: Left hip pain radiating down left leg PROTOCOL: Multiplanar multisequence MR images of the lumbar spine without IV contrast COMPARISON: 12/05/2024 FINDINGS: The bones of the lumbar spine are in anatomic alignment. There is preservation of vertebral body heights. There is disc desiccation and mild discheight loss at L1-L2, L2-3, L3-L4, and L4-L5. [...] is present with small bilateral facet effusions. Nosignificant stenosis. MR/MR lumbar spine wo con IMPRESSION: [...] noted as above. Impression dictated by: Enrique Oradz M.D. 12/22/2024 5:26 PM Dictation Location: [facility] Transcribed By: MAREN 12/22/24 172 Dictated By: Enrique Ordaz II, MD 12/22/24 172 Signed By: 12/22/241725 [facility] Work Phone: X-ray reportOrdered By: Spencer Fowler on 12-05-2024 Study report [facility] [address] [place] [address] XRay Report Signed Patient: Dawson Cain Jr MR#: [id number] : 1945 Acct:[id number] Age/Sex: 79 / M ADM Date: 5 Loc: [facility] Room: Type: [facility] Attending Dr: Breezy Ordoñez MD Copies [...] CHANGES: Mild multilevel spondylosis. Extensive lower lumbar facetdegeneration SOFT TISSUES: Unremarkable BONY MINERALIZATION:Decreas ed XR/XR lumbar spine AP/LAT/FLX/EXT IMPRESSION: No hypermobility. Mild scoliosis. Degenerative changes greatest atthe lower lumbar facets Impression dictated by: Martell Fowler M.D. 12/05/2024 9:39 PM Dictation Location: [facility]20 Transcribed By: MAREN 12/05/242138 Dictated By: Martell Fowler DO 12/05/242137 Signed By: 12/05/242138 [facility] XR lumbar spine AP/LAT/FLX/E XTon 12-05-2024 XR lumbar spine AP/LAT/FLX/EXT [facility] [address] [place] [address] XRay Report Signed Patient: Dawson Cain Jr MR#: [id number] : 1945 Acct:[id number] Age/Sex: 79 / M ADM Date: 12/05/24 Loc: [facility] Room: Type: [facility] Attending Dr: Breezy Ordoñez MD Copies to: Breezy Ordoñez MD Ordering Provider: Breezy Ordoñez MD Date of [...] lumbar facet degeneration SOFT TISSUES: Unremarkable BONY MINERALIZATION:Decreas ed XR/XR lumbar spine AP/LAT/FLX/EXT IMPRESSION: No hypermobility. Mild scoliosis. Degenerative changes greatest at the lower lumbar facets Impression dictated by: Martell Fowler M.D. 12/05/2024 9:39 PM Dictation Location: [facility] Transcribed By: MAREN 12/05/242138 Dictated By: Martell Fowler DO 12/05/242137 Signed By: 12/05/242138 Normal [facility] INSULINon 10-14-2021 Insulin 4.3 uIU/mL Normal 2.6-24.9 [facility] Comment on above: Performed By: #### I NSULIN #### [facility] [address] [place] [address] Dr. Jasmine Pak BNPon 10-13-2021 Natriuretic peptide B (Bld) [Mass/Vol] 107.0 pg/mL Normal <=1,800.0 [facility] Comment on above: Performed By: #### L IPID, URIC, BNP, CMP, T7, TSH #### [facility] [address] [place] [address] Dr. Jasmine Pak CBC AUTO DIFFon 10-13-2021 BASO # 0.1 103/ul Normal 0.0-0.1 [facility] Comment on above: Performed By: #### C BC #### [facility] [address] [place] [address] Dr. Jasmine Pak Basophils/100 WBC (Bld) 1.2 % Normal 0.2-2.0 [facility] Comment on above: Performed By: #### C BC #### [facility] [address] [place] [address] Dr. Jasmine Pak EO # 0.2 103/ul Normal 0.0-0.7 [facility] Comment on above: Performed By: #### C BC #### [facility] [address] [place] [address] Dr. Jasmine Pak Eosinophils/100 WBC (Bld) 4.6 % Normal 0.9-7.0 [facility] Comment on above: Performed By: #### C BC #### [facility] [address] [place] [address] Dr. Jasmine Pak Erythrocyte distribution width (RBC) [Ratio] 13.5 % Normal 11.0-15.0 [facility] Comment on above: Performed By: #### C BC #### [facility] [address] [place] [address] Dr. Jasmine Pak Hematocrit (Bld) [Volume fraction] 45.5 % Normal 42.0-54.0 [facility] Comment on above: Performed By: #### C BC #### [facility] [address] [place] [address] Dr. Jasmine Pak Hemoglobin (Bld) [Mass/Vol] 15.1 g/dL Normal 14.0-18.0 [facility] Comment on above: Performed By: #### C BC #### [facility] [address] [place] [address] [address] Jasmine Pak IG # 0.01 10e3/ul Normal 0.00-0.03 [facility] Comment on above: Performed By: #### C BC #### [facility] [address] [place] [address] [address] Jasmine Pak IG % 0.2 % Normal 0.0-0.5 [facility] Comment on above: Performed By: #### C BC #### [facility] [address] [place] [address] Dr. Jasmine Pak LYMPH # 1.7 103/ul Normal 1.2-3.8 [facility] Comment on above: Performed By: #### C BC #### [facility] [address] [place] [address] Dr. Jasmine Pak Lymphocytes/100 WBC (Bld) 35.1 % Normal 20.5-60.0 [facility] Comment on above: Performed By: #### C BC #### [facility] [address] [place] [address] Dr. Jasmine Pak MANUAL DIFF REQ NO Normal [facility] Comment on above: Performed By: #### C BC #### [facility] [address] [place] [address] Dr. Jasmine Pak MCH (RBC) [Entitic mass] 33.6 pg Normal 25.9-34.0 [facility] Comment on above: Performed By: #### C BC #### [facility] [address] [place] [address] Dr. Jasmine Pak MCHC (RBC) [Mass/Vol] 33.2 g/dL Normal 29.9-35.2 [facility] Comment on above: Performed By: #### C BC #### [facility] [address] [place] [address] Dr. Jasmine Pak MCV (RBC) [Entitic vol] 101.3 fL Critically high 80.0-94.0 [facility] Comment on above: Performed By: #### C BC #### [facility] [address] [address] [address] Jasmine Pak MONO # 0.6 103/ul Normal 0.3-0.8 [facility] Comment on above: Performed By: #### C BC #### [facility] [address] [place] [address] [address] Jasmnie Pak Monocytes/100 WBC (Bld) 12.7 % Critically high 1.7-12.0 [facility] Comment on above: Performed By: #### C BC #### [facility] [address] [place] [address] Dr. Jasmine Pak NEUT # 2.2 103/ul Normal 1.4-6.5 [facility] Comment on above: Performed By: #### C BC #### [facility] [address] [place] [address] Dr. Jasmine Pak Neutrophils/100 WBC (Bld) 46.2 % Normal 43.0-75.0 [facility] Comment on above: Performed By: #### C BC #### [facility] [address] [place] [address] Dr. Jasmine Pak Platelet mean volume (Bld) [Entitic vol] 9.9 fL Normal 9.5-13.5 [facility] Comment on above: Performed By: #### C BC #### [facility] [address] [place] [address] Dr. Jasmine Pak PLT 252 103/ul Normal 150-450 [facility] Comment on above: Performed By: #### C BC #### [facility] [address] [place] [address] [address] Jasmine Pak RBC 4.49 106/ul Critically low 4.70-6.10 [facility] Comment on above: Performed By: #### C BC #### [facility] [address] [place] [address] Dr. Jasmine Pak WBC 4.8 103/ul Normal 4.0-11.0 [facility] Comment on above: Performed By: #### C BC #### [facility] [address] [place] [address] Dr. Jasmine Pak FREE THYROXINE INDEX T7on FTI 3.11 Normal 1.30-4.50 [facility] Comment on above: Performed By: #### L IPID, URIC, BNP, CMP, T7, TSH #### [facility] [address] [place] [address] Dr. Jasmine Pak T3U 37.0 % Normal 33.0-40.0 [facility] Comment on above: Performed By: #### L IPID, URIC, BNP, CMP, T7, TSH #### [facility] [address] [place] [address] Dr. Jasmine Pak T4 [Mass/Vol] 8.40 ug/dL Normal 4.50-12.10 [facility] Comment on above: Performed By: #### L IPID, URIC, BNP, CMP, T7, TSH #### [facility] [address] [place] [address] Dr. Jasmine Pak GLYCOHEMOGLOBIN A1Con 2021 ADA RECOMMENDATION SEE BELOW Normal [facility] Comment on above: Result Comment: ADA RECOMMENDED LIMIT 4.0 - 6.0 ADA THERAPEUTIC TARGET < 7.0 ACTION SUGGESTED > 7.0 Performed By: #### A 1C #### [facility] [address] [place] [address] Dr. Jasmine Pak Glucose [Mass/Vol] 154 mg/dL Normal [facility] Comment on above: Performed By: #### A 1C #### [facility] [address] [place] [address] Dr. Jasmine Pak HbA1c (Bld) [Mass fraction] 7.0 % Critically high 4.5-6.2 [facility] Comment on above: Performed By: #### A 1C #### [facility] [address] [place] [address] Dr. Jasmine Pak LIPID PROFILEon 10-13-2021 CHOL-HDL RATIO NORM SEE BELOW Normal [facility] Comment on above: Result Comment: 3.3 - 4.4 LOW RISK 4.4 - 7.1 AVERAGE RISK 7.1 - 11.0 MODERATE RISK >11.0 HIGH RISK Performed By: #### L IPID, URIC, BNP, CMP, T7, TSH #### [facility] [address] [address] [address] Jasmine Pak Cholesterol [Mass/Vol] 165 mg/dL Normal <=200 [facility] Comment on above: Performed By: #### L IPID, URIC, BNP, CMP, T7, TSH #### [facility] [address] [address] [address] Jasmine Pak Cholesterol in HDL [Mass/Vol] 64 mg/dL Critically high 40-60 [facility] Comment on above: Performed By: #### L IPID, URIC, BNP, CMP, T7, TSH #### [facility] [address] [address] [address] Jasmine Pak Cholesterol in LDL [Mass/Vol] 87.2 mg/dL Normal [facility] Comment on above: Performed By: #### L IPID, URIC, BNP, CMP, T7, TSH #### [facility] [address] [address] [address] Jasmine Pak Cholesterol.total/Ch olesterol in HDL [Mass ratio] 2.6 {ratio} Normal [facility] Comment on above: Performed By: #### L IPID, URIC, BNP, CMP, T7, TSH #### [facility] [address] [address] [address] Jasmine Pak HDL NORMAL > or = 60 mg/dl - LO W CARDIOVASCULAR RISK <40 mg/dl - HIGH CARDIOVASCULAR RISK Normal [facility] Comment on above: Performed By: #### L IPID, URIC, BNP, CMP, T7, TSH #### [facility] [address] [address] [address] Jasmine Pak LDL CALC NORMAL SEE BELOW Normal [facility] Comment on above: Result Comment: <100 mg/dl OPTIMAL 100 - 129 mg/dl NEAR OR ABOVE OPTIMAL 130 - 159 mg/dl BORDERLINE HIGH 160 - 189 mg/dl HIGH >190 mg/dl VERY HIGH Performed By: #### L IPID, URIC, BNP, CMP, T7, TSH #### [facility] [address] [address] [address] Jasmine Pak Triglyceride [Mass/Vol] 69 mg/dL Normal <=150 [facility] Comment on above: Performed By: #### L IPID, URIC, BNP, CMP, T7, TSH #### [facility] [address] [address] [address] Jasmine Pak VLDL CALC 13.8 mg/dL Normal [facility] Comment on above: Performed By: #### L IPID, URIC, BNP, CMP, T7, TSH #### [facility] [address] [address] [address] Jasmine Pak PROF 14(COMP METB)on 022 Albumin [Mass/Vol] 3.6 g/dL Normal 3.4-5.0 [facility] Comment on above: Performed By: #### L IPID, URIC, BNP, CMP, T7, TSH #### [facility] [address] [place] [address] Dr. Jasmine Pak Albumin/Globulin [Mass ratio] 1.4 {ratio} Normal [facility] Comment on above: Performed By: #### L IPID, URIC, BNP, CMP, T7, TSH #### [facility] [address] [address] [address] Jasmine Pak ALP [Catalytic activity/Vol] 65 U/L Normal 46-116 [facility] Comment on above: Performed By: #### L IPID, URIC, BNP, CMP, T7, TSH #### [facility] [address] [address] [address] Jasmine Pak ALT [Catalytic activity/Vol] 17 U/L Normal 16-63 [facility] Comment on above: Performed By: #### L IPID, URIC, BNP, CMP, T7, TSH #### [facility] [address] [address] [address] Jasmine Pak Anion gap [Moles/Vol] 12.0 mmol/L Normal [facility] Comment on above: Performed By: #### L IPID, URIC, BNP, CMP, T7, TSH #### [facility] [address] [address] [address] Jasmine Pak AST [Catalytic activity/Vol] 14 U/L Critically low 15-37 [facility] Comment on above: Performed By: #### L IPID, URIC, BNP, CMP, T7, TSH #### [facility] [address] [place] [address] Dr. Jasmine Pak Bilirubin [Mass/Vol] 0.7 mg/dL Normal 0.2-1.0 [facility] Comment on above: Performed By: #### L IPID, URIC, BNP, CMP, T7, TSH #### [facility] [address] [place] [address] Dr. Jasmine Pak Calcium [Mass/Vol] 8.5 mg/dL Normal 8.5-10.1 [facility] Comment on above: Performed By: #### L IPID, URIC, BNP, CMP, T7, TSH #### [facility] [address] [place] [address] Dr. Jasmine Pak Chloride [Moles/Vol] 104 mmol/L Normal 98-107 [facility] Comment on above: Performed By: #### L IPID, URIC, BNP, CMP, T7, TSH #### [facility] [address] [place] [address] Dr. Jasmine Pak CO2 [Moles/Vol] 30.0 mmol/L Normal 21.0-32.0 [facility] Comment on above: Performed By: #### L IPID, URIC, BNP, CMP, T7, TSH #### [facility] [address] [place] [address] Dr. Jasmine Pak Creatinine [Mass/Vol] 1.01 mg/dL Normal 0.70-1.30 [facility] Comment on above: Performed By: #### L IPID, URIC, BNP, CMP, T7, TSH #### [facility] [address] [place] [address] Dr. Jasmine Pak EGFR-AF IRISH >60 Normal >=60 [facility] Comment on above: Performed By: #### L IPID, URIC, BNP, CMP, T7, TSH #### [facility] [address] [place] [address] Dr. Jasmine Pak EGFR-NON AF IRISH >60 Normal >=60 [facility] Comment on above: Performed By: #### L IPID, URIC, BNP, CMP, T7, TSH #### [facility] [address] [place] [address] Dr. Jasmine Pak Globulin (S) [Mass/Vol] 2.6 g/dL Normal [facility] Comment on above: Performed By: #### L IPID, URIC, BNP, CMP, T7, TSH #### [facility] [address] [address] [address] Jasmine Pak Glucose [Mass/Vol] 139 mg/dL Critically high 74-106 [facility] Comment on above: Performed By: #### L IPID, URIC, BNP, CMP, T7, TSH #### [facility] [address] [place] [address] Dr. Jasmine Pak Potassium [Moles/Vol] 4.0 mmol/L Normal 3.5-5.1 [facility] Comment on above: Performed By: #### L IPID, URIC, BNP, CMP, T7, TSH #### [facility] [address] [place] [address] Dr. Jasmine Pak Protein [Mass/Vol] 6.2 g/dL Critically low 6.4-8.2 [place] Comment on above: Performed By: #### L IPID, URIC, BNP, CMP, T7, TSH #### [facility] [facility] [address] [place] [address] Dr. Jasmine Pak Sodium [Moles/Vol] 142 mmol/L Normal 136-145 [facility] Comment on above: Performed By: #### L IPID, URIC, BNP, CMP, T7, TSH #### [facility] [address] [place] [address] Dr. Jasmine Pak Urea nitrogen [Mass/Vol] 16.0 mg/dL Normal 7.0-18.0 [facility] Comment on above: Performed By: #### L IPID, URIC, BNP, CMP, T7, TSH #### [facility] [address] [place] [address] Dr. Jasmine Pak Urea nitrogen/Creatinine [Mass ratio] 15.8 mg/mg Normal [facility] Comment on above: Performed By: #### L IPID, URIC, BNP, CMP, T7, TSH #### [facility] [address] [address] [address] Jasmine Pak TSHon 10-13-2021 TSH 3.543 uIU/mL Normal 0.358-3.740 [facility] Comment on above: Performed By: #### L IPID, URIC, BNP, CMP, T7, TSH #### [facility] [address] [address] [address] Jasmine Pak URIC ACID SERUMon 10-13-2021 Urate [Mass/Vol] 3.6 mg/dL Normal 3.5-7.2 [facility] Comment on above: Performed By: #### L IPID, URIC, BNP, CMP, T7, TSH #### [facility] [address] [address] [address] Jasmine Pak Vital Signs Date Time Vital Sign Value Performing Clinician Faci lity 01-09-2025 11:50-0400 Diastolic blood pressure 83 mm[Hg] Breezy Ordoñez MD Work Phone: [facility] 01-09-2025 11:50-0400 Heart rate 60 /min Breezy Ordoñez MD Work Phone: [facility] 01-09-2025 11:50-0400 Respiratory rate 16 /min Breezy Ordoñez MD Work Phone: [facility] 01-09-2025 11:50-0400 SaO2% (BldA) [Mass fraction] 99 % Breezy Ordoñez MD Work Phone: [facility] 01-09-2025 11:50-0400 Systolic blood pressure 143 mm[Hg] Breezy Ordoñez MD Work Phone: [facility] 01-09-2025 11:16-0400 Inhaled oxygen flow rate 3 L/min Breezy Ordoñez MD Work Phone: [facility] 01-09-2025 10:55-0400 Body height 177.8 cm Breezy Ordoñez MD Work Phone: [facility] 01-09-2025 10:42-9400 Body weight 77.11 kg Breezy Ordoñez MD Work Phone: [facility] Encounters Encounter Date Encounter Type Care Provider Facility Start: 01-17-2025 End: 01-17-2025 ambulatory Silver Flynn MD Work Phone: [facility] Work Phone: Start: 01-17-2025 End: 01-17-2025 Patient encounter procedure Breezy Santana MD -[facility] Work Phone: Start: 01-09-2025 End: 01-09-2025 ambulatory Breezy Ordoñez Facility:[facility] Start: 01-09-2025 Non-patient / Non-visit Breezy Santana MD -[facility] Work Phone: Start: 12-28-2024 End: 12-28-2024 ambulatory Silver Flynn MD Work Phone: [facility] Work Phone: Start: 12-28-2024 End: 12-28-2024 Patient encounter procedure Breezy Santana MD -[facility] Work Phone: Start: 12-22-2024 End: 12-22-2024 Patient encounter procedure Breezy Santana MD -[facility] [place] Work Phone: Start: 12-22-2024 End: 12-22-2024 ambulatory Silver Flynn MD Work Phone: [facility] Work Phone: Start: 12-11-2024 End: 12-11-2024 Bamboo flowsheet Alpa GAMBINOS [facility] Start: 12-11-2024 End: 12-11-2024 Bamboo flowsheet Alpa Mckeon PTA [facility] Start: 12-11-2024 End: 12-11-2024 ambulatory Alpa Mckeon PTA [facility] Comment on above: Acute hip pain, left (Primary Dx); Left leg pain Start: 12-08-2024 End: 12-08-2024 Bamboo flowsheet Saulo L [facility] [facility] Work Phone: [facility] Start: 12-08-2024 End: 12-08-2024 Bamboo flowsheet Saulo L [facility] [facility] Start: 12-08-2024 End: 12-08-2024 ambulatory [facility] L [facility] Comment on above: Acute hip pain, left (Primary Dx); Left leg pain Start: 12-05-2024 End: 12-05-2024 ambulatory Silver Flynn MD Work Phone: [facility] Work Phone: Start: 12-05-2024 End: 12-05-2024 Patient encounter procedure Breezy Santana MD -[facility] Work Phone: Start: 12-04-2024 End: 12-04-2024 Bamboo flowsheet Gabby Yara ANTHROPOLOGIST [facility] Start: 12-04-2024 End: 12-04-2024 Bamboo flowsheet Gabby Yara ANTHROPOLOGIST [facility] Start: 12-04-2024 End: 12-04-2024 ambulatory Gabby Yara ANTHROPOLOGIST [facility] Comment on above: Acute hip pain, left (Primary Dx); Left leg pain Start: 12-01-2024 End: 12-01-2024 Bamboo flowsheet Gabby Yara ANTHROPOLOGIST [facility] Start: 12-01-2024 End: 12-01-2024 Bamboo flowsheet Gabby Yara ANTHROPOLOGIST [facility] Start: 12-01-2024 End: 12-01-2024 ambulatory Gabby Yara ANTHROPOLOGIST [facility] Comment on above: Acute hip pain, left (Primary Dx); Left leg pain Start: 11-27-2024 End: 11-27-2024 Bamboo flowsheet Saulo L [facility] Work Phone: [facility] Start: 11-27-2024 End: 11-27-2024 Bamboo 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 Saulo L [facility] Work Phone: [facility] Start: 11-27-2024 End: 11-27-2024 ambulatory Saulo L [facility] [place] [facility] Work Phone: [facility] Comment on above: Acute hip pain, left (Primary Dx); Left leg pain Start: 11-17-2023 End: 11-17-2023 ambulatory MD Silver Flynn Work Phone: [facility] Work Phone: Start: 11-17-2023 End: 11-17-2023 Departed Referred MD Silver Flynn Work Phone: [facility] [place] Work Phone: Start: 10-18-2023 End: 10-18-2023 ambulatory MD Silver Flynn Work Phone: [facility] Work Phone: Start: 10-18-2023 End: 10-18-2023 Departed Referred MD Silver Flynn Work Phone: [facility] [place] Work Phone: Start: 10-13-2021 End: 10-14-[address] SILVER FLYNN Facility:[facility] Start: 10-09-[address] SILVER FLYNN Facility :[facility] Procedures Date Procedure Procedure Detail Performing Clinician Start: 12-22-2024 MR lumbar spine wo con Silver Flynn MD Work Phone: Start: 12-05-2024 X-ray of lumbar spin e, four views Silver Flynn MD Work Phone: Start: 10-13-[address] MERLYN FLYNN Comment on above: Performed By: #### P [facility] #### [facility] [address] [address] [address] Jasmine Pak Plan of Treatment Date Care Activity Detail Author Start: 01-09-2025 [facility] Start: 12-25-2024 Influenza vaccination Influenza Vacc ine (#1) [facility] Start: 12-11-2024 End: 12-11-2024 ambulatory [facility] Comment on above: Arrived Start: 12-08-2024 End: 12-08-2024 ambulatory [facility] Comment on above: Arrived Start: 12-05-2024 X-ray of lumbar spin e, four views XR lumbar spine AP/LAT/FLX/EXT [facility] Start: 12-04-2024 End: 12-04-2024 [facility]ulatory [facility] Comment on above: Arrived Start: 12-01-2024 End: 12-01-2024 ambulatory [facility] [place] [facility] Comment on above: Arrived Start: 11-27-2024 End: 11-27-2024 ambulatory 11/27/2024 11:30 AM EDT Evaluation [facility] [address] [place] [id number] Saulo Christensen, PT [address] [place] [address] Arrived [facility] Comment on above: Arrived Start: 1994 Pneumococcal Vaccine : 65+ Years (1 of 1 - PCV) Pneumococcal Vaccine: 65+ Years (1 of 1 - PCV) [facility] MR Lumbar spine WO contrast [facility] Patient Education [facility] Work Phone: Patient referral [facility] Work Phone: Immunizations Immunization Date Immunization Notes Care Provider Fa cility 03-26-2021 COVID-19 mRNA-1273 (Moderna) MD Silver Flynn Work Phone: [facility] 07-04-2020 COVID-19 mRNA-1273 (Moderna) MD Silver Flynn Work Phone: [facility] 06-07-2020 COVID-19 mRNA-5123 (Moderna) MD Silver Flynn Work Phone: [facility] Payers Date Payer Category Payer [facility] [id number] 2015 Unknown [id number] 2009 Medicare MEDICARE [id number] 1959 Medicare [id number] 1959 Self-pay 1959 Unknown [id number] 1944 Unknown [id number] [id number] 1944 Unknown [id number] [id number] 1944 Unknown [id number] 9.2.1259 1944 Unknown [id number] 9.2.1259 1944 Unknown [id number] 9.2.1259 1944 Unknown [id number] 9.2.1259 1944 Unknown [id number] 9.2.1259 Unknown [employer] [id number] Unknown [id number] 9.2.531 Unknown [id number] 9.2.531 Unknown [id number] 9.2.531 Social History Date Type Detail Facility Tobacco smoking status [facility] Unknown if ever smoked [facility] Work Phone: Start: 1945 Sex Assigned At Male [facility] Tobacco smoking status MOIS Tobacco smoking consumption unknown [facility] Start: 1945 Sex assigned at Not on file [facility] Gender identity Not on file [facility] are Sex Male (finding) [facility] Start: 01-09-2025 Tobacco smoking status NHIS Ex-smoker (finding) [facility] Clinical Notes 11-27-2024 to 12-08-2024 Saulo Christensen, PT - 12/08/2024 11:30 AM EDT Note Date & Type Note Facility 12-08-2024 History of Presen t illness Narrative Images from the original note were not included. Physical Therapy Physical Therapy Treatment Visit Patient Name: Dawson Cain Today's Date: 12/08/2024 Encounter Diagnoses Name Primary? Acute hip pain, left Yes Left leg pain Visit number: 4 Supervised time: 25 minutes Total time: 50 minutes Precautions: DM II, hx of Prostate CA Subjective Pain: Pt. Reports 6/10 pain today presenting L buttock hip region and distal along lateral thigh and serrano. Soreness persists pt. Reports post PT. Overall progress: Pt. States f/u w/ Dr., x-rays performed of lumbar spine/reviewed and MRI ordered, advised to continue PT. Treatment: Therapeutic Exercise: Per grid sheet for HEP review and performance, initiation of core strengthening to tolerance, manual nerve glides, sciatic, ilitobial, hip ROM x 25 minutes supervised, 10 minutes unsupervised exercise Modalities: Lumbar traction x 15' 80#/40# in supine with legs elevated on stool, Assessment: Pt. Demonstrates no significant adverse pain during session that prevents exercise, core progression. Dural tension present w/ sciatic and iliotibial nerve glides, tolerated passive and active stretching well. Plan to continue w/ current treatment including traction, Juanito's flexion and neutral core stabilization for pain management. Plan: Dawson Cain will benefit from physical therapy 2 times per week for 4 weeks per above plan of care. documented in this encounter [facility] 12-05-2024 Evaluation note Diagnosis Onset Date Resolution Chronic pain acute December 05, 2024 1:20pm Lumbar pain acute December 05, 2024 1:20pm Osteoarthritis of spine with radiculopathy, lumbar region acute December 05 1:20pm [facility] Work Phone: 1(870) 563-243808-12-2025 Evaluation note* Diagnosis Onset Date Resolution Status Admit Date Chronic pain acute December 05, 2024 1:20pm Lumbar pain acute December 05, 2024 1:20pm Osteoarthritis of spine with radiculopathy, lumbar region acute Nov 1:20pm Chronic pain acute December 10:50am Lumbar pain acute December 10:50am Osteoarthritis of spine with radiculopathy, lumbar region acute Sep 2024 10:50am [facility] Work Phone: 1(410) 822-665608-12-2025 Evaluation note* Diagnosis Onset Date Resolution Status Admit Date Chronic pain acute December 05, 2024 1:20pm Lumbar pain acute December 05, 2024 1:20pm Osteoarthritis of spine with radiculopathy, lumbar region acute Nov 1:20pm Chronic pain acute December 10:50am Lumbar pain acute December 10:50am Osteoarthritis of spine with radiculopathy, lumbar region acute Dec 10:50am Chronic pain acute January 172024 8:37am Lumbar pain acute December 8:37am Osteoarthritis of spine with radiculopathy, lumbar region acute Dec 8:37am [facility] Work Phone: [phone]) 456-507808-04-2025 History of Present illness Narrative* Saulo Christensen, PT - 11/27/2024 11:30 AM EDT Images from the original note were not [...] Pt. Has been utilizing spc and FWW toreduce pressure on L LE. Mechanism of Onset: [...] traction 70/35# for lumbar decompression, may include moistheat, ice as needed to symptomatic areas of [...] w/o a.d. 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 Dawson Cain will benefit from physical therapy 2 times per week for 2-4 weeks per above plan ofcare. I hereby deem this POC medically necessary. Please sign below. Date: [facility] HealthcareEvaluation noteNo assessment information availableUniversity [facility] Work Phone: Evaluation note* Diagnosis Acute hip pain, left- Primary Left leg pain Pain in soft tissues of limb documented in this encounter [facility] HealthcareEvaluation note* Diagnosis Acute hip pain, left- Primary Left leg pain Pain in soft tissues of limb documented in this encounter [facility] HealthcareEvaluation note* Diagnosis Acute hip pain, left- Primary Left leg pain Pain in soft tissues of limb documented in this encounter [facility] Healthcare[facility] note* Diagnosis Onset Date Resolution Status Admit Date Chronic pain acute December 05, 2024 1:20pm Lumbar pain acute December 05, 2024 1:20pm Osteoarthritis of spine with radiculopathy, lumbar region acute Nov 1:20pm [facility] Work Phone: Evaluation note* Diagnosis Acute hip pain, left- Primary Left leg pain Pain in soft tissues of limb [facility] encounter [facility] (narrative)No reason for referral information availableMer[facility] Work Phone: Reason for visit Narrative* Rehabilitation - Outpatient (Routine) - Authorized Specialty Diagnoses / Procedures Referred By Ravi t Referred To Contact Physical Therapy Diagnoses Pain in left hip Procedures [place] PHYSICAL THERAP[facility] EVALUATION LOW COMPLEX 20 MINS Silver Flynn MD [address] [place] [address] Phone: tel:[phone] fax: Vanessa Nash, PT Referral ID Status Reason Start Date Expiration Date Visits Requested Visits Authorized [id number] Authorized Consult and Treat 11/14/2024 05/13/2025 30 30 [facility]* Rehabilitation - Outpatient (Routine) - Authorized Specialty Diagnoses / Procedures Referred By Contac t Referred To Contact Physical Therapy Diagnoses Pain in left hip Procedures [place] PHYS[facility] THERAP[facility] EVALUATION LOW COMPLEX 20 MINS Silver Flynn MD [address] [place] [address] Phone: tel:[phone] fax: Vanessa Nash, ZEKE Referral ID Status Reason Start Date Expiration Date Visits Requested Visits Authorized [id number] Authorized Consult and Treat 11/14/2024 04/25/2025 30 30 [facility] Summary Purpose Family History Relationship Condition Age at Onset Recorded Date/T tram father Heart failure Unknown mother Malignant neoplasm of breast Unknown Advance Directives Advance Directive Response Recorded Date/ Time Advance Directives No May 5:32pm Chief Complaint and Reason for Visit Chief Complaint D49.2 Chief Complaint Admit Date CONSULT DR FLYNN December 05, 2024 1: 20pm M54.50 - Low back pain, unspecified Augu st 2024 1:32pm Reason for Visit Admit Date Chronic pain December 05, 2024 1: 20pm Lumbar pain December 05, 2024 1: 20pm Osteoarthritis of spine with radiculopat hy, lumbar region December 05, 2024 1:20pm Chief Complaint Admit Date CONSULT DR FLYNN December 05, 2024 1: 20pm M54.50 - Low back pain, unspecified Augu st 2024 1:32pm M47.26 December 22, 2024 6: 52am Chief Complaint Admit Date CONSULT DR FLYNN December 05, 2024 1: 20pm M54.50 - Low back pain, unspecified Augu st 2024 1:32pm M47.26 December 22, 2024 6: 52am MRI RESULTS December 28, 2024 10:50am Reason for Visit Admit Date Chronic pain December 05, 2024 1: 20pm Lumbar pain December 05, 2024 1: 20pm Osteoarthritis of spine with radiculopat hy, lumbar region December 05, 2024 1:20pm Chronic pain December 28, 2024 10:50am Lumbar pain December 28, 2024 10:50am Osteoarthritis of spine with radiculopat hy, lumbar region December 28, 2024 10:50am Chief Complaint Admit Date CONSULT DR FLYNN December 05, 2024 1: 20pm M54.50 - Low back pain, unspecified Augu st 2024 1:32pm M47.December 22, 2024 6: 52am MRI RESULTS December 28, 2024 10:50am LUMBAR PAIN January 09, 2025 10:10am Chief Complaint Admit Date CONSULT DR FLYNN December 05, 2024 1: 20pm M54.50 - Low back pain, unspecified Augu st 2024 1:32pm M47.December 22, 2024 6: 52am MRI RESULTS December [...] hy, lumbar region January 17, 2025 8:37am Additional Source Comments (unrecognized sect ion and content) No Status Records FoundNo Status Records FoundNo Status Records Found INFORMATION SOURCE (unrecogn ized section and content) DATE CREATED AUTHOR 10/15/2021 [facility] DATE CREATED AUTHOR AUTHOR'S ORGANIZ ATION 12/11/2024 [facility] EPIC DATE CREATED AUTHOR AUTHOR'S ORGANIZ ATION 01/13/2025 [facility] y[facility] Care Teams (unrecognized sec tion [...] November 17, 2023 End: November 17, 2023 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 Relationship Specialty Start Date End Date Silver Flynn MD [address] [place] [facility] [place] [address] PCP - General Family Medicine 11/14/24 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 Relationship Specialty Start Date End Date Silver Flynn MD [address] [place] [facility] [address] PCP - General Family Medicine 11/14/24 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 Relationship Specialty Start Date End Date Silver Flynn MD [address] [place] [facility] [address] PCP - General Family Medicine 11/14/24 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 Relationship Specialty Start Date End Date Silver Flynn MD [address] [place] [facility] [place] [address] PCP - General Family Medicine 11/14/24 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 Relationship Specialty Start Date End Date Silver Flynn MD [address] [place] [facility] [address] PCP - General Family Medicine 11/14/24 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 Relationship Specialty Start Date End Date Silver Flynn MD [address] [place] [facility] [address] PCP - General Family Medicine 11/14/24 Team Status: Inactive Member Role Status Dates Breezy Ordoñez MD Attending Provider Active Sta rt: December 05, 2024 End: December 05, 2024 Silver Flynn MD Primary Care Provider Active Start: December 05, 2024 End: December 05, 2024 Silver Flynn MD Referring Provider Active Sta rt: December 05, 2024 End: December 05, 2024 Team Status: Active Member Role Status Jose Flynn MD Primary Care Provider Active Start: December 05, 2024 Breezy Ordoñez MD Attending Provider Active Sta rt: December 05, 2024 Team Status: Inactive Member Role Status Jose Flynn MD Primary Care Provider Active Start: December 05, 2024 End: December 05, 2024 Breezy Ordoñez MD Attending Provider Active Sta rt: December 05, 2024 End: December 05, 2024 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 Relationship Specialty Start Date End Date Silver Flynn MD [address] [place] [address] PCP - General Family Medicine 11/14/24 Team Status: Inactive Member Role Status Jose Flynn MD Primary Care Provider Active Start: December 22, 2024 End: December 22, 2024 Breezy Ordoñez MD Attending Provider Active Sta rt: December 22, 2024 End: December 22, 2024 Team Status: Inactive Member Role Status Jose Flynn MD Primary Care Provider Active Start: December 28, 2024 End: December 28, 2024 Breezy Ordoñez MD Attending Provider Active Sta rt: December 28, 2024 End: December 28, 2024 Team Status: Active Member Role Status Jose Flynn MD Primary Care Provider Active Start: January 09, 2025 Breezy Ordoñez MD Attending Provider Active Sta rt: January 09, 2025 Breezy Ordoñez MD Other Provider Active Start: January 09, 2025 Team Status: Inactive Member Role Status Jose Flynn MD Primary Care Provider Active Start: January 17, 2025 End: January 17, 2025 Breezy Ordoñez MD Attending Provider Active Sta rt: January 17, 2025 End: January 17, 2025 Goals (unrecognized section and content) Goals may be documented in a n alternate sectionGoals may be documented in an alternate sectionGoals may be documented in an alternate sectionGoals may be documented in an alternate sectionGoals may be documented in an alternate sectionGoals may be documented in an alternate sectionGoals may be documented in an alternate sectionGoals may be documented in an [...] BE BASED ON THE PRIMARY CLINICAL RECORDS. [facility]. provides no warranty or guarantee of the accuracy or completeness of information in this document.
--- OUTSIDE RECORDS SUMMARY | 2025-01-18 07:01 | XMS_ITS | Patient Health Record ---
Author Organization [facility] Address [address] [place] [address] Care Team Providers Care Emd Teacher Name Role Phone Brenden Christianson Primary Care Provider [phone] Allergies No Known Allergies Results Component Value Reference Range Notes CT angio neck Reviewed date:05/30/2024 06:52:21 PM Interpretation: Performing Lab: Notes/Report: Source Facility: [place] [address] CT Scan Report Signed Patient: DAWSON CAIN MR#: [id number] : 1945 Acct:[id number] Age/Sex: 78 / M ADM Date: 05/30/24 Loc: LAB Attending Dr: Silver Christianson M.D. Ordering Physician: Silver Christianson M.D. Date of Service: 05/30/24 Procedure(s): CT angio neck Accession Number(s): [id number] cc: Silver Christianson M.D. [place] [id number] Patient Name: DAWSON CAIN MRN: [id number] date: 1945 Sex: M Assigned Patient Location: LAB Current Patient Location: LAB Accession/Order Number: [id number] Exam Date: 05/30/2024 13:40 Report Date: 05/30/2024 [...] By: Madeleine Harrison M.D. Signed By: 05/30/24 1501 DD/ 1459 TD/TT: Polygraph Technician: CT angio head Reviewed date:05/30/2024 06:52:21 PM Interpretation: Performing Lab: Notes/Report: Source Facility: [place] [address] CT Scan Report Signed Patient: DAWSON CAIN MR#: [id number] : 1945 Acct:[id number] Age/Sex: 78 / M ADM Date: 05/30/24 Loc: LAB Attending Dr: Silver Christianson M.D. Ordering Physician: Silver Christianson M.D. Date of Service: 05/30/24 Procedure(s): CT angio head Accession Number(s): [id number] cc: Silver Christianson M.D. [place] [address] Patient Name: DAWSON CAIN MRN: [id number] date: 1945 Sex: M Assigned Patient Location: LAB Current Patient Location: LAB Accession/Order Number: [id number] Exam Date: 05/30/2024 13:40 Report Date: 05/30/2024 [...] By: Madeleine Harrison M.D. Signed By: 05/30/24 1501 DD/ 1459 TD/TT: Polygraph Technician: XR hip LT min 2V Reviewed date:11/07/2024 05:15:23 PM Interpretation: Performing Lab: Notes/Report: Source Facility: [place] [address] XRay Report Signed Patient: DAWSON CAIN MR#: [id number] : 1945 Acct:[id number] Age/Sex: 79 / M ADM Date: 11/07/24 Loc: RAD Attending Dr: Silver Christianson M.D. Ordering Physician: Silver Christianson M.D. Date of Service: 11/07/24 Procedure(s): XR hip LT min 2V Accession Number(s): [id number] cc: Silver Christianson M.D. [place] [address] Patient Name: DAWSON CAIN MRN: [id number] date: 1945 Sex: M Assigned Patient Location: [facility] Current Patient Location: [facility] Accession/Order Number: [id number] Exam Date: 11/07/2024 15:11 Report Date: 11/07/2024 15:12 At the request of: SILVER CHRISTIANSON MD Procedure: XR hip LT min 2V 2 views left plain film COMPARISON: None HISTORY: Left hip pain. 2 weeks duration ACUTE FINDINGS: None DEGENERATIVE CHANGE: Lateral superior bony densities. Consider prior injury. No articular collapse. No AVN. SOFT TISSUE FINDINGS: Unremarkable JOINT EFFUSION: None POSTOP CHANGES: None BONY MINERALIZATION: Adequate XR/XR hip LT min 2V IMPRESSION: Chronic lateral superior acetabular changes. Consider prior injury. Mild degeneration. Impression dictated by: Martell Fowler M.D. 11/07/2024 3:12 PM Dictation Location: [place] [address] Electronically authenticated by: [id number] Y Date: 11/07/2024 15:12 Dictated By: Martell Fowler D.O. Signed By: 11/07/24 1515 DD/ 1512 TD/TT: Polygraph Technician: CREATININE Reviewed date:05/30/2024 02:18:01 PM Interpretation: Performing Lab: Notes/Report: [facility] , Creatinine 0.95 0.70-1.30 mg/dL Estimated GFR ( Rosanne >60 >=60 mL/min/1.73m 2 Estimated GFR (Non- Yola >60 >=60 mL/min/1.73m 2 Performing Lab: see note ML - [facility] LB CA echo doppler complete Reviewed date:05/30/2024 06:52:21 PM Interpretation: Performing Lab: Notes/Report: Source Facility: [facility] [place] [address] [place] [address] Cardiology Report Signed Patient: DAWSON CAIN MR#: [id number] : 1945 Acct:[id number] Age/Sex: 78 / M ADM Date: 05/30/24 Loc: LAB Attending Dr: Silver Christianson M.D. Ordering Physician: Silver Christianson M.D. Date of Service: 05/30/24 Procedure(s): CA echo doppler complete Accession Number(s): [id number] cc: Silver Christianson M.D. Patient Name: DAWSON CAIN MR#: [id number] : 1945 Exam Date: 05/30/2024 Ordering Doctor: [...] ORTIZ Signed By: 05/30/241844 DD/ 43 TD/TT: Polygraph Technician: CBC AUTO DIFF Reviewed date:11/03/2024 01:11:06 PM Interpretation: Performing Lab: Notes/Report: [facility] , White Blood Count 6.8 4.0-11.0 10 3/uL Red Blood Count 3.67 4.70-6.10 10 6/uL Hemoglobin 13.3 14.0-18.0 g/dL Hematocrit 38.7 42.0-54.0 % Mean Corpuscular Volume 105.4 80.0-94.0 fL Mean Corpuscular Hemoglobin 36.2 25.9-34.0 pg Mean Corpuscular HGB Conc 34.4 29.9-35.2 g/dL Red Cell Distribution Width 14.4 11.0-15.0 % Platelet Count 318 150-450 10 3/uL Mean Platelet Volume 9.8 9.5-13.5 fL Neutrophils Percent Auto 62.6 43.0-75.0 % Lymphocytes Percent Auto 21.2 20.5-60.0 % Monocytes Percent Auto 15.1 1.7-12.0 % Eosinophils Percent Auto 0.4 0.9-7.0 % Basophils Percent Auto 0.6 0.2-2.0 % Immature Granulocytes Pct Auto 0.1 0.0-0.5 % Neutrophils Absolute Auto 4.2 1.4-6.5 10 3/uL Lymphocytes Absolute Auto 1.4 1.2-3.8 10 3/uL Monocytes Absolute Auto 1.0 0.3-0.8 10 3/uL Eosinophils Absolute Auto 0.0 0.0-0.7 10 3/uL Basophils Absolute Auto 0.0 0.0-0.1 10 3/uL Immature Granulocytes Abs Auto 0.01 0.00-0.03 10 3/uL Performing Lab: see note ML - [facility] LB PSA Total+% Free Reviewed date:11/05/2024 03:52:06 PM Interpretation: Performing Lab: Notes/Report: [facility] , Prostate Specific Ag <0.1 0.0-4.0 ng/mL According to the [place] [employer], Serum PSA kits cannot be used interchangeably. Results cannot be recurrence as an initial PSA value 0.2 ng/mL or greater radical prostatectomy. The AUA defines biochemical Flo ECLIA methodology. or greater. Values obtained with different assay methods or followed by a subsequent confirmatory PSA value 0.2 ng/mL of malignant disease. interpreted as absolute evidence of the presence or absence should decrease and remain at undetectable levels after PSA, Free <0.02 N/A ng/mL Flo ECLIA met hodology. % Free PSA TNP . % The table below lists the probability of prostate cancer for Routing Clerk: Dany Rubio PhD, Phone: [phone] 10.01-15.00% 24% 35% [phone]). Please note: Marivel et al did not make specific of men. 0.00-10.00% 56% 55% percent free PSA for any other population 4 and 10 ng/mL, by patient age (Marivel et al, MICHELL 1997, obtained for component test. [address], [place] [phone] 20.01-25.00% 10% 20% % Free PSA 50-64 yr 65-75 yr 15.01-20.00% 17% 23% Performed at: - [facility] [place] >25.00% 5% 9% Unable to calculate result since non-numeric result recommendations regarding the use of men with non-suspicious KEV results and total PSA between Performing Lab: see note - [facility] LB FREE T3 Reviewed date:12/04/2024 08:38:28 AM Interpretation: Performing Lab: Notes/Report: [facility] , Free T3 2.27 2.18-3.98 pg/mL Performing Lab: see note - [facility] LB T4 Reviewed date:12/04/2024 08:38:28 AM Interpretation: Performing Lab: Notes/Report: [facility] , T4 Thyroxine 8.00 4.50-12.10 ug/dL Performing Lab: see note - [facility] LB TSH Reviewed date:12/04/2024 08:38:28 AM Interpretation: Performing Lab: Notes/Report: [facility] , Thyroid Stimulating Hormone 3.482 0.358-3.740 u IU/mL Performing Lab: see note - [facility] LB URIC ACID SERUM Reviewed date:11/03/2024 01:11:06 PM Interpretation: Performing Lab: Notes/Report: [facility] , Uric Acid 3.6 3.5-7.2 mg/dL Performing Lab: see note - [facility] LB TSH Reviewed date:11/03/2024 01:11:06 PM Interpretation: Performing Lab: Notes/Report: [facility] , Thyroid Stimulating Hormone 1.863 0.358-3.740 u IU/mL Performing Lab: see note ML - [facility] LB T4 Reviewed date:11/03/2024 01:11:06 PM Interpretation: Performing Lab: Notes/Report: [facility] , T4 Thyroxine 6.80 4.50-12.10 ug/dL Performing Lab: see note - [facility] PROF 14(COMP METB) Reviewed date:11/03/2024 01:11:06 PM Interpretation: Performing Lab: Notes/Report: [facility] , Sodium 144 136-145 mmol/L Potassium 3.8 3.5-5.1 mmol/L Chloride 105 98-107 mmol/L Carbon Dioxide 31.3 21.0-32.0 mmol/L Anion Gap 11.5 Glucose 169 74-106 mg/dL Blood Urea Nitrogen 27.0 7.0-18.0 mg/dL Creatinine 0.80 0.70-1.30 mg/dL Estimated GFR ( Rosanne >60 >=60 mL/min/1.73m 2 Estimated GFR (Non- Yola >60 >=60 mL/min/1.73m 2 BUN Creatinine Ratio 33.8 Calcium 8.6 8.5-10.1 mg/dL Bilirubin Total 0.6 0.2-1.0 mg/dL Aspartate Amino Transferase 12 15-37 U/L Alanine Aminotransferase 18 16-63 U/L Alkaline Phosphatase 64 46-116 U/L Total Protein 6.4 6.4-8.2 g/dL Albumin Level 3.8 3.4-5.0 g/dL Globulin 2.6 Albumin Globulin Ratio 1.5 Performing Lab: see note ML - [facility] LB LIPID PROFILE Reviewed date:11/03/2024 01:11:06 PM Interpretation: Performing Lab: Notes/Report: [facility] , Triglycerides 80 <=150 mg/dL Cholesterol 161 <=200 mg/dL HDL Cholesterol 78 40-60 mg/dL <40 mg/dl - HIGH CARDIOVASCULAR RISK > or =60 mg/dl - LOW CARDIOVASCULAR RISK LDL Cholesterol Calculated 67.0 >190 mg/dl VERY HIGH 100-129 mg/dl NEAR OR ABOVE OPTIMAL 130-159 mg/dl BORDERLINE HIGH 160-189 mg/dl HIGH <100 mg/dl OPTIMAL VLDL CHOLESTEROL 16.0 Chol HDL Ratio 2.1 7.1 - 11.0 MODERATE RISK 4.4 - 7.1 AVERAGE RISK >11.0 HIGH RISK 3.3 - 4.4 LOW RISK Performing Lab: see note ML - [facility] GLYCOHEMOGLOBIN A1C Reviewed date:11/03/2024 01:11:06 PM Interpretation: Performing Lab: Notes/Report: [facility] , Glycohemoglobin A1C 6.7 4.5-6.2 % ADA THERAPEUTIC TARGET < 7.0 ACTION SUGGESTED ADA RECOMMENDED LIMIT 4.0 - 6.0 > 7.0 Estimated Average Glucose 146 Performing Lab: see note ML - [facility] FREE T3 Reviewed date:11/03/2024 01:11:06 PM Interpretation: Performing Lab: Notes/Report: [facility] , Free T3 1.86 2.18-3.98 pg/mL Performing Lab: see note ML - [facility] Reason For Referral Reason Pain Management plea se! Thank You Diagnosis 1 Sciatic leg pain (M5 4.30) Referral Organization [facility] Referring Provider First Name Brenden Referring Provider Last Name [facility] Referring Provider [facility] lavelle Referred Provider Breezy Ordoñez Referred Provider Specialty Pain Medicin e Referral Priority Routine Diagnosis 1 Left hip pain (M25.5 52) Referral Organization [facility] Referring Provider First Name Brenden Referring Provider Last Name [facility] Referring Provider [facility] lavelle Referred Provider IMMANUELS [place] Referred Provider Specialty Physical The rapist Referral Priority Routine Medications Medication SIG (Take, Route, Frequency, Duration) Notes Start Date End Date Status Viagra 100 MG 1 tablet as needed O rally Once a day; Duration: 30 days Active amLODIPine Besylate 5 MG Take 1 tablet b y mouth once daily; Duration: 90 Active Glimepiride 4 MG 1 tablet Orally twic e a day; Duration: 30 days 01/11/2025 Active Atorvastatin Calcium 20 MG Take 1 tablet by mouth once daily Orally Once a day; Duration: 90 days Active Accu-Chek Mary Plus - as directed In Vitro Active Lisinopril 40 MG Take 1 tablet by once daily; Duration: 30 days Active traZODone HCl 50 MG Take 1 tablet by sonal th twice daily; Duration: 90 days Active metFORMIN HCl 500 MG 2 tablet with a aristides l Orally twice daily; Duration: 90 days 09/07/2022 Active Invokana 100 MG 1 tablet before the first meal of the day Orally Once a day; Duration: 90 days Active Lancets Super Thin 28G - as directed Active Pantoprazole Sodium 40 MG 1 tablet 1/2 t o 1 hour before morning meal Orally Once a day; Duration: 90 days Active Pioglitazone HCl 45 MG Take 1 tablet by mouth once daily; Duration: 90 Active Social History Tobacco Use: Social History Observation Description Date Details (start date - stop date) Never Smoker NA - NA Tobacco Use/Smoking Question Answer Notes Patient is a nonsmoker Alcohol Screen (Audit-C) Question Answer Notes Did you have a drink containing alcohol in the p ast year? No Points 0 Interpretation Negative AUDIT-C (Standard) Question Answer Notes Did you have a drink containing alcohol in the p ast year? No Points 0 Interpretation Negative Problems Problem Type SNOMED Code ICD Code Onset Dates Problem Status W/U Status Risk Notes Problem History of fall (947073160) History of falling (Z91.81) Active confirmed Problem Hyperlipidemia (33970805) Hyperlipidemia (E78.5) Active confirmed Problem Hypertension (55917231) Hypertension (I10) Active confirmed Problem Hypothyroidism (17028181) Hypothyroidism (E03.9) Active confirmed Problem Well adult (472730173) Well adult (Z00.00) Active confirmed Problem Sciatica (51885021) Sciatic leg pain (M54.30) Active confirmed Problem Right upper quadrant pain (996801624) Abdominal pain, RUQ (R10.11) Active confirmed Problem 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) Active confirmed Problem Carcinoma of prostate (377200133) Carcinoma of prostate (C61) Active confirmed Problem Diabetes mellitus type II (00499799) Diabetes mellitus, type II (E11.9) Active confirmed Problem Benign prostatic hypertrophy without outflow obstruction (227846736) Benign hypertrophy of prostate (N40.0) Active confirmed Vital Signs Temperature 99.1 degrees Fahrenheit 08/21/2024 Blood pressure diastolic 82 mm Hg 01/11/2025 Height 69 in 01/11/2025 Blood pressure systolic 148 mm Hg 01/11/2025 Weight 171.4 lbs 01/11/2025 BMI 25.31 kg/m2 01/11/2025 Procedures Procedure Date Ordered Date Performed Result Body Sit e CARDIO Echocardiogram 05/24/2024 N/A CARDIO Echocardiogram 01/11/2025 N/A Encounters Encounter Location Date Provider Diagnosis [facility] [address] [place] [place] [address] 03/02/2024 Brenden Hoy Diabetes mellitus, t ype II E11.9 [facility] [address] [facility] [place] [address] 03/10/2024 Brenden Hoy Diabetes mellitus, t ype II E11.9 [facility] [address] [facility] [place] [address] 03/13/2024 Brenden Hoy Diabetes mellitus, t ype II E11.9 [facility] [address] [facility] [place] [address] 05/16/2024 Brenden Hoy Diabetes mellitus, t ype II E11.9 [facility] [address] [facility] [place] [address] 05/30/2024 Brenden Hoy [facility] [address] [facility] [place] [address] 11/03/2024 Brenden Hoy Hypothyroidism E03.9 [facility] [address] [facility] [place] [address] 11/05/2024 Brenden Hoy [facility] [address] [facility] [place] [address] 11/07/2024 Brenden Hoy Hip pain, acute, lef t M25.552 [facility] [address] [facility] [place] [address] 11/08/2024 Brenden Hoy [facility] [address] [facility] [place] [address] 11/10/2024 Brenden Hoy Sciatic leg pain M54 .30 [facility] [address] [facility] [place] [address] 11/13/2024 Brenden Hoy [facility] [address] [facility] [place] [address] 11/13/2024 Brenden Hoy Left hip pain M25.55 [address] [place] [address] [place] [address] 12/04/2024 Brenden Hoy [facility] [address] [place] [address] 12/29/2024 Brenden Hoy [facility] [address] [place] [address] 01/01/2025 Brenden Hoy [facility] [address] [place] [address] 05/24/2024 Brenden Hoy Vision loss H54.7 [place] [address] [place] [address] 08/21/2024 Brenden Hoy Acute non-recurrent sinusitis, unspecified location J01.90 and Nasal congestion R09.81 [place] [address] [place] [address] 11/01/2024 Brenden Hoy Sciatic leg pain M54 .30 ; Hyperlipidemia E78.5 ; Hypertension I10 ; Carcinoma of prostate C61 and Diabetes mellitus, type II E11.[address] [address] 01/11/2025 Brenden Hoy Hyperlipidemia E78.5 ; Hypertension I10 ; Diabetes [...] Diabetes mellitus, type II (ICD-10 - E11.9) 01/11/2025 Hyperlipidemia (ICD-10 - E78.5) on meds - stable 01/11/2025 Hypertension (ICD-10 - I10) stable here 03/02/2024 Diabetes mellitus, type II (ICD-10 - E11.9) 03/10/2024 Diabetes mellitus, type II (ICD-10 - E11.9) 03/13/2024 Diabetes mellitus, type II (ICD-10 - E11.9) 05/16/2024 Diabetes mellitus, type II (ICD-10 - E11.9) 11/03/2024 Hypothyroidism (ICD-10 - E03.9) 11/07/2024 Hip pain, acute, left (ICD-10 - M25.552) 11/10/2024 Sciatic leg pain (ICD-10 - M54.30) 11/13/2024 Left hip pain (ICD-10 - M25.552) 05/24/2024 Vision loss (ICD-10 - H54.7) 08/21/2024 Acute non-recurrent sinusitis, unspecified location (ICD-10 - J01.90) Rest and drink more liquids, especially water. You may use a humidifier or vaporizer to help keep the drainage moist. Yelv-dge-tbwjzpw Nasal Saline may help the stuffy and runny nose. Use Ibuprofen and or Tylenol as needed for fever, chills, body aches or pain. Children 5 years old should not be given qgfl-lgj-avpireh cough and cold medications such as guaifenesin and dextromethorphan. If you're over age 5, you may try txrm-ady-tysuzhj cold medications such as guaifenesin and dextromethorphan, [...] days 08/21/2024 Nasal congestion (ICD-10 - R09.81) 01/11/2025 Diabetes mellitus, type II (ICD-10 - E11.9) adjusted glimeride 01/11/2025 Hypothyroidism (ICD-10 - E03.9) on meds - checkon on labs 01/11/2025 Murmur (ICD-10 - R01.1) Plan Of Treatment Pending Test Test Name Order Date CMP (COMPLETE METABOLIC PANEL) 3 CMP (COMPLETE METABOLIC PANEL) 4 HEMOGLOBIN A1C (GLYCO) 09/24/2023 HEMOGLOBIN A1C (GLYCO) 11/01/2024 HEMOGLOBIN A1C (GLYCO) 09/23/2022 LIPID PANEL (CHOL/TRIG/HDL/LDL) 09/24/19 23 LIPID PANEL (CHOL/TRIG/HDL/LDL) 09/24/19 24 LIPID PANEL (CHOL/TRIG/HDL/LDL) 11/02/19 25 CBC WITH DIFF 09/24/2023 CBC WITH DIFF 09/23/2022 URIC ACID 11/01/2024 CARDIO Echocardiogram 05/24/2024 CARDIO Echocardiogram 01/11/2025 PSA-FREE AND TOTAL 11/01/2024 PSA-FREE AND TOTAL 09/24/2023 PSA-FREE AND TOTAL 09/23/2022 STOOL OCCULT BLOOD 09/23/2022 STOOL OCCULT BLOOD 09/24/2023 THYROID PANEL (T4/TSH/FREE T3) 4 THYROID PANEL (T4/TSH/FREE T3) 5 THYROID PANEL (T4/TSH/FREE T3) 3 THYROID PANEL (T4/TSH/FREE T3) 5 CMP (COMP MET MELGAR) w/eGFR CKD-EPI 2024 CBC WITH DIFF 11/01/2024 Next Appt Details Provider Name:Brenden Christianson, 10:15:00 AM, [address] [place], [address], Insurance Providers Payer Name Payer Address Payer Phone Subscriber Number Group Number Insured Name Patient Relationship to Insured Coverage Start Date Coverage End Date [place]IC[place] [address] [place] [address] [id number] Dawson Cain Self - patient is the insured [employer] [address] [place] [address] [id number] Dawson Cain Self - patient is [...] C61 Rectal bleeding K62.5 Kidney stones 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
--- OUTSIDE RECORDS SUMMARY | 2025-01-18 07:01 | XMS_ITS | Clinical Summary ---
Author Organization [facility] Address [address] [facility] [place] [address] Care Team Providers Care Rough Carpenter Name Role Phone Avni Flynn MD Primary Care Provider [phone] Active Problems Problem Noted Date Diagnosed Date Chronic left hip pain 11/27/2024 Left leg pain 11/27/2024 Encounters Date Type Department Care Team Description 12/11/2024 9:30 AM EDT Treatment [facility] [address] [place] [address] Sarahi Mckeon, LICENSED CLINICIAN Acute hip pain, left (Primary Dx); Left leg pain 12/11/2024 Bamboo flowsheet [facility] [place] [facility] [address] [place] [address] Sarahi Mckeon, LICENSED CLINICIAN 12/11/2024 Travel 12/08/2024 11:30 AM EDT Treatment [facility] [address] [place] [address] Nai Christensen L, PT Acute hip pain, left (Primary Dx); Left leg pain 12/08/2024 Bamboo flowsheet [facility] [place] [facility] [address] [place] [address] Nai Christensen, PT 12/08/2024 Travel 12/04/2024 11:30 AM EDT [facility] [address] [place] [address] Gabby Livingston, LICENSED CLINICIAN Acute hip pain, left (Primary Dx); Left leg pain 12/04/2024 Bamboo flowsheet [facility] [place] [facility] [address] [place] [address] YaraGabby ashford, LICENSED CLINICIAN 12/04/2024 Travel 12/01/2024 8:00 AM EDT [facility] [address] [facility] [address] [place] [address] YaraKamrani, LICENSED CLINICIAN Acute hip pain, left (Primary Dx); Left leg pain 12/01/2024 Bamboo flowsheet [facility] [address] [facility] [address] [place] [address] YaraGabby ashford, LICENSED CLINICIAN 12/01/2024 Travel 11/27/2024 11:30 AM EDT [facility] [address] [facility] [address] [place] [address] Nai Christensen, PT Acute hip pain, left (Primary Dx); Left leg pain 11/27/2024 Plan of Care Documentation [facility] [address] [facility] [address] [place] [address] 11/27/2024 Bamboo flowsheet [facility] [place] [facility] [address] [facility] [address] [place] [address] Nai Christensen, PT 11/27/2024 Travel from Last 3 Months Social History Tobacco Use Types Packs/Day Years Used Date Smoking Tobacco: Never Assessed Sex and Gender Information Value Date Recorded Sex Assigned at Not on file Legal Sex Male 9:59 AM EDT Gender Identity Not on file Sexual Orientation Not on file Plan of Treatment Health Maintenance Due Date Last Done Comments Pneumococcal Vaccine: 65+ Years (1 of 1 - PCV) 995 Influenza Vaccine (#1) 2024 Insurance MEDICARE BCBS Care Teams Rough Carpenter Relationship Specialty Start Date End Date Avni Flynn MD [address] [place] [address] PCP - General Family Medicine 11/14/24
--- OUTSIDE RECORDS SUMMARY | 2025-01-18 07:01 | XMS_ITS | Clinical Summary ---
Author Organization [facility] Address [address] [place], [place] [id number] Care Team Providers Care Fire Alarm Installer Name Role Phone Avni Flynn MD Primary Care Provider [phone] Allergies No known active allergies Medications AVANDIA 8 MG TAB once a day 30 0 04/09/2005 Active CIALIS 5 MG TAB prn 30 0 04/09/2005 Active METAFORM ORAL PACKET 500mg b.i.d. 30 0 04/22/2005 Active AMARYL 4 MG TAB b.i.d 60 0 04/22/2005 Active LIPITOR 20 MG TAB Take one(1) tablet daily. 30 0 04/22/2005 Active TYLENOL 325 MG TAB Take two(2) tablets every four(4) to six(6) hours as needed. 0 04/22/2005 Active ONE DAILY MULTI-VITAMIN TAB once a day 0 04/22/2005 Active TRAZODONE 50 MG TAB b.i.d 30 0 04/22/2005 Active Active Problems Problem Noted Date Diagnosed Date Malignant neoplasm of prostate 06/18/2005 Social History Tobacco Use Types Packs/Day Years Used Date Smoking Tobacco: Never Assessed Sex and Gender Information Value Date Recorded Sex Assigned at Not on file Legal Sex Male 7:33 AM EST Gender Identity Not on file Sexual Orientation Not on file Last Filed Vital Signs Vital Sign Reading Time Taken Comments Blood Pressure 162/88 06/24/2006 1:14 PM EST Pulse 74 06/24/2006 1:14 PM EST Temperature 37 C (98.6 F) 05/06/2005 1:20 PM EST Respiratory Rate 20 06/24/2006 1:14 PM EST Oxygen Saturation 98% 06/04/2005 12:00 AM EST Inhaled Oxygen Concentration - - Weight 93 kg (205 lb) 06/24/2006 1:14 PM EST Height 177.8 cm (5' 10 ) 06/04/2005 12:00 AM EST Body Mass Index 29.41 06/04/2005 12:00 AM EST Plan of Treatment Health Maintenance Due Date Last Done Comments Anxiety Screening 1963 Depression Screening 1963 DTaP,Tdap,Td Vaccine (1 - Tdap) 10/07/1963 Pneumococcal Vaccine: 50+ (1 of 1 - PCV) 1994 Shingrix Vaccine (1 of 2) 1994 Diabetes Screening 06/04/2008 06/04/2005, 06/04/2005 RSV Vaccine (1 - 1-dose 75+ series) 10/07/2019 Advance Directive Discussion 04/26/2024 Influenza Vaccine (#1) 2024 Procedures Procedure Name Priority Date/Time Associated Diagnosis Comments BASIC METABOLIC PANEL Routine 06/04/2005 3:26 PM EST Malign Neopl Prostate from Last 3 Months or Most Recently Relevant to Health Maintenance Results * (ABNORMAL) BASIC METABOLIC PNL (06/04/2005 3:26 PM EST) Glucose 143(A) 65 - 100 mg/dL [facility] BUN 17 10 - 25 mg/dL [facility] Creatinine 1.0 0.7 - 1.4 mg/dL [facility] Sodium 138 135 - 146 mmol/L [facility] Potassium 4.8 3.5 - 5.0 mmol/L [facility] Chloride 101 98 - 110 mmol/L [facility] CO2 32 23 - 32 mmol/L [facility] Anion Gap 5 0 - 15 mmol/L [facility] Calcium 9.5 8.5 - 10.5 mg/dL [facility] Blood specimen (specimen) BLOOD SPECIMEN / Unknown 06/04/2005 3:26 PM EST [facility] Final Result [facility] [address] [place] [address] from Last 3 Months or Most Recently Relevant to Health Maintenance Insurance BLUE CARD PPO [employer] Care Teams Fire Alarm Installer Relationship Specialty Start Date End Date Avni Flynn MD PCP - General 03/23/05
--- NOTE | 2025-01-18 07:03 | CA_ITS ---
Patient Name: SUHAS HAMMOND MR#: [id number] : 1945 Exam Date: 01/18/2025 Ordering Doctor: DR SILVER CHRISTIANSON . ECHOCARDIOGRAM REPORT PROCEDURE: CA ECHO DOPPLER COMPLETE INDICATIONS: Murmur COMPARISON: None. DESCRIPTION: COMPLETE ECHOCARDIOGRAM Real-time transthoracic echocardiography with 2D, M-mode, spectral and color flow Doppler performed. QUALITY: Technical quality was good. LEFT VENTRICLE: Normal chamber size. Normal left ventricular wall thickness. Global left ventricular systolic function is normal. LV EF: Estimated left ventricular ejection fraction is 60%. DIASTOLIC: Diastolic function is indeterminate. ATRIAL SEPTUM: LEFT ATRIUM: Moderate dilatation. RIGHT ATRIUM: Mild dilatation. RIGHT VENTRICLE: Normal chamber size. Normal right ventricular systolic function. TRICUSPID VALVE: Normal mobility and thickness. No stenosis with mild regurgitation. No evidence of pulmonary hypertension. RVSP 34 mmHg. MITRAL VALVE: Normal mobility and thickness. No evidence of mitral valve stenosis. There is no mitral annular calcification. Trivial mitral regurgitation. AORTIC VALVE: Normal trileaflet appearance. Mildly calcified aortic valve. Normal leaflet mobility. No evidence of aortic valve stenosis. No aortic regurgitation. AORTIC ROOT: Normal diameter and appearance, measuring 3.6 cm. Ascending aorta is normal in size measuring 2.7 cm. PULMONIC VALVE: Normal thickness and mobility. No stenosis. Trivial regurgitation. PERICARDIUM: No evidence of pericardial effusion. IVC: Collapses with inspiration. Normal size. PLEURA: CONCLUSION: 1. Normal left ventricular size and systolic function. LVEF is estimated at 60%. 2. Normal right ventricular size and systolic function. 3. Mild to moderate biatrial dilatation. 4. Mild tricuspid regurgitation. 5. Normal right-sided pressures. Adult Echocardiography Procedure Report Left Ventricle LVEDD (3.7 - 5.6 cm): 4.73 cm LVESD (2.2 - 4.0 cm): 3.22 cm LVIVS thickness (0.6 - 1.2 cm): 1.01 cm LVPW thickness (0.5 - 1.0 cm): 0.99 cm e': 0.09 m/s E - e': 9.65 LVOT Max Gradient: 5.28 mm[Hg], 5.82 mm[Hg] LVOT Area (cm2): 1.18 m/s Peak Velocity (LVOT): 1.15 m/s, 1.21 m/s Mean Velocity (LVOT): 0.74 m/s LVOT Diameter 2.15 cm Left Ventricular Ejection Fraction: 60 % Left Atrium LA Volume Index (2D A2C): 45.36 ml/m2 Left Atrium Systolic Dimension: 3.86 cm Mitral Valve MV E to A Ratio: 0.92 Mitral Valve A-Wave Peak Velocity: 0.94 m/s Mitral Valve E-Wave Peak Velocity: 0.86 m/s Right Ventricle RV Internal Diastolic Dimension: 3.73 cm Aorta AO Root Diam: 3.61 cm Ascending Ao Diam: 2.75 cm Aortic Valve AoV Area (Peak Zana): 3.14 cm2, 3.18 cm2, 3.11 cm2 AoV Area (VTI): 2.92 cm2, 3.18 cm2, 2.67 cm2 Peak Velocity(Antegrade Flow): 1.31 m/s, 1.41 m/s Peak Gradient(Antegrade Flow): 6.86 mm[Hg], 7.91 mm[Hg] Mean Velocity(Antegrade Flow): 0.82 m/s, 0.96 m/s Mean Gradient(Antegrade Flow): 3.13 mm[Hg], 4.25 mm[Hg] Velocity Time Integral: 27.27 cm, 28.87 cm Tricuspid Valve Peak Velocity (Regurgitant Flow): 2.27 m/s, 2.78 m/s, 2.68 m/s Pulmonic Valve Mean Gradient: 2.44 mm[Hg] Mean Velocity: 0.71 m/s Peak Velocity: 1.17 m/s, 1.03 m/s Peak Gradient: 4.26 mm[Hg], 5.49 mm[Hg] Right Atrium Right Atrium Systolic Pressure: 48.47 ml, 48.47 ml Dictated by: Quincy Ortiz M.D. on 01/18/2025 at 16:49 Approved by: Quincy Ortiz M.D. on 01/18/2025 at 17:02
== END 2025-01-18 06:58 | disposition home or self-care (01) ==
LOC: CARD 06:58
PROVIDERS: PCP Family Medicine; Visit Provider Family Medicine
DX: R01.1 Cardiac murmur, unspecified (principal)
CPT/HCPCS: 93306